=== PATIENT | female | born 1940 | race Caucasian/White ===

== ENCOUNTER 2024-08-25 07:46 | Outpatient (CLI) | payer MEDICARE, SELFPAY ==
--- NOTE | ~2024-08-25 | US_ITS ---
US abdomen complete EXAMINATION: US Abdomen Complete INDICATION: Chronic kidney disease PROCEDURE: Realtime High Resolution abdomen ultrasound. COMPARISON: No prior studies for comparison FINDINGS: Gallbladder within normal limits. No gallstones, pericholecystic fluid, gallbladder wall t hickening or biliary dilatation. Common bile duct measures 9 mm. Liver echotexture within normal limits without focal mass. Pancreas within normal limits. Pancreati c tail is obscured by bowel gas. Spleen is unremarkeable. Spleen measures 8.6 cm. Renal echotexture is within normal limits bilaterally without hydronephrosis, contour deforming mass or renal stone. Ri ght kidney measures 9 cm. Left kidney measures 9.9 cm. Visualized aspects of the aorta and IVC are within normal limits. Portal vein is patent. No sonograph ic Hatch's sign indicated by the technologist. IMPRESSION: 1: Normal abdominal ultrasound. Reviewed, dictated and finalized at location A.
== END 2024-08-25 07:47 | disposition home or self-care (01) ==
PROVIDERS: PCP Internal Medicine; Visit Provider Internal Medicine
DX: N18.9 Chronic kidney disease, unspecified (principal); R16.1 Splenomegaly, not elsewhere classified; D69.6 Thrombocytopenia, unspecified
CPT/HCPCS: 76700

== ENCOUNTER 2024-08-26 11:59 | Outpatient (CLI) | payer MEDICARE, SELFPAY ==
--- NOTE | ~2024-08-26 | US_ITS ---
Pelvic ultrasound. Clinical History: Chronic kidney disease, splenomegaly, thrombocytopenia Technique: Realtime transabdominal scanning of the pelvis was performed. Color flow Doppler and Doppl er spectral analysis were performed. Findings: The uterus is anteverted, and measures 4.8 x 2.3 x 2.3 cm. The endometrial stripe has a th ickness of 4 mm. No focal mass is identified. Neither ovary seen. No adnexal mass seen. There is no evidence of free fluid in the cul de sac. Impression: Unremarkable appearance of the uterus. Neither ovary visualized. Reviewed, dictated and finalized at location . Impression: Unremarkable appearance of the uterus. Neither ovary visualized.
--- NOTE | ~2024-08-26 | US_ITS ---
EXAMINATION: US carotid duplex BI DATE: 08/26/2024 13:24 INDICATION: Carotid bruit TECHNIQUE: Grayscale, color Doppler, and pulsed Doppler images of the cervical carotid arteries were obtained. The degree of vessel stenosis is placed in one of the following categories: normal, <50%, 5 0-69%, >=70% but less than near-occlusion, near-occlusion, or total occlusion. Note that percent sten osis relative to normal distal artery lumen diameter is indirectly measured from velocity measurement s as described by Phil, et al. Radiology 2003; 229:340-346. Notes: Normal: Peak systolic velocity <125 centimeters/sec and no plaque <50%. Peak systolic velocity <125 ( EDV <40; ICA/CCA PSV ratio <2.0; used these factors only a tandem lesions or low cardiac output or co ntralateral disease) 50-69 %: PSV 125-230 (EDV 40-100; ratio 2-4) >= 70% but less than near occlusion: PSV greater than 230 (EDV > 100; ratio> 4.0) Near Occlusion: PSV that is variable; markedly narrowed lumen Occlusion: Absent flow on color/spectral Doppler and no lumen on smith scale. COMPARISON: None. FINDINGS: RIGHT: The right common carotid artery (CCA) peak systolic velocity (PSV) is 65 cm/s. The right internal car otid artery (ICA) PSV is 169 cm/s. The right ICA end-diastolic velocity (EDV) is 36 cm/s. The right I CA/CCA PSV ratio is 2.6. The external carotid artery (ECA) PSV is 96 cm/s. There is antegrade flow in the right vertebral artery. LEFT: The left CCA PSV is 68 cm/s. The left ICA PSV is 102 cm/s. The left ICA EDV is 25 cm/s. The left ICA/ CCA PSV ratio is 1.5. The ECA PSV is 104 cm/s. There is antegrade flow in the left vertebral artery. IMPRESSION: 1. 50-69% stenosis in the right internal carotid artery by sonographic criteria. 2. Less than 50% stenosis in the left internal carotid artery by sonographic criteria. Reviewed, dictated and finalized at location A. IMPRESSION: 1. 50-69% stenosis in the right internal carotid artery by sonographic criteria . 2. Less than 50% stenosis in the left internal carotid artery by sonographic cr iteria.
--- NOTE | ~2024-08-26 | DEXA_ITS ---
Bone Density Report Name: CHET PIMENTEL Age: 84 Sex: Female Ethnicity: White Date of : 1940 Indication: postmenopausal; screening for osteoporosis; prior fracture; cancer; Referring Provider: Eliseo Mar Study: Bone densitometry was performed. Exam Date: August 26, 2024 Accession number: [id number] Bone Density: Region BMD T-score Z-score Classification AP Spine(L1-L4) 0.929 -1.1 1.8 Osteopenia Femoral Neck (Left) 0.500 -3.1 -0.6 Osteoporosis Total Hip (Left) 0.659 -2.3 0.0 Osteopenia World Health Organization criteria for BMD impression classify patients as: Normal (T-score at or above -1.0), Osteopenia (T-score between -1.0 and -2.5), or Osteoporosis (T-score at or below -2.5). 10-year Fracture Risk: FRAX not reported because: Some T-score for Spine Total or Hip Total or Femoral Neck at or below -2.5 Prior hip or vertebral fracture Clinical Information Provided by Patient: Have had a previous hip or vertebral fracture Has had a low trauma fracture Has used the following medications: Vitamin D Has the following medical conditions: Cancer Patient maximum height was 65 Menopause Age: 48 No regular weight bearing exercise Drinks caffeinated beverages Onset of menses at age 10 Number of children 3 Impression: The patient has established osteoporosis, based on the Left Femoral Neck T-score and the existence of a prior fracture. The patient has risk factors, including: previous fracture. Discussion: HIGH RISK OF FRACTURE. BONE DENSITY IS UNDESIRABLY LOW AT ONE OR MORE SKELETAL SITES, CONSISTENT WITH POSTMENOPAUSAL OSTEOPOROSIS. This patient's lowest T-score, in a patient who has previously fractured, meets the World Health Organization's (WHO) criteria for severe osteoporosis. In untreated patients, the risk of osteoporotic fracture increases approximately two-fold for each 1.0 SD decrease in T-score. Low bone density is not the only risk factor for fracture; also consider factors such as patient's age, frailty or poor health, risk of falling, risk of injury, previous osteoporotic fracture, family history of osteoporosis, cigarette smoking, low body weight, etc. Not everyone with low bone mineral density has osteoporosis; osteomalacia and other metabolic bone disorders should also be considered. Patients who have osteoporosis should be evaluated for specific diseases and conditions (secondary causes) that may cause or contribute to bone loss. The [place] [employer] Endocrinologists (AACE) and National Osteoporosis Foundation (NOF) recommend pharmacologic intervention for all postmenopausal women with a previous hip or vertebral fracture and a T-score in this range. The patient should follow a healthful lifestyle (good nutrition with adequate calcium and vitamin D, and appropriate weight-bearing exercise). Follow-Up: Consider a repeat BMD and Vertebral Fracture Assessment (VFA) exam in 2 years or sooner if medically necessary, to reassess this patient's status. Reported by: KLEVER on 08/26/2024 1:44:00 PM. Reviewed, dictated and finalized at location A.
--- NOTE | ~2024-08-26 | XR_ITS ---
3 VIEWS LUMBAR SPINE Ordering provider: Eliseo Mar MD History: . LOW BACK PAIN . Comparison: None. FINDINGS: VERTEBRAL BODIES:Dextroscoliosis. No visible fracture or subluxation. DISK SPACES: Degenerative disc disease at the level of L3-L4 and L4-L5. Multilevel facet joint diseas e. SOFT TISSUES: Atherosclerotic changes of the aorta. IMPRESSION: No acute osseous abnormality lumbar spine. Multilevel degenerative disc disease. Reviewed, dictated and finalized at location A.
--- NOTE | ~2024-08-26 | US_ITS ---
US arterial ankle brachial ind INDICATION: Peripheral arterial disease TECHNIQUE: Segmental pressures and plethysmographic and Doppler waveforms of the brachial and lower e xtremity arteries were obtained. COMPARISON: None. FINDINGS: Right and left brachial artery pressures of 164 mm Hg and 166 mm Hg, respectively, are concordant (no rmal difference <= 30 mmHg). The right ankle-brachial index (ANNA) is 0.98 (normal >= 0.9-1.0). The right great toe-brachial index (TBI) is 0.57 (normal >= 0.60). The left ANNA is 1.05. The left TBI is 0.53. There is biphasic flow in the dorsalis pedis arteries bilaterally and monophasic flow in the posterio r tibial arteries. IMPRESSION: 1. Mildly diminished bilateral toe brachial indices consistent with peripheral arterial disease. 2: Normal ankle-brachial indices. Reviewed, dictated and finalized at location A.
--- NOTE | ~2024-08-26 | MM_ITS ---
EXAMINATION: MM screening jocelyn BI w edd HISTORY: Screening TECHNIQUE: Craniocaudal and mediolateral oblique 3-D tomosynthesis images were obtained and synthetic 2-D images were generated. CAD analysis was submitted and interpreted. COMPARISON: No prior mammogram is available for comparison at this institution. BREAST PARENCHYMAL COMPOSITION: Not dense: There are scattered areas of fibroglandular density. FINDINGS: There is distortion in the left breast in the lower inner quadrant, likely from prior lumpe ctomy. Clinically correlate. There is no evidence of suspicious mass, calcification, or architectural distortion to suggest malignancy in either breast. There has been no suspicious interval change. IMPRESSION: 1. Distortion of the left breast is most likely postsurgical. 2. Recommend comparison to previous outside mammograms. BI-RADS Category 0: Incomplete: Needs additional imaging evaluation. Reviewed, dictated and finalized at location A.
--- NOTE | ~2024-08-26 | XR_ITS ---
XR hip BI wo pelvis Ordering provider: Eliseo Mar MD History: . B/L HIP PAIN . Comparison: None. FINDINGS: BONES: No acute fracture or dislocation. HIP JOINT SPACES: Total right hip arthroplasty. Severe left hip osteoarthritic changes. SACROILIAC JOINT SPACES: The sacroiliac joint spaces are normal. PUBIC SYMPHYSIS: Normal. SOFT TISSUES: Normal. IMPRESSION: No acute osseous abnormality of the bilateral hips and pelvis. Right hip arthroplasty. Left hip severe osteoarthritic changes. Reviewed, dictated and finalized at location A.
--- NOTE | ~2024-08-26 | XR_ITS ---
XR chest 2V 08/26/2024 13:15 Indication: CHF Procedure: 2 view chest Comparison: No prior studies for comparison. Findings: Heart size normal. There is a prosthetic heart valve. Pacemaker leads in expected position. Small right pleural effusion. There is apical pleural thickening/scarring with calcified granulomas at the right apex. No focal pneumonia or pneumothorax. No acute osseous abnormality. There is atheros clerosis of the aorta. Impression: 1: Small right pleural effusion. Reviewed, dictated and finalized at location A. Impression: 1: Small right pleural effusion.
== END 2024-08-26 12:00 | disposition home or self-care (01) ==
LOC: CHSIMG 12:02
PROVIDERS: PCP Internal Medicine; Visit Provider Internal Medicine
DX: Z12.31 Encounter for screening mammogram for malignant neoplasm of breast (principal); I50.9 Heart failure, unspecified; M81.0 Age-related osteoporosis without current pathological fracture; I73.9 Peripheral vascular disease, unspecified; M25.552 Pain in left hip; M25.551 Pain in right hip; R09.89 Other specified symptoms and signs involving the circulatory and respiratory systems; M54.50 Low back pain, unspecified; M85.89 Other specified disorders of bone density and structure, multiple sites; Z96.641 Presence of right artificial hip joint; M16.12 Unilateral primary osteoarthritis, left hip; M51.369 Other intervertebral disc degeneration, lumbar region without mention of lumbar back pain or lower extremity pain; J90 Pleural effusion, not elsewhere classified; I65.23 Occlusion and stenosis of bilateral carotid arteries; R92.8 Other abnormal and inconclusive findings on diagnostic imaging of breast
CPT/HCPCS: 71046; 72100; 73521; 76856; 77063; 77067; 77080; 93880; 93922

== ENCOUNTER 2024-09-15 11:53 | Outpatient (CLI) | payer MEDICARE, SELFPAY ==
--- NOTE | 2024-09-15 11:59 | ECHO_ITS ---
Patient Info Name: Cary Schneider Age: 84 years : 1940 Gender: Female Ht: 65 in Wt: 165 lbs BSA: 1.87 m2 HR: 75 bpm BP: 160 / 69 mmHg Heart Rhythm: Sinus Rhythm Technical Quality: Fair Exam Date: 09/15/2024 12:14 PM Patient Status: O Admit Date: 09/15/2024 Exam Type: CA echo doppler color flow Complete two-dimensional, color flow and Doppler transthoracic echocardiogram is performed. Religious Education Director: Julita Toure Attending Provider: Eliseo Mar MD Summary 1. Complete two-dimensional, color flow and Doppler transthoracic echocardiogram is performed. 2. Left ventricular chamber dimension is normal. 3. Left ventricular systolic function is normal, estimated at 60-65. 4. There is mild concentric increased left ventricular wall thickness. 5. The left ventricular diastolic function is grade I diastolic dysfunction. 6. E/e' 27 is significantly elevated. 7. Linear artifact in right ventricle suggestive of catheter(s), pacemaker lead(s), or ICD lead(s). 8. Left atrial chamber dimension is moderately enlarged. 9. Right atrial chamber dimension is mildly enlarged. 10. Linear artifact in the right atrium suggestive of catheter(s), pacemaker lead(s), or ICD lead(s). 11. The aortic valve is not well visualized. Cannot determine number of aortic valve leaflets. 12. There is mild aortic valve stenosis with a peak velocity of 287 cm/s, mean gradient of 17 mmHg, and aortic valve area of 1.9 cm2. 13. There is mild aortic valve regurgitation. 14. The mitral valve has moderately calcified leaflets and a moderately calcified annulus. 15. There is mild mitral valve stenosis based on mean gradient of 9 mmHg and valve area of 1.9 cm2 by PHT. 16. There is mild mitral valve regurgitation. 17. There is mild tricuspid valve regurgitation. 18. Mild pulmonary hypertension, estimated pulmonary arterial systolic pressure is 48 mmHg. Left Ventricle Left ventricular chamber dimension is normal. Left ventricular systolic function is normal, estimated at 60-65. There is mild concentric increased left ventricular wall thickness. The left ventricular diastolic function is grade I diastolic dysfunction. E/e' 27 is significantly elevated. Right Ventricle Right ventricular chamber dimension is normal. Right ventricular systolic function is normal. Linear artifact in right ventricle suggestive of catheter(s), pacemaker lead(s), or ICD lead(s). Left Atria Left atrial chamber dimension is moderately enlarged. Right Atria Right atrial chamber dimension is mildly enlarged. Linear artifact in the right atrium suggestive of catheter(s), pacemaker lead(s), or ICD lead(s). Aortic Valve The aortic valve is not well visualized. Cannot determine number of aortic valve leaflets. There is mild aortic valve stenosis with a peak velocity of 287 cm/s, mean gradient of 17 mmHg, and aortic valve area of 1.9 cm2. There is mild aortic valve regurgitation. Pulmonic Valve There is no pulmonic regurgitation. Mitral Valve The mitral valve has moderately calcified leaflets and a moderately calcified annulus. There is mild mitral valve stenosis based on mean gradient of 9 mmHg and valve area of 1.9 cm2 by PHT. There is mild mitral valve regurgitation. Tricuspid Valve There is mild tricuspid valve regurgitation. Mild pulmonary hypertension, estimated pulmonary arterial systolic pressure is 48 mmHg. Pericardium/Pleural There is no pericardial effusion. Inferior Vena Cava Normal inferior vena cava with >50% collapse upon inspiration consistent with normal right atrial pressure, 5 mmHg. Aorta The aortic root size at the sinus of Valsalva is normal. Left Ventricular Outflow Tract Name Value Normal LVOT 2D LVOT Diameter 2.0 cm LVOT Doppler LVOT Peak Velocity 163 cm/s LVOT Peak Gradient 11 mmHg LVOT Mean Gradient 7 mmHg LVOT VTI 40 cm LVOT VTI/AV VTI Ratio 0.6 LVOT Stroke Volume 131 ml LVOT CO 23.9 l/min LVOT CI 12.8 l/min/m2 Pulmonic Valve Name Value Normal RVOT Doppler RVOT Peak Gradient 3 mmHg PV Doppler PV Peak Velocity 127 cm/s PV Peak Gradient 6 mmHg Mitral Valve Name Value Normal MV Doppler MV Peak Gradient 19 mmHg MV Mean Gradient 9 mmHg MV Area (Cont Eq VTI) 2.0 cm2 MV Regurgitation Doppler MR Peak Gradient 39 mmHg MV Diastolic Function MV E Peak Velocity 176 cm/s MV A Peak Velocity 163 cm/s MV E/A 1.1 MV Decel Time (PW) 384 ms MV Annular TDI MV E/e' (Septal) 33.8 MV E/e' (Lateral) 23.2 MV E/e' (Average) 28.5 Tricuspid Valve Name Value Normal TV Regurgitation Doppler TR Peak Velocity 329 cm/s TR Peak Gradient 43 mmHg Estimated PAP/RSVP RA Pressure 5 mmHg <=5 PA Systolic Pressure 48 mmHg <36 RV Systolic Pressure 48 mmHg <36 TV Annular TDI TV Lateral Claudia s' Velocity 9.2 cm/s >=9.5 Aortic Valve Name Value Normal AV Doppler AV Peak Velocity 287 cm/s AV Peak Gradient 32 mmHg AV Mean Gradient 17 mmHg AV VTI 68 cm AV Area (Cont Eq VTI) 1.9 cm2 >=3.0 AV Area (Cont Eq Ti) 1.9 cm2 AV DI (Ti) 0.57 AV Regurgitation 2D LVOT Area 3.3 cm2 Ventricles Name Value Normal LV Dimensions 2D/MM IVS Diastolic Thickness (2D) 1.3 cm 0.6-1.0 LVID Diastole (2D) 4.0 cm 3.8-5.2 LVIW Diastolic Thickness (2D) 1.2 cm 0.6-0.9 LVID Systole (2D) 2.7 cm 2.2-3.5 LVOT Diameter 2.0 cm LV Mass (2D Cubed) 174.73 g 67.00-162.00 LV Mass Index (2D Cubed) 93 g/m2 43-95 Relative Wall Thickness (2D) 0.62 <=0.42 LV Fractional Shortening/Ejection Fraction 2D/MM LV Fractional Shortening (2D) 32 % 27-45 LV EF (2D Teichholz) 61 % LV Diastolic Volume (4C MOD) 72 ml LV EF (4C MOD) 62 % LV Diastolic Volume (2C MOD) 95 ml LV EF (2C MOD) 65 % LV Diastolic Volume (BP MOD) 83 ml 46-106 LV Diastolic Volume Index (BP MOD) 44 ml/m2 29-61 LV Systolic Volume (BP MOD) 30 ml 14-42 LV Systolic Volume Index (BP MOD) 16 ml/m2 8-24 LV EF (BP MOD) 64 % 54-74 LV Diastolic Length (4C) 7.3 cm LV Systolic Length (4C) 6.2 cm LV Stroke Volume (4C MOD) 45 ml Atria Name Value Normal LA Dimensions LA Volume (4C A-L) 75 ml LA Volume (BP A-L) 77 ml RA Dimensions RA Systolic Major [place] Length (4C) 4.2 cm 2.2-2.8 RA Area (4C) 16.3 cm2 <=18.0 Report Signatures
== END 2024-09-15 11:54 | disposition home or self-care (01) ==
LOC: CHSIMG 11:54
PROVIDERS: PCP Internal Medicine; Visit Provider Internal Medicine
DX: I50.9 Heart failure, unspecified (principal); M81.0 Age-related osteoporosis without current pathological fracture; I73.9 Peripheral vascular disease, unspecified; M54.50 Low back pain, unspecified; M25.552 Pain in left hip; M25.551 Pain in right hip; R09.89 Other specified symptoms and signs involving the circulatory and respiratory systems; I27.20 Pulmonary hypertension, unspecified; I08.3 Combined rheumatic disorders of mitral, aortic and tricuspid valves; I35.0 Nonrheumatic aortic (valve) stenosis
CPT/HCPCS: 93306

== ENCOUNTER 2024-10-13 13:26 | Emergency (ER) | payer MEDICARE, SELFPAY ==
--- NOTE | ~2024-10-13 | XR_ITS ---
XR chest 2V Ordering provider: Hector Mahmood MD History: 84 years Female with . swelling legs X1WK . Comparison: August 26 2024 FINDINGS: MEDIASTINUM: The cardiac silhouette is not enlarged. Left bipolar pacemaker. LUNGS: No infiltrates, effusions or pneumothorax. Prominent bronchovascular markings in the left lowe r lobe Bilateral apical pleural thickening with calcification is seen. OTHER: No free air under the diaphragm. IMPRESSION: Prominent bronchovascular markings in the lower lobes more on the left side. Atelectasis versus pneum onia cannot be excluded. Clinical correlation advised. Reviewed, dictated and finalized at location A. IMPRESSION: Prominent bronchovascular markings in the lower lobes more on the left side. At electasis versus pneumonia cannot be excluded. Clinical correlation advised.
--- NOTE | ~2024-10-13 | US_ITS ---
BILATERAL LOWER EXTREMITY VENOUS ULTRASOUND Ordering provider: Hector Mahmood MD History: . swelling pain legs bilateral . Comparison: None. FINDINGS: RIGHT LOWER EXTREMITY VEINS: --COMMON FEMORAL: Patent and free of thrombus. Normal compressibility, phasic flow and augmentation. --PROXIMAL SUPERFICIAL FEMORAL: Patent and free of thrombus. Normal compressibility, phasic flow and augmentation. --DISTAL SUPERFICIAL FEMORAL: Patent and free of thrombus. Normal compressibility, phasic flow and au gmentation. --POPLITEAL: Patent and free of thrombus. Normal compressibility, phasic flow and augmentation. --POSTERIOR TIBIAL: Patent and free of thrombus. Normal compressibility, phasic flow and augmentation . LEFT LOWER EXTREMITY VEINS: --COMMON FEMORAL: Patent and free of thrombus. Normal compressibility, phasic flow and augmentation. --PROXIMAL SUPERFICIAL FEMORAL: Patent and free of thrombus. Normal compressibility, phasic flow and augmentation. --DISTAL SUPERFICIAL FEMORAL: Patent and free of thrombus. Normal compressibility, phasic flow and au gmentation. --POPLITEAL: Patent and free of thrombus. Normal compressibility, phasic flow and augmentation. --POSTERIOR TIBIAL: Patent and free of thrombus. Normal compressibility, phasic flow and augmentation . IMPRESSION: Negative bilateral lower extremity venous US. No deep vein thrombosis. Reviewed, dictated and finalized at location A.
[2024-10-13 13:27] VITALS: BP 181/83; PULSE 84; RESP 18; TEMP 36.8; O2SAT 100
--- NOTE | 2024-10-13 13:34 | ED_ITS ---
HPI - General Adult General Chief complaint: Extremity Problem,Nontraumatic Stated complaint: leg swelling Time Seen by Provider: 10/13/24 13:34 Source: patient Mode of arrival: ambulatory Limitations: no limitations History of Present Illness HPI narrative: 84-year-old white female brought in by her son complaining of some swelling in her lower extremities for the past year worse over the last week without any shortness of breath. She has pain in her lower extremities and she is on gabapentin for neuropathy cause unknown. She said the swelling has gotten worse over last week. She has minor scabs on both of her legs. Denies any cough shortness of breath fever chest pain difficulty breathing other swelling lumps or bumps problems eating or drinking voiding or stooling walking talking seeing or hearing dizziness or lightheadedness history of DVT congestive heart failure. She had unremarkable echocardiogram done September [address] Mar he ordered a bunch of tests but she does not know the results of this. denies any other complaints . 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 prior to discharge son came up to me at the ER desk stated his mother is an alcoholic living in assisted living and they take her to the bar and she has a jug at home. Related Data Allergies Allergy/AdvReac Type Severity Reaction Status Date / Time No Known Allergies Allergy Verified 10/13/24 13:30 Review of Systems 2 Review of Systems: All systems reviewed & are unremarkable except as noted in HPI and below PMFSH Comments moved from [place] to live with her son in June of this year. Exam 2 Narrative: White elderly female patient with no apparent distress.? Head normocephalic, atraumatic.? Eyes conjunctiva pink sclera nonicteric.? Extraocular movements are intact.? Ears externally normal. ?Oropharynx is clear with moist mucous membranes without exudates.? Neck is supple nontender no lymphadenopathy.? Back is nontender.? Lungs are clear.? Heart is regular rate and rhythm with 3/6 systolic murmur murmurs without gallops or rubs.? Chest wall nontender. Abdomen is soft and nontender no hepatosplenomegaly or masses no CVA tenderness no abdominal bruits.? Extremities: +2 edema of her lower extremities dried flaky with some scabs with underlying erythema and tenderness especially on the left greater than the right. Negative Homans sign. No cyanosis clubbing.? Skin is warm and dry with With multiple small scabs specially at her legs.? Neurological patient is alert and oriented x4.? Motor and sensory grossly intact.? Gait is normal. Course Vital Signs Vital signs: Vital Signs Temperature 36.8 C 10/13/24 13:27 Pulse Rate 84 10/13/24 13:27 Respiratory Rate 18 10/13/24 13:27 Blood Pressure 181/83 H 10/13/24 13:27 Pulse Oximetry 100 10/13/24 13:27 Oxygen Delivery Room Air 10/13/24 13:27 Temperature 36.8 C 10/13/24 13:27 Pulse Rate 84 10/13/24 13:27 Respiratory Rate 18 10/13/24 13:27 Blood Pressure 181/83 H 10/13/24 13:27 Pulse Oximetry 100 10/13/24 13:27 Oxygen Delivery Room Air 10/13/24 13:27 Medical Decision Making MDM Narrative Medical decision making narrative: Patient was placed in Room # One with her son History and physical was performed. H&H was 10.733.1 with platelets of 103 and normal WBC. D-dimer is 1.47 potassium was 5.4 on September 28 it was 4.6 her BNP then was 337 today it is 1410. Her BUN and creatinine today are 29 and 1.78 her creatinine was 1.78. GFR is 28 rest of her chemistries were normal. Troponin was normal. , TSH was normal two-view chest x-ray per radiologist:Prominent bronchovascular markings in the lower lobes more on the left side. Atelectasis versus pneumonia cannot be excluded. Clinical correlation advised. Use Doppler ultrasound bilateral extremities lower: :? Negative bilateral lower extremity venous ultrasound.? No deep vein thrombosis Independent Historian: son , discussed with [id number] Addis patient has appointment on the and the with a picking crew supervisor and software configuration engineer next week. External Source Review: Differential Dx includes but not limited to: cellulitis DVT congestive heart failure liver disease hypothyroidism Medications were Reviewed: home meds reviewed Independently Interpreted by me: EKG showed electronic atrial pacemaker at a rate of 66 impression abnormal EKG as independently interpreted by me. Meds, treatment, ED course: 3:46 p.m. prior to discharge son came up to me at the ER desk stated his mother is an alcoholic living in assisted living and they take her to the bar and she has a jug at home. Social Situation Impacting Patients Care: patient is alert and oriented x4 but she does have some memory problems according to her son. Shared decision Making: Evaluation was discussed with patient her son and [id number] all questions were asked and answered and they agreed with the plan. She take Lasix 20 mg daily for the next 3 days follow up with her software configuration engineer and picking crew supervisor next week and return if she got worse or develops any new symptoms. She would repeat her potassium next week. DISCHARGE DIAGNOSIS: Cellulitis of the lower extremities congestive heart failure chronic kidney disease stage IIIB, history alcoholism DISPOSITION: discharge home CONDITION AT DISCHARGE: stable patient remained hemodynamically and neurologically intact during her emergency medicine stay. Vital Signs Vital Signs: Vital Signs Temperature 36.8 C 10/13/24 13:27 Pulse Rate 84 10/13/24 13:27 Respiratory Rate 18 10/13/24 13:27 Blood Pressure 181/83 H 10/13/24 13:27 Pulse Oximetry 100 10/13/24 13:27 Oxygen Delivery Room Air 10/13/24 13:27 Temperature 36.8 C 10/13/24 13:27 Pulse Rate 84 10/13/24 13:27 Respiratory Rate 18 10/13/24 13:27 Blood Pressure 181/83 H 10/13/24 13:27 Pulse Oximetry 100 10/13/24 13:27 Oxygen Delivery Room Air 10/13/24 13:27 Lab Data 10/13/24 14:04 10/13/24 14:04 Labs: Lab Results 10/13/24 10/13/24 Range/Units 14:00 14:04 WBC 6.1 (4.8-10.8) K/mm3 RBC 3.35 L (4.20-5.40) M/mm3 Hgb 10.7 L (11.7-13.8) g/dL Hct 33.1 L (35.0-42.0) % MCV 98.8 (78.0-102.0) fL MCH 31.9 H (27.0-31.0) pg MCHC 32.3 (32-36) g/dL RDW 12.3 (11.6-14.4) % Plt Count 103 L (150-420) K/mm3 MPV 9.6 (9.2-11.8) fl PT 10.3 (9.50-12.1) Seconds INR 0.9 APTT 26.4 (23.9-30.70) Sec D-Dimer 1.47 H (0.19-0.50) mg/L Sodium 137 (137-145) mmol/L Potassium 5.4 H (3.4-5.0) mmol/L Chloride 103 (98-107) mmol/L Carbon Dioxide 30 (22-30) mmol/L Anion Gap 4 (4-12) mmol/L BUN 29 H (7-17) mg/dL Creatinine 1.72 H (0.7-1.0) mg/dL Estim Creat Clear Calc 20 ml/min Estimated GFR 28 L (59 - ) Glucose 119 H (65-110) mg/dL Calculated Osmolality 290 (285-295) mOsm/kg Calcium 8.8 (8.4-10.2) mg/dL Magnesium 1.9 (1.6-2.3) mg/dL Total Bilirubin 0.4 (0.2-1.3) mg/dL AST 34 (14-36) U/L ALT 22 (6-35) U/L Alkaline Phosphatase 96 (38-126) U/L Troponin I 0.022 (0.000-0.034) ng/mL NT-Pro-B Natriuret Pep 1410 H (19.9-100) pg/mL Total Protein 7.1 (6.3-8.2) g/dL Albumin 4.1 (3.5-5.1) g/dL TSH 2.130 (0.465-4.680) uIU/mL Urine Color Light yellow (Yellow) Urine Appearance Clear (Clear) Urine pH 6.0 (5.0-8.0) Ur Specific [place] 1.010 (1.010-1.020) Urine Protein Negative (Negative) Urine Glucose (UA) Negative (Negative) Urine Ketones Negative (Negative) Ur Blood (Man) Negative (Negative) Urine Nitrate Negative (Negative) Urine Bilirubin Negative (Negative) Urine Urobilinogen 0.2 (0.2-1.0) mg/dL Leukocyte Esterase Rfl Trace H (Negative) CLIVE/UL Urine RBC 0-2 (0-2) /hpf Urine WBC 6-10 H (0-3) /hpf Ur Squamous Epith Cells Few (Few) /hpf Urine Bacteria Trace (None) /hpf Discharge Plan Discharge Clinical Impression: Cellulitis of left lower leg, Cellulitis of right lower leg, Hyperkalemia Congestive heart failure Qualifiers: Heart failure type: unspecified Heart failure chronicity: chronic Qualified Code(s): I50.9 - Heart failure, unspecified Chronic kidney disease Qualifiers: Chronic kidney disease stage: stage 3 (moderate) Chronic kidney disease stage 3 subtype: stage 3b (GFR 30-44) Qualified Code(s): N18.32 - Chronic kidney disease, stage 3b Patient Disposition: Home Condition: Stable Instructions: Antibiotic Form Additional Instructions: Augmentin 875 twice a day for 10 days. Take Lasix 20 mg daily for the next 5 days. Follow-up with your picking crew supervisor and software configuration engineer next week on the and the as scheduled. Return if you get worse or develops any new symptoms Patient Language: Croatian Follow-up/Referrals: Eliseo Mar MD [Primary Care Provider] -
--- NOTE | 2024-10-13 13:51 | ECG_ITS ---
Test Date: 2024-10-13 14:02:13 Measurements Intervals [place] Rate: 66 P: 115 WI: 265 QRS: -25 QRSD: 117 T: 80 QT: 418 QTc: 439 Interpretive Statements ELECTRONIC ATRIAL PACEMAKER INTRAVENTRICULAR CONDUCTION DELAY BORDERLINE R WAVE PROGRESSION, ANTERIOR LEADS BASELINE ARTIFACT- I, II, III, AVR, AVL, AVF BORDERLINE ECG No previous ECG available for comparison Electronically Signed On 10-13-2024 14:14:53 CDT by Aguilar Garcia D.O.
[2024-10-13 14:11] LABS: Hematocrit 33.1 % (35.0-42.0); Hemoglobin 10.7 g/dL (11.7-13.8); Mean Corpuscular HGB Conc 32.3 g/dL (32-36); Mean Corpuscular Hemoglobin 31.9 pg (27.0-31.0); Mean Corpuscular Volume 98.8 fL (78.0-102.0); Mean Platelet Volume 9.6 fl (9.2-11.8); Platelet Count Result 103 K/mm3 (150-420); Red Blood Count 3.35 M/mm3 (4.20-5.40); Red Cell Distribution Width 12.3 % (11.6-14.4); White Blood Count 6.1 K/mm3 (4.8-10.8)
[2024-10-13 14:24] LABS: Magnesium 1.9 mg/dL (1.6-2.3)
[2024-10-13 14:25] LABS: Alanine Aminotransferase 22 U/L (6-35); Albumin Level 4.1 g/dL (3.5-5.1); Alkaline Phosphatase 96 U/L (38-126); Anion Gap 4 mmol/L (4-12); Aspartate Amino Transferase 34 U/L (14-36); Bilirubin,Total 0.4 mg/dL (0.2-1.3); Blood Urea Nitrogen 29 mg/dL (7-17); Calcium 8.8 mg/dL (8.4-10.2); Carbon Dioxide 30 mmol/L (22-30); Chloride 103 mmol/L (98-107); Estimated CRCL calculation 20 ml/min; Estimated Glomerular Filt Rate 28; Glucose 119 mg/dL (65-110); Osmolality Calculated 290 mOsm/kg (285-295); Potassium 5.4 mmol/L (3.4-5.0); Sodium 137 mmol/L (137-145); Total Protein 7.1 g/dL (6.3-8.2)
[2024-10-13 14:30] VITALS: BP 165/83; PULSE 49; RESP 17; O2SAT 94
[2024-10-13 14:31] LABS: D Dimer 1.47 mg/L (0.19-0.50); INR 0.9; Partial Thromboplastin Time 26.4 Sec (23.9-30.70); Prothrombin Time 10.3 Seconds (9.50-12.1)
--- NOTE | 2024-10-13 14:32 | PC.NURSE ---
Patient taken down to ultrasound.
[2024-10-13 14:37] LABS: Troponin I 0.022 ng/mL (0.000-0.034)
--- NOTE | 2024-10-13 15:00 | PC.NURSE ---
Patient back from radiology department, taken down to bathroom for UA
[2024-10-13 15:04] LABS: NT Pro B Type Natriuretic Pept 1410 pg/mL (19.9-100)
--- OUTSIDE RECORDS SUMMARY | 2024-10-13 15:12 | XMS_ITS | Patient Health Record ---
Author Organization [facility] Address [address] [place] [id number] Care Team Providers Care Computer Information Systems Professor Name Role Phone Mary KHAN M.D, Romulo Primary Care Provider Unavail able Nataliia Brand Unavailable Unavailable Allergies No Known Allergies Reason For Referral No Information Medications Medication SIG (Take, Route, Fr equency, Duration) Notes Start Date End Date Status Lisinopril Active rOPINIRole HCl Activ e Rosuvastatin Calcium Active Social History Tobacco Use: Social History Observation Description Date Details (start date - stop date) Never Smoker NA - NA Tobacco Use/Smoking Question Answer Notes Are you a nonsmoker Additional Findings: Tobacco Non-User Current no n-smoker Alcohol Screen (Audit-C) Question Answer Notes Did you have a drink contain ing alcohol in the past year? Yes How often did you have a dri nk containing alcohol in the past year? 4 or more times a week (4 points) Points 4 Interpretation Positive Problems Problem Type SNOMED Code ICD Code Onset Dates Problem Status W/U Status Risk Notes Problem Diverticular disease of colon (370603039) Diverticulosis of large intestine without perforation or abscess without bleeding (K57.30) Active confirmed Problem Residual hemorrhoidal skin tags (96591190) Residual hemorrhoidal skin tags (K64.4) Active confirmed Problem Nausea and vomiting (83904053) Nausea with vomiting, unspecified (R11.2) Active confirmed Problem History of polyp of colon (situation) (453639306) Personal history of colonic polyps (Z86.010) Active confirmed Problem Colon cancer screening (665882673) Screening Colon Cancer (Z12.11) Active confirmed Problem Dysphagia (23979559) Dysphagia (R13.10) Active confirmed Plan Of Treatment Pending Test Test Name Order Date COLONOSCOPY 07/25/2022 EGD 07/25/2022 US abdomen, limited to RUQ 07/25/2022 Insurance Providers Payer Name Payer Address Payer Phone Subscriber Number Group Number Insured Name Patient Relationship to Insured Coverage Start Date Coverage End Date [facility] [address] [place] [address] [id number] ER [id number] CHET PIMENTEL Self - patient is the insured Medical (General) History Medical History History ICD Code melanoma hypertension pacemaker AF Hyperlipidemia Surgical History Surgery Date(Month/Year) melanoma cancer cardiac pacemeker EGD 07/2022 COLONOSCOPY 07/2022
--- OUTSIDE RECORDS SUMMARY | 2024-10-13 15:12 | XMS_ITS | Patient Health Record ---
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 Name Role Phone Romulo Hernandez Primary Care Provider [phone] Sasha Cruz Unavailable [phone] Allergies No Known Allergies Results Component Value Reference Range Notes LIPID PANEL Reviewed date:01/09/2024 08:37:59 AM Interpretation: Performing Lab:[facility], [facility], [employer] [facility], Phone - [phone], Director - [id number] Ericka Notes/Report: CHOLESTEROL, TOTAL 152 170-199 MG/DL Reference Range Summary Desirable: <200 Borderline elevated: 200-239 Elevated: =>240 TRIGLYCERIDES 145 60-149 MG/DL Reference Range Summary Normal: <150 Borderline high: 150-199 High: 200-499 Very high: =>500 HDL CHOLESTEROL 70 40-<60 MG/DL Reference Range Summary Low: <40 Acceptable: 40-59 High: =>60 LDL CHOLESTEROL CALCULATED 53 95-129 MG/DL Reference Range Summary Optimal LDL-C for very high risk patients: less than 70 Optimal: less than 100 Near or above optimal: 100-129 Borderline high: 130-159 High: 160-189 Very high: greater than 189 NON-HDL CHOLESTEROL 82 0-<160 MG/DL(CALC) Reference Range Summary Desirable: less than 130 High: 160 to 189 Very high: greater than or equal to 190 COMPREHENSIVE METABOLIC PANE L Reviewed date:01/09/2024 08:37:59 AM Interpretation: Performing Lab:[facility], [facility], [address], Phone - [phone], Director - [id number] Ericka Notes/Report: SODIUM 137 136-145 MMOL/L POTASSIUM 4.9 3.3-5.3 MMOL/L CHLORIDE 99 98-107 MMOL/L CO2 27 22-30 MMOL/L UREA NITROGEN 24 6-21 MG/DL CREATININE 1.29 0.38-1.02 mg/dL BUN / CREAT RATIO 18.6 6.0-22.0 (CALC) GLUCOSE 98 65-99 MG/DL CALCIUM 9.0 8.4-10.2 MG/DL TOTAL PROTEIN 6.8 6.4-8.3 G/DL ALBUMIN 4.0 3.5-5.2 G/DL GLOBULIN, TOTAL CALCULATED 2.8 Not Establishe d G/DL ALBUMIN/GLOBULIN RATIO 1.4 Not Established (C ALC) BILIRUBIN TOTAL 0.5 0.0-1.0 MG/DL ALKALINE PHOSPHATASE 105 33-133 IU/L AST (SGOT) 17 13-37 IU/L ALT (SGPT) 10 0-35 IU/L ANION GAP 11 8-16 MMOL/L EGFR (CKD-EPI) 41 >=59 ML/MIN/1.73M2 Calcula tion based on the?Chronic Kidney Disease Epidemiology Collaboration (CKD-EPI) equation refit?without adjustment for race Vitamin D 25-Hydroxy Reviewed date:04/17/2024 08:37:42 AM Interpretation: Performing Lab:[facility], [facility], [facility] [address], Phone - [phone], Director - [id number] Ericka Notes/Report: VITAMIN D-25 44.26 20-120 NG/ML LIPID PANEL Reviewed date:04/17/2024 08:37:41 AM Interpretation: Performing Lab:[facility], [facility], [address], Phone - [phone], Director - [id number] Ericka Notes/Report: CHOLESTEROL, TOTAL 148 170-199 MG/DL Reference Range Summary Desirable: <200 Borderline elevated: 200-239 Elevated: =>240 TRIGLYCERIDES 152 60-149 MG/DL Reference Range Summary Normal: <150 Borderline high: 150-199 High: 200-499 Very high: =>500 HDL CHOLESTEROL 74 40-<60 MG/DL Reference Range Summary Low: <40 Acceptable: 40-59 High: =>60 LDL CHOLESTEROL CALCULATED 44 95-129 MG/DL Reference Range Summary Optimal LDL-C for very high risk patients: less than 70 Optimal: less than 100 Near or above optimal: 100-129 Borderline high: 130-159 High: 160-189 Very high: greater than 189 NON-HDL CHOLESTEROL 74 0-<160 MG/DL(CALC) Reference Range Summary Desirable: less than 130 High: 160 to 189 Very high: greater than or equal to 190 COMPREHENSIVE METABOLIC PANE L Reviewed date:04/17/2024 08:37:41 AM Interpretation: Performing Lab:[facility], [facility], [facility] [address], [facility], Phone - [phone], Director - [id number] Dianna Notes/Report: SODIUM 134 136-145 MMOL/L POTASSIUM 4.7 3.3-5.3 MMOL/L CHLORIDE 97 98-107 MMOL/L CO2 29 22-30 MMOL/L UREA NITROGEN 18 6-21 MG/DL CREATININE 1.28 0.38-1.02 mg/dL BUN / CREAT RATIO 14.1 6.0-22.0 (CALC) GLUCOSE 103 65-99 MG/DL CALCIUM 9.0 8.4-10.2 MG/DL TOTAL PROTEIN 6.8 6.4-8.3 G/DL ALBUMIN 4.2 3.5-5.2 G/DL GLOBULIN, TOTAL CALCULATED 2.6 Not Establishe d G/DL ALBUMIN/GLOBULIN RATIO 1.6 Not Established (C ALC) BILIRUBIN TOTAL 0.6 0.0-1.0 MG/DL ALKALINE PHOSPHATASE 105 33-133 IU/L AST (SGOT) 21 13-37 IU/L ALT (SGPT) 13 0-35 IU/L ANION GAP 8 EGFR (CKD-EPI) 41 >=59 ML/MIN/1.73M2 Calcula tion based on the?Chronic Kidney Disease Epidemiology Collaboration (CKD-EPI) equation refit?without adjustment for race Reason For Referral No Information Medications Medication SIG (Take, Route, Frequency, Duration) Notes Start Date End Date Status Vitamin D (Ergocalciferol) 1.25 MG (72888 UT) TAKE 1 CAPSULE BY MOUTH WEEKLY for 84 Active Omeprazole 40 MG TAKE 1 CAPSULE BY MO [facility] ONCE DAILY 30 MINUTES BEFORE MORNING MEAL for 90 Active Multi For Her 50+ Ac tive Metoprolol Succinate ER 25 MG TAKE 1 TABLET BY MOUTH DAILY for 90 days Active Gabapentin 300 MG TAKE 1 CAPSULE BY MO UTH DAILY for 100 Active Lisinopril 20 MG TAKE 1 TABLET BY EARNESTINE ONCE DAILY for 100 Active Ambien 1 tablet at bedtime as needed Orally at bedtime 11/28/2016 Not-Taking rOPINIRole HCl ROPINIRole HCl 2MG, 1 Tablet Tablet two times daily # 180, 09/10/2016, Ref. x1. Active Oral two times daily for 90 days Not-Taking Rosuvastatin Calcium 20 MG TAKE 1 TABLET BY MOUTH ONCE DAILY for 100 days Active rOPINIRole HCl 2 MG TAKE 1 TABLET BY EARNESTINE TWICE DAILY for 100 days Active Immunizations Vaccine Route Administration Date Status Comme nts COVID-19 Moderna Unknown 07/06/2020 Administered COVID-19 Moderna Unknown 08/03/2020 Administered FLUAD HIGH DOSE IM Intramuscular 12/21/2021 Administered Fluzone Quad Regular Flu Vaccine Unknown 02/16/2016 Administered INFLUENZA FLUCELVAX QUADRIVALENT REGULAR Unknown 02/27/2013 Administered INFLUENZA FLUCELVAX QUADRIVALENT REGULAR Unknown 02/11/2015 Administered Influenza, High dosage IM Intramuscular 01/22/2018 Adminis tered Influenza, High dosage IM Intramuscular 01/15/2019 Adminis tered Influenza, High dosage IM Intramuscular 02/18/2020 Adminis tered Influenza, High dosage IM Intramuscular 01/31/2021 Adminis tered Influenza, High dosage IM Intramuscular 04/04/2023 Adminis tered Influenza, High dosage IM Intramuscular 01/14/2024 Adminis tered tolerated PCV20 Vaccine IM Intramuscular 01/03/2023 Administered Pneumococcal conjugate PCV 13 Unknown 03/18/2017 Administered ZOSTER IM Intramuscular 10/14/2023 Administered Zoster (shingles) (01104) Unknown 02/08/2012 Administer ed Social History Tobacco Use: Social History Observation Description Date Details (start date - stop date) Former Smoker NA - NA Tobacco Use/Smoking Question Answer Notes Are you a former smoker How long has it been since you last smoked? > 10 years Alcohol Screen (Audit-C) Question Answer Notes Did you have a drink contain ing alcohol in the past year? Yes How often did you have a dri nk containing alcohol in the past year? 2 to 3 times a week (3 points) Points 3 Interpretation Positive Tobacco use other than smoking: Question Answer Notes Are you an other tobacco user? No OPIOID Risk Tool (2018 Edition) Question Answer Notes Family Hx Alcohol? No Family Hx Illegal Drugs? No Family Hx Rx Drugs? No Personal Hx Alcohol? No Personal Hx Illegal Drugs? No Personal Hx Rx Drugs? No Age between 16-45 years? No History of Preadolescent Sexual Abuse? No ADD, OCD, Bipolar, Schizophrenia? No Depression? No TOTAL SCORE 0 Risk Level for Opioid Use low Problems Problem Type SNOMED Code ICD Code Onset Dates Problem Status W/U Status Risk Notes Problem Malignant neoplasm of female breast (473160274) Malignant neoplasm of unspecified site of left female breast (C50.912) Active confirmed Problem 813706741 Mixed hyperlipidemia (E78.2) Active confirmed Problem 54903461 Metabolic encephalopathy (G93.41) Active confirmed Problem 69908527 Hypertensive heart disease with heart failure (I11.0) Active confirmed Problem 902017986841791 Acute combined systolic (congestive) and diastolic (congestive) heart failure (I50.41) Active confirmed Problem 060273820079989 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) Active confirmed Problem 676048007 Bilateral primar y osteoarthritis of hip (M16.0) Active confirmed Problem 805751156901453 Pain in right hi p (M25.551) Active confirmed Problem Hypertension (76862389) Hypertension (I10) 2015 Active confirmed bia-Hypertens ion Problem Hypothyroidism (89038934) Hypothyroidism, adult (E03.9) Active confirmed Problem 453534434 Neuropathy (G62.9) Active confirmed Problem Hyperlipidaemia (62948659) Hyperlipemia (E78.5) Active confirmed Problem Abnormal gait (02965713) Abnormal gait (R26.9) Active confirmed Problem 843402464 Acute rhinosinusitis (J01.90) Active confirmed Problem 6436600477744 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) Active confirmed Problem 929604522 Osteoarthrosis, hip, localized (M16.9) Active confirmed Problem 01215270 Hypertensive nephropathy (I12.9) Active confirmed Problem 30201388 Nephrolithiasis (N20.0) Active confirmed Problem 474570352990486 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) Active confirmed Problem 200150309703191 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) Active confirmed Problem Bilateral caroti d bruits (R09.89) Active confirmed Problem 272965954 CKD (chronic kidney disease) stage 3, GFR 30-59 ml/min (N18.3) Active confirmed Problem 76014029 Parkinson diseas e (G20) Active confirmed Problem 31206822 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) Active confirmed Problem 23579819 Hypertensive heart and chronic kidney disease with heart failure and stage 1 through stage 4 chronic kidney disease, or chronic kidney disease (I13.0) Active confirmed Problem 00488282 Acute renal failure, unspecified acute renal failure type (N17.9) Active confirmed Problem 542936776 Bilateral exudative age-related macular degeneration, 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) Active confirmed Problem 15090992 Murmur, cardiac (R01.1) Active confirmed Problem 82674071 Leaky heart valv e (I38) Active confirmed Problem 595534202 Status post righ t hip replacement (Z96.641) Active confirmed Problem 55661532 Carpopedal spasm (R29.0) Active confirmed Problem 878434823 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 Showed on Echo test done on 09-12-20 Problem 376628896 Stage 4 chronic kidney disease (N18.4) Active confirmed Problem 687756275 Hx of breast cancer (Z85.3) Active confirmed Problem 044306362 Stage 3a chronic kidney disease (CKD) (N18.31) Active confirmed Problem Hyperkalemia (37797932) Hyperkalemia (E87.5) 2016 Active confirmed bia-Hyperkale blanco Problem 04794872 Sick sinus syndrome (I49.5) 2015 Active confirmed Holter Monitor Report from 03/10/14 shows no SR and Ahrytimias. Carotid Artery Test from 03/24/14 Shows occluded R internal carotid aretery Problem Syncope and collapse (381278754) Syncope and collapse (R55) 2015 Active confirmed bia-Syncope and collapse Problem Impaired fasting glucose (158778682) Impaired fasting glucose (R73.01) 2015 Active confirmed bia-Impaired fasting glucose Problem Vitamin D deficiency (41706088) Vitamin D deficiency (E55.9) 2016 Active confirmed bia-Vitamin D deficiency Problem Dyslipidemia (634830904) Dyslipidemia (E78.5) 2016 Active confirmed bia-Dyslipide blanco Problem Gastroesophageal reflux disease (350916969) GERD (gastroesophageal reflux disease) (K21.9) 2016 Active confirmed bia-GERD (gastroesopha geal reflux disease) Problem Abnormal mammogram (555686337) Abnormal mammogram (R92.8) 2015 Active confirmed bia-Abnormal mammogram Problem Insomnia (216924709) Insomnia (G47.00) 2016 Active confirmed bia-Insomnia Problem Age-related macular degeneration (disorder) (960115937) Macular degeneration (H35.30) 2015 Active confirmed bia-Macular degeneration Problem Chronic back pain (041631401) Chronic back pain (M54.9) 2015 Active confirmed bia-Chronic back pain Problem Azotemia (702021072) Azotemia (R79.89) 2016 Active confirmed bia-Azotemia Problem Vitamin B12 deficiency (non anemic) (99350870) Vitamin B 12 deficiency (E53.8) 2015 Active confirmed bia-Vitamin B 12 deficiency Problem 899591723 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) 2016 Active confirmed bia-Mixed disorder as reaction to stress (308.4) Problem Mononeuropathy of lower limb (956453984) Neuropathy of foot (G57.90) 2016 Active confirmed bia-Neuropath y of foot Problem Counseling (270819624) Counseling NOS (V65.40) (Z71.9) 2016 Active confirmed bia-Counselin g NOS (V65.40) Problem 930156035 Pacemaker (Z95.0) 2015 Active confirmed bia-Pacemaker (V45.01) Problem Hip joint pain (2346926008) Hip joint pain (M25.559) 2014 Active confirmed bia-Hip joint pain Problem Restless legs (51470648) Restless leg syndrome, controlled (G25.81) 2016 Active confirmed bia-Restless leg syndrome, controlled Problem Pre-procedure evaluation check (284016095) Preoperative clearance (Z01.818) 2015 Active confirmed bia-Preoperat antolin clearance Problem Hip pain (14613598) Hip pain (M25.559) 2015 Active confirmed bia-Hip pain Problem 0308794020836 Carotid artery stenosis, symptomatic (I65.29) 2015 Active confirmed bia-Carotid artery stenosis, symptomatic (433.10) Problem Carcinoma in situ of breast (506358586) Carcinoma in situ, lobular, breast, 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) 2015 Active confirmed bia-Carcinoma in situ, lobular, breast, left Problem Bone loss (502420093) Bone loss (M89.8X9) 2015 Active confirmed bia-Bone loss Problem 95895107 Restless legs syndrome (RLS) (G25.81) 2015 Active confirmed bai-RLS (restless legs syndrome) (333.94) Problem 262206980 Flea bite of multiple sites (W57.XXXA) 2015 Active confirmed bia-Flea bite of multiple sites (919.4) Problem 37818589 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 Active confirmed bia-Tympanic membrane disorder (384.9) Problem 313868569 Encounter for complete eye exam (Z01.00) 2015 Active confirmed bia-Encounter for complete eye exam (V72.0) Vital Signs Heart Rate 85 /min 06/26/2024 Temperature 98.4 degrees Fahrenheit 06/26/2024 Respiratory Rate 16 /min 06/26/2024 Oximetry 95 % 06/26/2024 Blood pressure diastolic 81 mm Hg 06/26/2024 Height 66.00 in 06/26/2024 Blood pressure systolic 139 mm Hg 06/26/2024 Weight 155.6 lbs 06/26/2024 BMI 25.11 kg/m2 06/26/2024 Encounters Encounter Location Date Provider Diagnosis [facility] [address] [facility] [address] [place] [address] 10/14/2023 Romulo Agbo Hypertensive heart a nd chronic kidney disease with heart failure and stage 1 through stage 4 chronic kidney disease, or chronic kidney disease I13.0 ; Stage 3b chronic kidney disease N18.32 ; Mixed hyperlipidemia E78.2 ; Sick sinus syndrome I49.5 ; Macular degeneration H35.30 ; Mixed disorder as reaction to stress F43.0 ; Leaky heart valve I38 ; PHT (pulmonary hypertension) I27.20 ; Hypertensive nephropathy I12.9 ; Encounter for herpes zoster vaccination Z23 ; Medication management Z79.899 and Hx of breast cancer Z85.3 [facility] [address] [facility] [address] [place] [address] 01/14/2024 Romulo Agbo Mixed hyperlipidemia E78.2 ; Hypertensive heart disease with heart failure I11.0 ; Hypertensive nephropathy I12.9 ; Stage 3a chronic kidney disease (CKD) N18.31 ; Vitamin D deficiency E55.9 ; Low bone density M85.9 ; Breast cancer screening by mammogram Z12.31 ; Medication management Z79.899 ; Influenza vaccination administered at current visit Z23 ; Patient risk and functional assessment Z13.89 ; Depression screening Z13.31 and Encounter for tobacco use screening Z01.89 [facility] [address] [place] [address] [address] [place] [address] 01/17/2024 Sasha Cruz Encounter for genera l adult medical examination without abnormal findings Z00.00 ; Depression screening Z13.31 ; Encounter for tobacco use screening Z01.89 ; Alcohol screening Z13.89 ; At low risk for fall Z78.9 ; Advance care planning Z71.89 ; Exercise counseling Z71.82 ; Dietary counseling Z71.3 ; Encounter for screening examination for mental health and behavioral disorders, unspecified Z13.30 and Medication management Z79.899 [facility] [address] [place] [address] [address] [place] [address] 02/20/2024 Romulo Agbo Chronic combined systolic (congestive) and diastolic (congestive) heart failure I50.42 ; Respiratory crackles at right lung base R09.89 ; Exertional shortness of breath R06.02 ; Hypertensive nephropathy I12.9 and Medication management Z79.899 [facility] [address] [facility] [address] [place] [address] 04/20/2024 Romulo Hernandez [facility] [address] [place] [address] [address] [place] [address] 06/05/2024 Romulo Ageleni Mixed hyperlipidemia E78.2 ; Hypertensive heart and chronic kidney disease with heart failure and stage 1 through stage 4 chronic kidney disease, or chronic kidney disease I13.0 ; Stage 3b chronic kidney disease N18.32 ; Physical exam Z00.00 ; Medication management Z79.899 and Body mass index (BMI) of 24.0 to 24.9 in adult Z68.24 [facility] [address] [place] [address] [place] [address] 06/26/2024 Romulo Hernandez Restless legs syndro me (RLS) G25.81 ; Hypertensive nephropathy I12.9 ; Chronic combined systolic (congestive) and diastolic (congestive) heart failure I50.42 ; Hypertensive heart and chronic kidney disease with heart failure and stage 1 through stage 4 chronic kidney disease, or unspecified chronic kidney disease I13.0 ; Unspecified combined systolic (congestive) and diastolic (congestive) heart failure I50.40 ; Sick sinus syndrome I49.5 ; Malignant neoplasm of unspecified site of left female breast C50.912 ; Bilateral exudative age-related macular degeneration, unspecified stage H35.3230 ; Nephrolithiasis N20.0 ; GERD (gastroesophageal reflux disease) K21.9 ; Medication management Z79.899 ; S/P TAVR (transcatheter aortic valve replacement) Z95.2 and Body mass index (BMI) of 25.0-25.9 in adult Z68.25 [facility] [address] [place] [address] [address] [place] [address] 01/01/2024 Romulo Hernandez [facility] [address] [place] [address] [place] [address] 03/23/2024 Romulo Hernandez Assessments Encounter Date Diagnosis (ICD Code) Assessment Notes Treatment Notes Treatment Clinical Notes Section Notes 10/14/2023 Hypertensive heart and chronic kidney disease with heart failure and stage 1 through stage 4 chronic kidney disease, or chronic kidney disease (ICD-10 - I13.0) The patient's blood pressures are well controlled. Recommend continuing with the same medication(s). I will continue to monitor this in future appointments. The patient verbalizes understating 01/14/2024 Mixed hyperlipidemia (ICD-10 - E78.2) The patient's Lipid panel blood test shows stable. Recommend continuing with the same medication regimen treatment as discussed and with diet and exercise. I will continue to monitor Lipid panel lab levels in future appointments. The patient verbalizes understanding. 01/14/2024 Hypertensive heart disease with heart failure (ICD-10 - I11.0) The blood pressure reading is elevated today. The patient must recheck blood pressure at home and keep a log for review at the next visit. Continue with current antihypertensive medications, and with diet and exercise; call us back if blood pressure goes above 160/90. The patient verbalizes understanding. 01/17/2024 Encounter for general adult medical examination without abnormal findings (ICD-10 - Z00.00) Healthy lifestyle discussed with patient, including diet, vitamin supplement, exercise, non-smoking, safe sexual practices and reduction of stress. Assessment and plan reviewed with patient. 01/17/2024 Depression screening (ICD-10 - Z13.31) 02/20/2024 Chronic combined systolic (congestive) and diastolic (congestive) heart failure (ICD-10 - I50.42) Patient with valvular disease and dystolic disfunction. Crackles heard on right lung base and patient is symptomatically short of breath on exeration and difficulty to take deep breathes. Will start the patient on some lasix, and order a chest xray to asses. Patient will return for review. 02/20/2024 Respiratory crackles at right lung base (ICD-10 - R09.89) 06/05/2024 Mixed hyperlipidemia (ICD-10 - E78.2) The patient is stable, with abnormal Lipid panel labs at this time. Continue with the current medication regimen treatment as discussed and with diet and exercise. I will continue to monitor Lipid panel lab levels in future appointments. The patient verbalizes understanding. 06/05/2024 Hypertensive heart and chronic kidney disease with heart failure and stage 1 through stage 4 chronic kidney disease, or chronic kidney disease (ICD-10 - I13.0) The patient's blood pressure is mildly elevated. I recommend continuing with the same medication(s) at present but will monitor closely at home, and if persistently elevated, I will further increase the medication(s). 06/26/2024 Hypertensive nephropathy (ICD-10 - I12.9) Patient is stable. Continue with medication. 06/26/2024 Restless legs syndrome (RLS) (ICD-10 - G25.81) bia-RLS (restless legs syndrome) (333.94) Patient is stable. Continue with medication. 06/26/2024 Chronic combined systolic (congestive) and diastolic (congestive) heart failure (ICD-10 - I50.42) Patient is stable. 06/05/2024 Stage 3b chronic kidney disease (ICD-10 - N18.32) kidney disease issues were fully discussed including the natural Hx of the condition which is characterized by a gradual loss of kidney function over time. kidney dysfunction can be mitigated by remaining well hydrated and avoidance of potential nephrotoxic agents such as NSAIDs, gout medicines, among others 02/20/2024 Exertional shortness of breath (ICD-10 - R06.02) 01/17/2024 Encounter for tobacco use screening (ICD-10 - Z01.89) 01/14/2024 Hypertensive nephropathy (ICD-10 - I12.9) 10/14/2023 Stage 3b chronic kidney disease (ICD-10 - N18.32) BEING SEEN BY [facility] 10/14/2023 Mixed hyperlipidemia (ICD-10 - E78.2) The patient is stable, with abnormal Lipid panel labs at the time. Continue with the current medication regimen treatment as discussed and with diet and exercise. I will continue to monitor Lipid panel lab levels in future appointments. The patient verbalizes understating 01/17/2024 Alcohol screening (ICD-10 - Z13.89) 01/14/2024 Stage 3a chronic kidney disease (CKD) (ICD-10 - N18.31) kidney disease issues were fully discussed including the natural Hx of the condition which is characterized by a gradual loss of kidney function over time. kidney dysfunction can be mitigated by remaining well hydrated and avoidance of potential nephrotoxic agents such as NSAIDs, gout medicines, among others. 02/20/2024 Hypertensive nephropathy (ICD-10 - I12.9) 06/05/2024 Physical exam (ICD-10 - Z00.00) 06/26/2024 Hypertensive heart and chronic kidney disease with heart failure and stage 1 through stage 4 chronic kidney disease, or unspecified chronic kidney disease (ICD-10 - I13.0) The patient's blood pressures are well controlled. Recommend continuing with the same medication(s). I will continue to monitor this in future appointments. The patient verbalizes understanding. 06/26/2024 Unspecified combined systolic (congestive) and diastolic (congestive) heart failure (ICD-10 - I50.40) Patient is stable. 06/05/2024 Medication management (ICD-10 - Z79.899) 02/20/2024 Medication management (ICD-10 - Z79.899) 01/17/2024 At low risk for fall (ICD-10 - Z78.9) 0-1 fall in the past year 01/14/2024 Vitamin D deficiency (ICD-10 - E55.9) bia-Vitamin D deficiency The patient is stable, with abnormal Vitamin D3 labs at the time. Continue with the current D3 supplement regimen treatment as discussed. I will continue to monitor D3 lab levels in future appointments. The patient verbalizes understating. 10/14/2023 Sick sinus syndrome (ICD-10 - I49.5) Holter Monitor Report from 03/10/14 shows no SR and Ahrytimias. Carotid Artery Test from 03/24/14 Shows occluded R internal carotid aretery 10/14/2023 Macular degeneration (ICD-10 - H35.30) bia-Macular degeneration 01/17/2024 Advance care planning (ICD-10 - Z71.89) 01/14/2024 Low bone density (ICD-10 - M85.9) 06/05/2024 Body mass index (BMI) of 24.0 to 24.9 in adult (ICD-10 - Z68.24) 06/26/2024 Sick sinus syndrome (ICD-10 - I49.5) Holter Monitor Report from 03/10/14 shows no SR and Ahrytimias. Carotid Artery Test from 03/24/14 Shows occluded R internal carotid aretery Patient is stable. Holter Monitor Report from 03/10/14 shows no SR and Ahrytimias. Carotid Artery Test from 03/24/14 Shows occluded R internal carotid aretery 06/26/2024 Malignant neoplasm of unspecified site of left female breast (ICD-10 - C50.912) Patient is stable. WAS BEING SEEN BY THE ONCOLOGIST. 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 06/26/2024 Nephrolithiasis (ICD-10 - N20.0) Patient is stable. 01/17/2024 Encounter for screening examination for mental health and behavioral disorders, unspecified (ICD-10 - Z13.30) 01/14/2024 Influenza vaccination administered at current visit (ICD-10 - Z23) 10/14/2023 PHT (pulmonary hypertension) (ICD-10 - I27.20) with right ventricular systolic pressure of 41.1 mmHg. Showed on Echo test done on 09-12-20 10/14/2023 Hypertensive nephropathy (ICD-10 - I12.9) 01/14/2024 Patient risk and functional assessment (ICD-10 - Z13.89) 01/17/2024 Medication management (ICD-10 - Z79.899) 06/26/2024 GERD (gastroesophageal reflux disease) (ICD-10 - K21.9) bia-GERD (gastroesophage al reflux disease) Patient is stable. Continue with medication. 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 01/14/2024 Other EVALUATION AND THE MANAGEMENT APPLIED HEREIN ARE BASED ON MEDICAL DECISION-MAKING WITH FULL CONSIDERATION OF THE MULTIPLE COMPLEX CHRONIC MEDICAL CONDITIONS WITH REVIEW AND ANALYSIS OF TEST RESULTS AND DATA WITH LONG DISCUSSION ON POTENTIAL MEDICAL COMPLICATIONS AND MORBIDITY AND POSSIBLE MORTALITY. 04/20/2024 Other 06/05/2024 Other EVALUATION AND THE MANAGEMENT APPLIED HEREIN ARE BASED ON MEDICAL DECISION-MAKING WITH FULL CONSIDERATION OF THE MULTIPLE COMPLEX CHRONIC MEDICAL CONDITIONS WITH REVIEW AND ANALYSIS OF TEST RESULTS AND DATA WITH LONG DISCUSSION ON POTENTIAL MEDICAL COMPLICATIONS AND MORBIDITY AND POSSIBLE MORTALITY. Plan Of Treatment Pending Test Test Name Order Date X ray : Spines, lumbar 02/02/2019 X ray : Hip, left 02/18/2020 X ray : Hip, right 02/02/2019 X ray : Hip, right 02/29/2020 X ray : Shoulder, right 07/29/2018 DEXA 04/18/2017 DEXA 05/24/2020 DEXA 01/14/2024 Carotid Ultrasound 03/12/2019 TSH+Free T4 04/18/2017 Lipid Panel 04/18/2017 Comp. Metabolic Panel (14) 04/18/2017 X ray : Chest (PA lateral) 02/20/2024 CBC w/ Diff 12/24/2019 CBC w/ Diff 05/19/2020 Comprehensive Metabolic Panel 12/15/2020 Comprehensive Metabolic Panel 01/31/2021 Comprehensive Metabolic Panel 02/18/2020 Comprehensive Metabolic Panel 08/25/2020 Comprehensive Metabolic Panel 05/19/2020 Hemoglobin A1c (Glycosylated) 12/24/2019 ECHO 08/25/2020 ECHO 01/31/2021 AAA (Abdominal Aortic Aneurysm) UltraSou nd 02/12/2019 Arterial Doppler Lower Extremity Bilater al 02/12/2019 Mammogram with Add Views & Breast US if needed 07/25/2017 Thyroid Panel With TSH 10/14/2017 Thyroid Panel With TSH 01/22/2018 Vitamin B12 and Folate 01/22/2018 Hemoglobin A1c 07/05/2023 Vitamin B12 10/14/2017 Vitamin B12 12/19/2018 Magnesium, Serum 12/19/2018 Vitamin D, 25-Hydroxy 10/13/2018 Vitamin D, 25-Hydroxy 04/30/2018 Vitamin D, 25-Hydroxy 12/21/2021 Vitamin D, 25-Hydroxy 04/10/2019 Vitamin D, 25-Hydroxy 01/14/2024 Lipid Panel 01/14/2024 Lipid Panel 08/01/2023 Lipid Panel 10/14/2023 Lipid Panel 06/05/2024 Lipid Panel 04/04/2023 Lipid Panel 07/05/2023 Lipid Panel 03/26/2022 Lipid Panel 06/27/2022 Lipid Panel 09/28/2022 Lipid Panel 01/03/2023 Lipid Panel 07/09/2019 Lipid Panel 09/20/2021 Lipid Panel 12/21/2021 Lipid Panel 05/12/2021 Lipid Panel 04/30/2018 Lipid Panel 10/14/2017 Lipid Panel 01/22/2018 Lipid Panel 07/29/2018 Lipid Panel 10/13/2018 Lipid Panel 04/10/2019 Comp. Metabolic Panel (14) 07/09/2019 Comp. Metabolic Panel (14) 04/10/2019 Comp. Metabolic Panel (14) 10/13/2018 Comp. Metabolic Panel (14) 10/14/2017 Comp. Metabolic Panel (14) 07/29/2018 Comp. Metabolic Panel (14) 04/30/2018 Comp. Metabolic Panel (14) 01/22/2018 Comp. Metabolic Panel (14) 08/21/2021 Comp. Metabolic Panel (14) 09/20/2021 Comp. Metabolic Panel (14) 05/12/2021 Comp. Metabolic Panel (14) 03/26/2022 Comp. Metabolic Panel (14) 12/21/2021 Comp. Metabolic Panel (14) 04/04/2023 Comp. Metabolic Panel (14) 09/28/2022 Comp. Metabolic Panel (14) 06/27/2022 Comp. Metabolic Panel (14) 08/01/2023 Comp. Metabolic Panel (14) 01/03/2023 Comp. Metabolic Panel (14) 07/05/2023 Comp. Metabolic Panel (14) 06/05/2024 Comp. Metabolic Panel (14) 01/14/2024 Comp. Metabolic Panel (14) 10/14/2023 Basic Metabolic Panel (8) 07/25/2023 Basic Metabolic Panel (8) 08/11/2021 Free Thyroxine + T4 10/14/2017 Mammogram: Ultrasound/additional mammo v iews if needed 01/14/2024 TSH+Free T4 01/03/2023 TSH+Free T4 12/21/2021 Vitamin D, 1,25 + 25-Hydroxy 01/22/2018 CBC w/diff 12/21/2021 CBC w/diff 07/25/2023 Lipid Panel 01/31/2021 Lipid Panel 12/24/2019 Lipid Panel 02/18/2020 Lipid Panel 05/19/2020 Lipid Panel 12/15/2020 Lipid Panel 08/25/2020 Vitamin D, 25-Hydroxy 02/18/2020 Vitamin D, 25-Hydroxy 12/24/2019 Insurance Providers Payer Name Payer Address Payer Phone Subscriber Number Group Number Insured Name Patient Relationship to Insured Coverage Start Date Coverage End Date [facility] [address] [place] [address] [id number] Cary Schneider Self - patient is the insured 4 Medications Administered Medication Instructions Date of Administration Dosage Notes Vitamin B12 10/15/2017 1 mL Vitamin B12 12/19/2018 1 mL Medical (General) History Medical History History ICD Code Pacemaker, ; ,Pneumonia, ; ,Cancer, ; ,H eart Murmur, ; ,Hypercholesterolemia Restless leg syndrome (333.94) Travel advice encounter (V65.49) Hypertension VACCINE AGAINST INFLUENZA (V04.81) HTN (hypertension) Hypothyroidism, adult Hypertensive nephropathy I12.9 Surgical History Surgery Date(Month/Year) Appendectomy, Cardiac Pacemaker- [employer] Hospitalization History Reason Date(Month/Year) Acute kidney failure
--- OUTSIDE RECORDS SUMMARY | 2024-10-13 15:12 | XMS_ITS | Patient Health Record ---
Author Organization [facility] Address [address] [place], [place] [id number] Care Team Providers Care Beam House Inspector Name Role Phone Romulo Hernandez MD Primary Care Provider Flavio ACOSTA, Unavailable [phone] Allergies No Known Allergies Reason For Referral No Information Medications Medication SIG (Take, Route, Frequency, Duration) Notes Start Date End Date Status PreserVision AREDS 2 - as directed Orally Active Vitamin D3 1.25 MG (39057 UT) 1 capsule Orally Active Lisinopril 20 MG 1 tablet Orally Once a day Active rOPINIRole HCl 2 MG 2 tablet 1 to 3 hour s before bedtime Orally Once a day Active Omeprazole 40 MG 1 capsule 30 minutes before morning meal Orally Once a day Active Rosuvastatin Calcium 20 MG 1 tablet Oral ly Once a day Active Vitamin B12 3000 MCG as directed Sublingual Active Centrum Silver 50+Women - as directed Orally Active Social History Alcohol Screen (Audit-C) Question Answer Notes Did you have a drink contain ing alcohol in the past year? Yes How often did you have a dri nk containing alcohol in the past year? Never (0 point) How many drinks did you have on a typical day when you were drinking in the past year? 1 or 2 drinks (0 point) How often did you have 6 or more drinks on one occasion in the past year? Never (0 point) Points 0 Interpretation Negative Smoking Question Answer Notes Additional Findings: Tobacco Non-User Ex-cigaret te smoker Problems Problem Type SNOMED Code ICD Code Onset Dates Problem Status W/U Status Risk Notes Problem 933443033 Cardiorenal syndrome with renal failure, stage 1-4 or unspecified chronic kidney disease, without heart failure (I13.10) Active confirmed Problem 604902105 Stage 3a chronic kidney disease (N18.31) Active confirmed Problem 73045977 Nephrolithiasis (N20.0) Active confirmed Plan Of Treatment Future Test Test Name Order Date Ultrasound : Kidneys 08/05/2020 CMP (Comprehensive Metabolic panel) 12/2020 Urinalysis, Random w/Reflex to C & S 12/2020 CBC With Differential/Platelet 1 PTH, Intact 10/05/2020 Lipid Panel 10/05/2020 Uric Acid, Serum 11/04/2020 Creatinine Clearance 11/04/2020 CMP (Comprehensive Metabolic panel) 10/28 Hemoglobin A1c 11/20/2020 Urinalysis, Random w/Reflex to C & S CBC With Differential/Platelet 1 PTH, Intact 11/20/2020 Lipid Panel 11/20/2020 Insurance Providers Payer Name Payer Address Payer Phone Subscriber Number Group Number Insured Name Patient Relationship to Insured Coverage Start Date Coverage End Date [facility] [address] [address] [place] [address] [id number] CHET PIMENTEL Self - patient is the insured Medical (General) History Medical History History ICD Code Pacemaker/ defibrillator Breast cancer Surgical History Surgery Date(Month/Year) Pacemaker placement 2018 Radiation and lumpectomy 2018
--- OUTSIDE RECORDS SUMMARY | 2024-10-13 15:12 | XMS_ITS ---
Author Organization [facility] Address [address] [place] [address] Care Team Providers Care Floorleader Name Role Phone Mary KHAN M.D, Romulo Primary Care Provider Unavail able Nataliia Brand Unavailable Unavailable Vanna Morel Unavailable [phone] Allergies No Known Allergies REASON FOR VISIT Follow up with EGD/colonoscopy Medications Medication SIG (Take, Route, Fr equency, [...] week (4 points) Points 4 Interpretation Positive Vital Signs Blood pressure systolic 148 mm Hg 06/05/19 24 Blood pressure diastolic 71 mm Hg 024 Heart Rate 86 /min 06/05/2023 Respiratory Rate 18 /min 06/05/2023 Height 66 in 06/05/2023 Weight 155 lbs 06/05/2023 BMI 25.01 kg/m2 06/05/2023 Encounters Encounter Location Date Provider Diagnosis [facility] [address] [place] [address] 06/05/2023 Vanna Morel Nausea with vomiting , unspecified R11.2 ; Dysphagia R13.10 ; Personal history of colonic polyps Z86.010 and Diverticulosis of large intestine without perforation or abscess without bleeding K57.30 Assessments Encounter Date Diagnosis (ICD Code) Assessment Notes Treatment Notes Treatment Clinical Notes Section Notes 06/05/2023 Nausea with vomiting, unspecified (ICD-10 - R11.2) Resolved. Continue to observe. 06/05/2023 Dysphagia (ICD9-CM - R13.10) Resolved. status post esophageal stricture dilation to 16mm. 06/05/2023 Personal history of colonic polyps (ICD-10 - Z86.010) No further colonoscopy suggested due to advanced age. 06/05/2023 Diverticulosis of large intestine without perforation or abscess without bleeding (ICD-10 - K57.30) High fiber diet. Benefiber daily. Decrease in meat/fat intake. Plan Of Treatment Treatment Notes Assessment Notes Nausea with vomiting, unspecified Resolv ed. Continue to observe. Dysphagia Resolved. status pos t esophageal stricture dilation to 16mm. Personal history of colonic polyps No fu rther colonoscopy suggested due to advanced age. Diverticulosis of large inte trang without perforation or abscess without bleeding High fiber diet. Benefiber daily. Decrease in meat/fat intake. Next Appt Details Follow Up: prn, Reason: Progress Notes * MARGARITOCHETDOB: 8 (84 yo F)Acc No.[id number]:06/05/2023 Progress Notes Patient: CHET BROWN Provider: Marcus Morel DO :1940 A ge:83 Y S ex:Female Date:06/05/2023 Address:[address] [place] [address] Pcp:Romulo Hernandez MD, M.D Subjective: * Chief Complaints: * 1 . Follow up with EGD/colonoscopy. * HPI: H istory: The patient is seen and examined. She underwent EGD/colonoscopy recently and denied any complications after the procedures. Discussed findings on EGD/colonoscopy and pathology results. The patient is doing well overall and denied abdominal pain, nausea, vomiting, blood in stools, or weight loss. * ROS: C ustom Category: General/constitutional d enies, m alaise, fatigue, weight loss, weight gain, night sweat, decrease appetite, fever, lightheadedness. S kin d enies,?rash, itching, bruising, swelling, nail chnages, skin lesions. E NT d enies, s ore throat, hoarseness, sinus drainage, lump, post nasal drip, raspy voice, dry mouth, mouth breathing at night. C ardiac d enies, C hest pain, Palpitation, Rapid HR. R espiratory d enies, S hort of Breath, Cough, PleuriticCP, Wheezing. G U d enies, D ysuria, Hematuria, Frequency, Urinary incontinence. M uscSquel d enies, M yalgias, Arthralgias. N euro d enies, H eadache, Paresthesia, Syncope, Aphasia. G I P er HPI. O phthalmology d enies, b lurred vision, dry eyes, yellow eyes. H ematology d enies, b eing anemic, bleeding problems. * Medical History: M elanoma, Hypertension, Pacemaker, AF, Hyperlipidemia. * Surgical History: m elanoma cancer , cardiac pacemeker , EGD 07/2022, COLONOSCOPY 07/2022. * Hospitalization/Major Diagno stic Procedure: D enies Past Hospitalization. * Family History: F ather: . M other: , diagnosed with Other malignant neoplasm of unspecified site. * Social History: T obacco Use: T obacco Use/Smoking A re you a n onsmoker, A dditional Findings: Tobacco Non-User?Current non-smoker. D rugs/Alcohol: A lcohol Screen (Audit-C) D id you have a drink containing alcohol in the past year? Y es, H ow often did you have a drink containing alcohol in the past year? 4 or more times a week (4 points), P oints 4 , I nterpretation P ositive. * Medications: T aking Rosuvastatin Calcium , Taking rOPINIRole HCl , Taking Lisinopril , Medication List reviewed and reconciled with the patient * Allergies: N .K.D.A. Objective: * Vitals: H R:86/min, BP:148/71mm Hg, Ht: 66 in, Wt:155lbs, BMI:25.01Index, RR:18/min, Ht- cm: 167.64, Wt-k.31. * Examination: G eneral Examination: GENERAL APPEARANCE: A AO X 3. NAD. Pleasant. . HEAD: n ormocephalic, atraumatic. EYES: p upils equal, round, reactive to light and accommodation, sclera anicteric. ORAL CAVITY: m ucosa moist, no lesions. NECK/THYROID: n humble supple, full range of motion, no cervical lymphadenopathy, no mass felt. SKIN: n o rashes, no suspicious lesions, warm and dry. Good skin turgor. No jaundice. . HEART: n o murmurs/rugurge/gallops, regular rate and rhythm, S1, S2 normal. No S3/S4.. LUNGS: c lear to auscultation bilaterally. No wheezes, rhonchi, crackles. . ABDOMEN: n ormal, bowel sounds present, no ascites, no organomegaly , soft, nontender, nondistended. No rebound/guarding. . RECTAL d eferred, not examined. EXTREMITIES: n o clubbing, cyanosis, or edema. No Navneet's sign.. PSYCH: a lert, oriented, good eye contact. Assessment: * Assessment: 1. D ysphagia - R13.10 2 . N ausea with vomiting, unspecified - R11.2 (Primary) 3 . P ersonal history of colonic polyps - Z86.010 4 . D iverticulosis of large intestine without perforation or abscess without bleeding - K57.30 ? Plan: * Treatment: 2. D ysphagia Notes: Resolved. status post esophageal stricture dilation to 16mm. 3. P ersonal history of colonic polyps Notes: No further colonoscopy suggested due to advanced age. 4. D iverticulosis of large intestine without perforation or abscess without bleeding Notes: High fiber diet. Benefiber daily. Decrease in meat/fat intake. * Follow Up: p rn * Billing Information: * Visit Code: 39360 Office Visit, Est Pt., Level 3. * Procedure Codes: * Electronic signature of Vanna Morel DO on 10/13/2024 at 04:12 PM EDT Sign off status: Pending * Provider: Marcus Morel DO Date: 06/05/2023 Generated for Alona rosa/Angela/Paulieitting on: 0 10/13/2024 04:12 PM EDT History and Physical Notes * HPI (History of Present Illness) Category Sub-Category Detail Notes Category Not es History The patient is seen and examined. She underwent EGD/colonoscopy recently and denied any complications after the procedures. Discussed findings on EGD/colonoscopy and pathology results. The patient is doing well overall and denied abdominal pain, nausea, vomiting, blood in stools, or weight loss. Examination Category Sub-Category Detail Notes Category Not es General Examination GENERAL APPEARANCE: AAO X 3. NAD. Pleasant. HEAD: normocephalic, atrau matic EYES: pupils equal, round, reactive to light and accommodation, sclera anicteric NECK/THYROID: neck supple, full ra nge of motion, no cervical lymphadenopathy, no mass felt HEART: no murmurs/rugurge/g allops, regular rate and rhythm, S1, S2 normal. No S3/S4. LUNGS: clear to auscultatio n bilaterally. No wheezes, rhonchi, crackles. ABDOMEN: normal, bowel sounds present, no ascites, no organomegaly , soft, nontender, nondistended. No rebound/guarding. SKIN: no rashes, no suspic ious lesions, warm and dry. Good skin turgor. No jaundice. EXTREMITIES: no clubbing, cyanosi s, or edema. No Navneet's sign. RECTAL deferred, not examin ed PSYCH: alert, oriented, goo d eye contact ORAL CAVITY: mucosa moist, no les ions
--- OUTSIDE RECORDS SUMMARY | 2024-10-13 15:12 | XMS_ITS | Patient Health Record ---
Author Organization [facility] Address [address] [place] [address] Support Name Relationship Address Phone Cary Schneider Guarantor Unknown [phone] Allergies No Known Allergies Reason For Referral No Information Medications Medication SIG (Take, Route, Frequency, Duration) Notes Start Date End Date Status Baclofen 5 MG 1 tablet Orally Three times a day for 30 days For Spasms Active Lidocaine 5 % 1 patch remove after 12 hours Externally Once a day for 30 days Non Acute Pain Active oxyCODONE-Acetaminophe n 5-325 MG 1 tablet as needed Orally every 4 hrs for 30 days Non Acute Pain Active Omeprazole 20 MG 2 capsules Orally Once a day for 30 day(s) GERD Active Aspirin 81 MG 1 capsule Orally Once a day for 30 day(s) Active Rosuvastatin Calcium 20 MG 1 tablet Orally Once a day for 30 day(s) Active Lisinopril 20 MG 1 tablet Orally Once a day for 30 days Active rOPINIRole HCl 2 MG 1 tablet Orally Once a day for 30 day(s) Restless Leg Syndrome Active Problems Problem Type SNOMED Code ICD Code Onset Dates Problem Status W/U Status Risk Notes Problem Chronic anemia (106596799) Anemia in other chronic diseases classified elsewhere (D63.8) Active confirmed Problem Hyperlipidemia (67921547) Hyperlipidemia, unspecified (E78.5) Active confirmed Problem Restless legs syndrome (32523725) Restless legs syndrome (G25.81) Active confirmed Problem Essential hypertension (84721308) Essential (primary) hypertension (I10) Active confirmed Problem Gastro-esophageal reflux disease without esophagitis (776297512) Gastro-esophagea l reflux disease without esophagitis (K21.9) Active confirmed Problem Abnormal gait (36150767) Unspecified abnormalities of gait and mobility (R26.9) Active confirmed Problem Recurrent falls (523929197) Repeated falls (R29.6) Active confirmed Problem Fracture of neck of femur (9583604) Fracture of unspecified part of neck of right femur, subsequent encounter for closed fracture with routine healing (S72.001D) Active confirmed Problem Cardiac pacemaker in situ (974523482) Presence of cardiac pacemaker (Z95.0) Active confirmed Problem COVID-19 (501893202) COVID-19 (U07.1) Active confirmed Plan Of Treatment No Information Insurance Providers Payer Name Payer Address Payer Phone Subscriber Number Group Number Insured Name Patient Relationship to Insured Coverage Start Date Coverage End Date [facility] [address] [address] [place] [address] [id number] Cary Schneider Self - patient is the insured Medical (General) History Medical History History ICD Code Fracture of unspecified part of neck of right femur, subsequent encounter for closed fracture with routine healing S72.001D Essential (primary) hypertension I10 Restless legs syndrome G25.81 Hyperlipidemia, unspecified E78.5 Presence of cardiac pacemaker Z95.0 Gastro-esophageal reflux disease without esophagitis K21.9 Unspecified abnormalities of gait and mo bility R26.9 Repeated falls R29.6 Surgical History Surgery Date(Month/Year) Pacemaker Hospitalization History Reason Date(Month/Year) As per HPI
--- OUTSIDE RECORDS SUMMARY | 2024-10-13 15:12 | XMS_ITS ---
Author Organization [facility] [address] Address [address] [place] [address] Care Team Providers Care Call Center Representative Name Role Phone Romulo Hernandez M.D Primary Care Provider ANDRY Stephens Unavailable [phone] REASON FOR VISIT CARELINK (PACEMAKER) 3MTH F/U FROM HOME Encounters Encounter Location Date Provider Diagnosis [facility] [place] [address] [facility] [address] [place] [address] 06/19/2024 ANDRY HEART Plan Of Treatment No Information Progress Notes * Cary PIMENTEL ADOB: [birth year] (84 yo F)Acc No.[id number]:06/19/2024 Patient: Cary BROWN Jason Provider: Pablo HEART MD :1940 A ge:84 Y S ex:Female Date:06/19/2024 Address:[address] [facility] Pcp:Romulo Hernandez M.D Subjective: * Chief Complaints: * 1 . CARELINK (PACEMAKER) 3MTH F/U FROM HOME. * Medical History: Objective: * Vitals: Assessment: Plan: * Treatment: * * Electronic signature of ASHA HEART MD,[facility] on 10/13/2024 at 04:11 PM EDT Sign off status: Pending * Provider: Pablo HEART MD Date: 0 06/19/2024 Generated for Printi ng/Faxing/eTransmitting on: 0 10/13/2024 04:11 PM EDT
--- OUTSIDE RECORDS SUMMARY | 2024-10-13 15:12 | XMS_ITS | Patient Health Record ---
Author Organization [facility], [place] - [address] Address [address] [place] [address] Care Team Providers Care Label Remover Name Role Phone Romulo Hernandez M.D Primary Care Provider UnavailANDRY Prieto Unavailable [phone] ATTDAREKYOANAJOSE Unavailable [phone] Allergies No Known Allergies Results Component Value Reference Range Notes CAROTID ULTRASOUND Reviewed date:06/06/2024 10:05:10 AM Interpretation: Performing Lab: Notes/Report: Tobacco Screening and Cessas izzy Reviewed date:04/15/2024 05:28:37 PM Interpretation:undefined Performing Lab: Notes/Report: undefined Fall Risk Assessment Reviewed date:04/15/2024 05:28:39 PM Interpretation:undefined Performing Lab: Notes/Report: undefined BP Check Reviewed date:04/15/2024 05:28:42 PM Interpretation:undefined Performing Lab: Notes/Report: undefined BMI Counselling Reviewed date:04/15/2024 05:28:45 PM Interpretation:undefined Performing Lab: Notes/Report: undefined Bilateral Carotid Ultrasound Reviewed date:04/15/2024 03:48:20 PM Interpretation: Performing Lab: Notes/Report: CMP Reviewed date:03/25/2024 06:47:26 AM Interpretation: Performing Lab: Notes/Report: CBC Reviewed date:03/25/2024 06:47:17 AM Interpretation: Performing Lab: Notes/Report: WBC 6.3 3.4-10.8 10E3/uL RBC 3.34 4.10-5.10 10E6/uL HGB 10.8 12.0-16.0 g/dL HCT 31.9 37.0-46.0 % MCV 95 84.0-98.0 fL MCH 32.3 26.6-33.0 pg MCHC 33.8 31.5-35.7 g/dL RDW 13 12.0-15.0 % PLATELET COUNT 135 130-400 10E3/uL MPV 7.6 6.4-13.1 fL GRANULOCYTES 71.3 52.0-75.0 % LYMPHOCYTES 21.4 13.0-40.0 % MONOCYTES 7.3 4.0-11.0 % ABSOLUTE GRANULCYTES 4.6 0.1-8.4 10E3/uL ABSOLUTE LYMPHOCYTES 1.3 0.5-2.7 10E3/uL ABSOULTE MONOCYTES 0.4 0.2-1.0 10E3/uL Echocardiogram Reviewed date:03/12/2024 03:29:44 PM Interpretation: Performing Lab: Notes/Report: Reason For Referral Reason NR-limited echo Diagnosis 1 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 Portal the member has HMO plan and active coverage from 04/29/2023. Auth initiated in [facility] portal for cpt codes 96325 shows authorization is not required with Decision ID #: [id number] Referral Priority Routine Referral Appointment Date 03/10/2024 Reason A- LHC/OSC/DR. BELIA SOMMER Diagnosis 1 Acquired stenosis of aortic valve (I35.0) Referral Organization [facility] Referring Provider First Name ANDRY Referring Provider Last Name OTILIO Referring Provider Speciality Cardiology Referred Provider Specialty PCP General Notes Lizeth Cantu 2023 03:08:07 PM >[facility] AUTH #[id number] APPROVED FOR LHC/PCI WITH DR HERMAN FROM 03/10/24 TO 04/24/24 Referral Priority Routine Reason YANELY carotid us Diagnosis 1 Carotid stenosis, bi lateral (I65.23) Referral Organization [facility] Referring Provider First Name JOSE Referring Provider Last Name BATSHEVA Referring Provider Speciality Cardiology Referred Provider Specialty PCP General Notes Marie Stover 06/01/2023 10:54:23 AM >[place] [id number] Decision ID #: [id number] Referral Priority Stat Referral Appointment Date 04/07/2024 Reason NR-pacer ck Diagnosis 1 Syncope and collapse (R55) Referral Organization [facility] Referring Provider First Name [facility] Referring Provider Last Name [facility] Referring Provider Speciality Cardiology Referred Provider Specialty Cardiology General Notes Jose Hunt 03:42:39 PM >As per [facility] ,Pt has active Coverage from 04/29/2024 ,has a PPO Plan, Auth Initiated in [facility] for CPT 10904 ,94543 ,87544 ,20249 ,65346 ,50933 Shows that No Auth is REquired under Decision ID #: [id number]. Referral Priority Routine Referral Appointment Date 06/19/2024 Reason A tavr consult with dr. perez Diagnosis 1 SEVERE AORTIC STENOS IS (I35.0) Referral Organization [facility] Referring Provider First Name ANDRY Referring Provider Last Name SLY Referring Provider Speciality Cardiology Referred Provider yCnthia Perez Referred Provider Specialty Cardiac Surg rohan General Notes Marie Stover 1 05/20/2023 12:12:10 PM >[employer] VERIFIED ACTIVE, AUTH PENDING PCPCk Brandy 03/23/2024 03:42:09 PM >PATIENT NEEDS TO SEE PCP FIRST, THEY WILL SEND ONCE DONE, Marie Stover 03/31/2024 09:44:12 AM >PATIENT HAS APPT WITH PCP 04/16Ck Brandy 04/16/2024 07:59:18 AM >REFAXED TO PCP, Marie Stover 04/23/2024 10:26:18 AM >2ND REQUEST SENT, Marie Stover 2024 10:32:52 AM >RESENT 2ND REQUEST, Marie Stover 05/04/2024 09:54:23 AM >AUTH APPROVED [id number], 04/30-10/27/24 Referral Priority Routine Medications Medication SIG (Take, Route, Frequency, Duration) Notes Start Date End Date Status Metoprolol Succinate ER 25 MG Oral for 100 Days Active Omeprazole 40 MG 1 capsule Orally Onc e a day Active rOPINIRole HCl 2 MG 1 tablet Orally Once a day Active Multi-Day Tablet 1 by mouth daily 05/31/2008 Active PreserVision AREDS 2 - as directed Orally Active Vitamin D3 2000 UNIT 1 capsule Orally On ce a day for 30 day(s) Active Gabapentin 300 MG 1 capsule Orally TWI CE A DAY for 100 days Active Aspirin 81 MG 1 by mouth daily Ora lly Once a day 11/22/2015 Active Rosuvastatin Calcium 20 MG 1 tablet Oral ly Once a day for 30 day(s) Active Social History Tobacco Use: Social History Observation Description Date Details (start date - stop date) Never Smoker NA - NA Tobacco use other than smoking: Question Answer Notes Are you an other tobacco user? No AUDIT-C (Standard) Question Answer Notes Did you have a drink containing alcohol in the p ast year? 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 (837569552910387) 2-vessel coronary artery disease (I25.10) Active confirmed Problem Aortic valve disorde r (4219700) Acquired stenosis of aortic valve (I35.0) Active confirmed Problem 462836078 Carotid stenosis , bilateral (I65.23) Active confirmed Problem Hyperlipoproteinemia (5874974) Acquired hyperlipoproteinemia (E78.5) Active confirmed Problem 223174568 SEVERE AORTIC STENOSIS (I35.0) Active confirmed Problem Hyperlipidemia (66134862) Hyperlipidemia, unspecified (E78.5) 2015 Active confirmed Asaf-447 667- Problem 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 (758197722385872) Atherosclerotic heart disease of little shell tribe coronary artery without angina pectoris (I25.10) 2015 Active confirmed Asaf-447 667- Problem Bradycardia (68695338) Bradycardia, unspecified (R00.1) 2015 Active confirmed Asaf-447 667-Sym ptomati c Problem Syncope and collapse (361646411) Syncope and collapse (R55) 2015 Active confirmed Asaf-447 667- Problem Cardiac pacemaker in situ (773951969) Presence of cardiac pacemaker (Z95.0) 2015 Active confirmed [facility]-447 667-Med tronic Dual Chamber - Advisa DR DuncanDR01 (MRI SAFE) S# [id number] [facility] 10-22-14 , has 5076 Leads. Vital Signs Heart Rate 81 /min 04/15/2024 Blood pressure diastolic 78 mm Hg 04/15/2024 Oximetry 98 % 04/15/2024 Height 66 in 04/15/2024 Blood pressure systolic 182 mm Hg 04/15/2024 Weight 156 lbs 04/15/2024 BMI 25.18 kg/m2 04/15/2024 Procedures Procedure Date Ordered Date Performed Result Body Sit e TAVR 04/15/2024 N/A LEFT HEART CATH POSS PCI 03/10/2024 N/A AORTIC VALVULOPLASTY 03/10/2024 N/A Encounters Encounter Location Date Provider Diagnosis [facility] - [address] [place] [address] 12/20/2023 ANDRY MIRYALA [facility] [address] [place] [address] 03/18/2024 JOSE ATTANTI [facility] - [address] [place] [address] 03/20/2024 ANDRY MIRYALA [facility] [address] [place] [address] 05/08/2024 JOSE ATTANTI [facility] - [address] [place] [address] 06/19/2024 ANDRY MIRYALA [facility] - [address] [place] [address] 09/18/2024 ANDRY MIRYALA [facility] - [address] [place] [address] 11/14/2023 ANDRY MIRYALA Arrhythmia, vagal R5 5 ; Accelerated essential hypertension I10 ; Acute kidney failure N17.9 ; Acquired stenosis of aortic valve I35.0 ; Acquired hyperlipoproteinemia E78.5 and Fall, subsequent encounter W19.XXXD [facility] - [place] [place] [address] 03/10/2024 ANDRY MIRYALA [facility] [place] [address] [facility] [address] [place] [address] 03/10/2024 ANDRY MIRYALA Accelerated essentia l hypertension I10 ; Acquired stenosis of aortic valve I35.0 ; Acquired hyperlipoproteinemia E78.5 ; SEVERE AORTIC STENOSIS I35.0 and Atherosclerotic heart disease of little shell tribe coronary artery without angina pectoris I25.10 [facility] [place] [place] [address] 03/13/2024 ANDRY MIRYALA Accelerated essentia l hypertension I10 [facility] [place] [place] [address] 04/07/2024 JOSE ATTANTI [facility] [place] [facility] [address] 04/15/2024 JOSE ATTANTI SEVERE AORTIC STENOSIS I35.0 ; Carotid stenosis, bilateral I65.23 ; Presence of cardiac pacemaker Z95.0 ; Atherosclerotic heart disease of little shell tribe coronary artery without angina pectoris I25.10 and Hyperlipidemia, unspecified E78.5 [facility] [place] [address] [facility] [address] [place] [address] 04/07/2024 ANDRY MIRYALA [facility] [place] [facility] [address] 03/10/2024 ANDRY MIRYALA [facility] - [place] [facility] [address] 03/10/2024 ANDRY MIRYALA Encounter for other specified surgical aftercare Z48.89 [facility] [place] [address] [facility] [address] [place] [address] 03/12/2024 ANDRY MIRYALA Accelerated essentia l hypertension I10 and SEVERE AORTIC STENOSIS I35.0 [facility] [place] [place] [address] 03/13/2024 ANDRY MIRYALA [facility] [place] [place] [address] 03/18/2024 ANDRY MIRYALA [facility] [place] [place] [address] 03/20/2024 ANDRY MIRYALA [facility] [place] [address] [facility] [address] 03/24/2024 ANDRY MIRYALA [facility] [place] [address] [facility] [address] [facility] [address] 03/31/2024 JOSE ATTANTI Carotid stenosis, bilateral I65.23 [facility] - [address] [place] [address] 05/04/2024 ANDYR MIRYALA [facility] [place] [address] [facility] [address] 06/03/2024 ANDRY MIRYALA [facility] [place] [address] [facility] [address] [facility] [address] 08/20/2024 ANDRY MIRYALA Assessments Encounter Date Diagnosis (ICD Code) Assessment Notes Treatment Notes Treatment Clinical Notes Section Notes 11/14/2023 Arrhythmia, vagal (ICD-10 - R55) 03/10/2024 Accelerated essentia l hypertension (ICD-10 - I10) High Blood Pressure: Care Instructions material was printed Severe CKD 03/13/2024 Accelerated essentia l hypertension (ICD-10 - I10) 04/15/2024 SEVERE AORTIC STENOS IS (ICD-10 - I35.0) 03/10/2024 Encounter for other specified surgical aftercare (ICD-10 - Z48.89) 03/12/2024 Accelerated essentia l hypertension (ICD-10 - I10) 03/31/2024 Carotid stenosis, bilateral (ICD-10 - I65.23) 04/15/2024 Carotid stenosis, bilateral (ICD-10 - I65.23) 03/12/2024 SEVERE AORTIC STENOS IS (ICD-10 - I35.0) 03/10/2024 Acquired stenosis of aortic valve (ICD-10 - I35.0) Severe CKD 11/14/2023 Accelerated essentia l hypertension (ICD-10 - I10) 11/14/2023 Acute kidney failure (ICD-10 - N17.9) 03/10/2024 Acquired hyperlipoproteinemia (ICD-10 - E78.5) Severe CKD 04/15/2024 Presence of cardiac pacemaker (ICD-10 - Z95.0) 04/15/2024 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 Pleasant female patient with evidence of urinary tract infection with metabolic encephalopathy s/p syncope 2. Peak troponin elevation of 168 now no symptoms of angina 3. Moderate aortic stenosis by echo, physical examination. 4. No symptoms of angina/congestive heart failure/dyspnea. Will closely monitor this valve. Will do limited echo to assess aortic valve gradients in February. Follow-up after. Patient had a prior pacemaker functioning well. Pacemaker evaluation from September 11 indicates 2 years 1 month of battery life left. She has no evidence of atrial arrhythmias. Education regarding the different Diagnosis performed in details with patient. Patient agrees with assessment and plan as above.-advised decreasing caffeine intake or any stimulant/alcohol beverages.-advised on healthy diet and increase exercise and daily activities. Patient 's questions answered to satisfaction with understanding and agreement expressed. 03/10/2024 Other 1. Pleasant female patient with progressive aortic valve stenosis/severe stenosis With symptoms of shortness of breath with minimal activities, class III symptoms. 2. Hypercholesterolemi a 3. Hypertension 4. Prior history of metabolic encephalopathy due to urinary tract infection. 5. Prior pacemaker functioning well. Minimally atrial paced. Due to severe aortic stenosis with high intensity murmu, we will arrange for cardiac catheterization in anticipation of revascularization followed by transcatheter aortic valve replacement. Will schedule cardiac catheterization with After that patient will follow transcatheter aortic valve replacement protocol and will be scheduled for TAVR. Plan of care reviewed with the patient. Education regarding the different Diagnosis performed in details with patient. Patient agrees with assessment and plan as above.-advised decreasing caffeine intake or any stimulant/alcohol beverages.-advised on healthy diet and increase exercise and daily activities. Patient 's questions answered to satisfaction with understanding and agreement expressed. Severe CKD 04/15/2024 Other Severe aortic stenosis: scheduled for TAVR, has had CT surgeon consult, has had CT TAVR and [facility] which were all reviewed. Will follow-up post TAVR. Carotid stenosis: Carotid ultrasound reviewed showed moderate stenosis right ICA. Continue on aspirin. Hypertension: Continue current management and continue to monitor elevated today. CAD: [facility] reviewed continue to follow-up with primary computer operations supervisor. Thank you so much for including us in her plan of care. Plan Of Treatment Pending Test Test Name Order Date Basic Metabolic Panel (8) 03/10/2024 AORTIC VALVULOPLASTY 03/10/2024 LEFT HEART CATH POSS PCI 03/10/2024 CBC With Differential/Platelet Comp. Metabolic Panel (14) 03/12/2024 TAVR 04/15/2024 EKG 03/11/2019 Future Test Test Name Order Date Echocardiogram 04/29/2022 Limited Echocardiogram 11/16/2023 Insurance Providers Payer Name Payer Address Payer Phone Subscriber Number Group Number Insured Name Patient Relationship to Insured Coverage Start Date Coverage End Date [facility] [address] [address] [place], [place] [id number] Cary Schneider Self - patient is the insured 8 Medical (General) History Medical History History ICD Code left breast lumoectomy with 34 tx radiat ion osteopenia Restless leg syndrome pacemaker implant 10/20/14 lung nodule in 200503-24-08 CT of Coronary roxanna tab 50-60% stenosis of LAD prior to 1st diagonal, mild stnoesis proximal RCA, left coronary dominance melanoma Presence of cardiac pacemaker Encounter for preprocedural cardiovascul ar examination Pacemaker reprogramming Abnormal result of cardiovascular functi on study, unspecified Syncope and collapse Bradycardia, unspecified Atherosclerotic heart diseas e of little shell tribe coronary artery without angina pectoris Essential (primary) hypertension Hyperlipidemia, unspecified Surgical History Surgery Date(Month/Year) appendectomy cardiac pacemaker lumpectomy, left breast Right Hip replacement 09/2021 [facility]- REFER FOR TAVR 03/18/24 Hospitalization History Reason Date(Month/Year) [facility] - Fall, right hip fracture 09/2021
--- OUTSIDE RECORDS SUMMARY | 2024-10-13 15:13 | XMS_ITS ---
Author Organization [facility] - [address] Address [address] [place] [address] Care Team Providers Care On Site Construction Superintendent Name Role Phone Romulo Hernandez M.D Primary Care Provider Unavailjayla JOEY BrarOD Unavailable [phone] JOSE HERMAN Unavailable [phone] REASON FOR VISIT TAVR @ [facility] Encounters Encounter Location Date Provider Diagnosis [facility] [address] [place] [address] 05/08/2024 JOSE HERMAN Plan Of Treatment No Information Progress Notes * Cary PIMENTEL ADOB: [birth year] (84 yo F)Acc No.[id number]:05/08/2024 Patient: Cary BROWN Provider: Uri HERMAN MD :1940 A ge:84 Y S ex:Female Date:05/08/2024 [facility] [facility] Pcp:Romulo Hernandez M.D Subjective: * Chief Complaints: * 1 . TAVR @ [facility]. * Medical History: Objective: * Vitals: Assessment: Plan: * Treatment: * * Electronic signature of ABY HERMAN MD, [facility] on 10/13/2024 at 04:12 PM EDT Sign off status: Pending * Provider: Uri HERMAN MD Date: 0 05/08/2024 Generated for Printi ng/Farachelg/eTransmitting on: 0 10/13/2024 04:12 PM EDT
--- OUTSIDE RECORDS SUMMARY | 2024-10-13 15:13 | XMS_ITS ---
Author Organization [facility] - [address] Address [address] [place] [address] Care Team Providers Care Knockout Worker Name Role Phone Romulo Hernandez M.D Primary Care Provider ANDRY Stephens Unavailable [phone] REASON FOR VISIT CARELINK (PACEMAKER) 3MTH F/U FROM HOME Encounters Encounter Location Date Provider Diagnosis [facility] [place] [address] [place] [address] 09/18/2024 ANDRY HEART Plan Of Treatment No Information Progress Notes * Cary PIMENTEL ADOB: [birth year] (84 yo F)Acc No.[id number]:09/18/2024 Patient: Cary BROWN Jason Provider: Pablo HEART MD :1940 A ge:84 Y S ex:Female Date:09/18/2024 Address[address] [facility] Pcp:Romulo Hernandez M.D Subjective: * Chief Complaints: * 1 . CARELINK (PACEMAKER) 3MTH F/U FROM HOME. * Medical History: Objective: * Vitals: Assessment: Plan: * Treatment: * * Electronic signature of ASHA HEART MD,[facility] on 10/13/2024 at 04:12 PM EDT Sign off status: Pending * Provider: Pablo HEART MD Date: 0 09/18/2024 Generated for Printi ng/Farachelg/eTransmitting on: 10/13/2024 04:12 PM EDT
--- OUTSIDE RECORDS SUMMARY | 2024-10-13 15:13 | XMS_ITS | Patient Health Record ---
Author Organization [facility] [employer], [facility] Address [address] [place] [address] Support Name Relationship Address Phone Cary Schneider Guarantor Unknown [phone] Reason For Referral No Information Plan Of Treatment No Information Insurance Providers Payer Name Payer Address Payer Phone Subscriber Number Group Number Insured Name Patient Relationship to Insured Coverage Start Date Coverage End Date [employer] [phone] [place], [place] [id number] Cary Schneider Self - patient is the insured Medical (General) History Surgical History Surgery Date(Month/Year) Appendectomy 02/11/2013
[2024-10-13 15:19] LABS: Add Urine Microscopic? YES; Appearance Urine Clear (Clear); Bilirubin Urine Negative (Negative); Blood Urine Negative (Negative); Color Urine Light Yellow (Yellow); Glucose Urine UA Negative (Negative); Ketones Urine Negative (Negative); Leukocyte Esterase Ur Trace LEU/UL (Negative); Nitrate Urine Negative (Negative); Protein Urine Negative (Negative); Urobilinogen Urine 0.2 mg/dL (0.2-1.0)
[2024-10-13 15:24] LABS: Bacteria Urine Trace /hpf; RBC Urine 0-2 /hpf (0-2); Squamous Epithelial Cell Urine Few /hpf (Few)
[2024-10-13 15:30] VITALS: BP 172/70; PULSE 67; RESP 17; O2SAT 99
[2024-10-13 15:55] VITALS: BP 172/70; PULSE 67; RESP 17; TEMP 36.8; O2SAT 99
--- NOTE | 2024-10-14 13:33 | PC.NURSE ---
prelim blood cx report no growth to date.
--- NOTE | 2024-10-19 12:54 | PC.NURSE ---
blood culture reviewed, no growth 5 days
== END 2024-10-13 15:55 | disposition home or self-care (01) ==
PROVIDERS: Emergency Provider Emergency Medicine; PCP Internal Medicine
DX: L03.116 Cellulitis of left lower limb (principal); L03.115 Cellulitis of right lower limb; E87.5 Hyperkalemia; I13.0 Hypertensive heart and chronic kidney disease with heart failure and stage 1 through stage 4 chronic kidney disease, or unspecified chronic kidney disease; I50.9 Heart failure, unspecified; N18.32 Chronic kidney disease, stage 3b
CPT/HCPCS: 36415; 71046; 80053; 81001; 83735; 83880; 84443; 84484; 85027; 85380; 85610; 85730; 87040; 93005; 93970; 99284

== ENCOUNTER 2024-10-28 08:47 | Outpatient (CLI) | payer MEDICARE, SELFPAY ==
--- NOTE | ~2024-10-28 | US_ITS ---
Renal-Bladder ultrasound Clinical History: Abnormal renal function studies Technique: Real-time sonographic imaging of the kidneys and urinary bladder was performed. Findings: The right kidney measures 9.4 cm in length and the left kidney measures 9.5 cm. There is no hydronephrosis or renal calculus identified. Renal cortical echogenicity is within normal limits. No renal mass lesion is identified. The urinary bladder is partially distended at the time of this exam. No intraluminal echoes are ident ified. No abnormal wall thickening is seen. Impression: Unremarkable ultrasound of the kidneys and urinary bladder. Reviewed, dictated and finalized at location M. Impression: Unremarkable ultrasound of the kidneys and urinary bladder.
--- OUTSIDE RECORDS SUMMARY | 2024-10-28 08:53 | XMS_ITS | Patient Health Record ---
Author Organization [facility] Address [address] [place] [address] Care Team Providers Care Dough Cutting Machine Operator Name Role Phone Romulo Hernandez Primary Care Provider Sasha Cruz Unavailable [phone] Allergies No Known Allergies Results Component Value Reference Range Notes Vitamin D 25-Hydroxy Reviewed date:04/17/2024 08:37:42 AM Interpretation: Performing Lab:[facility], [facility], [address], Phone - [phone], Director - [id number] Ericka Notes/Report: VITAMIN D-25 44.26 20-120 NG/ML LIPID PANEL Reviewed date:04/17/2024 08:37:41 AM Interpretation: Performing Lab:[facility], [facility], [address], Phone - [phone], Director - [id number] Ericka Notes/Report: CHOLESTEROL, TOTAL 148 170-199 MG/DL [...] Reviewed date:04/17/2024 08:37:41 AM Interpretation: Performing Lab:[facility], [address], Phone - [phone], Director - [id number] Ericka Notes/Report: SODIUM 134 136-145 MMOL/L POTASSIUM 4.7 [...] Collaboration (CKD-EPI) equation refit?without adjustment for race LIPID PANEL Reviewed date:01/09/2024 08:37:59 AM Interpretation: Performing Lab:[facility], [facility], [address], [facility], Phone - [phone], Director - [id number] Ericka Notes/Report: CHOLESTEROL, TOTAL 152 170-199 MG/DL [...] 08:37:59 AM Interpretation: Performing Lab:[facility], [facility], [address], [facility], Phone - [phone], Director - [id number] Dianna Notes/Report: SODIUM 137 136-145 MMOL/L POTASSIUM 4.9 [...] Date Status Vitamin D (Ergocalciferol) 1.25 MG (60252 UT) TAKE 1 CAPSULE BY MOUTH WEEKLY for 84 Active Omeprazole 40 MG TAKE 1 CAPSULE BY MO [facility] ONCE DAILY 30 MINUTES BEFORE MORNING [...] Vaccine Route Administration Date Status Comme nts Zoster (shingles) (12095) Unknown 02/08/2012 Administer ed ZOSTER IM Intramuscular 10/14/2023 Administered Pneumococcal conjugate PCV 13 Unknown 03/18/2017 Administered PCV20 Vaccine IM Intramuscular 01/03/2023 Administered Influenza, High dosage IM Intramuscular 01/22/2018 Adminis tered Influenza, High dosage IM Intramuscular 01/15/2019 Adminis tered Influenza, High dosage IM Intramuscular 02/18/2020 Adminis tered Influenza, High dosage IM Intramuscular 01/31/2021 Adminis tered Influenza, High dosage IM Intramuscular 04/04/2023 Adminis tered Influenza, High dosage IM Intramuscular 01/14/2024 Adminis tered tolerated INFLUENZA FLUCELVAX QUADRIVALENT REGULAR Unknown 02/27/2013 Administered INFLUENZA FLUCELVAX QUADRIVALENT REGULAR Unknown 02/11/2015 Administered Fluzone Quad Regular Flu Vaccine Unknown 02/16/2016 Administered FLUAD HIGH DOSE IM Intramuscular 12/21/2021 Administered COVID-19 Moderna Unknown 07/06/2020 Administered COVID-19 Moderna Unknown 08/03/2020 Administered Social History Tobacco Use: Social History Observation [...] Notes Problem Malignant neoplasm of female breast (254912183) Malignant neoplasm of unspecified site of left female breast (C50.912) Active confirmed Problem 340292400 Mixed hyperlipidemia (E78.2) Active confirmed Problem 78031712 Metabolic encephalopathy (G93.41) Active confirmed Problem 28386020 Hypertensive heart disease with heart failure (I11.0) Active confirmed Problem 189912654889734 Acute combined systolic (congestive) and diastolic (congestive) heart failure (I50.41) Active confirmed Problem 499368268092456 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) Active confirmed Problem 579721102 Bilateral primar y osteoarthritis of hip (M16.0) Active confirmed Problem 477351085218540 Pain in right hi p (M25.551) Active confirmed Problem Hypertension (32463376) Hypertension (I10) 2015 Active confirmed bia-Hypertens ion Problem Hypothyroidism (52487592) Hypothyroidism, adult (E03.9) Active confirmed Problem 118801521 Neuropathy (G62.9) Active confirmed Problem Hyperlipidaemia (03795744) Hyperlipemia (E78.5) Active confirmed Problem Abnormal gait (08114184) Abnormal gait (R26.9) Active confirmed Problem 360081256 Acute rhinosinusitis (J01.90) Active confirmed Problem 5180283532237 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) Active confirmed Problem 115198881 Osteoarthrosis, hip, localized (M16.9) Active confirmed Problem 34130928 Hypertensive nephropathy (I12.9) Active confirmed Problem 17831903 Nephrolithiasis (N20.0) Active confirmed Problem 108605713350852 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) Active confirmed Problem 100092285983401 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) Active confirmed Problem Bilateral caroti d bruits (R09.89) Active confirmed Problem 653179175 CKD (chronic kidney disease) stage 3, GFR 30-59 ml/min (N18.3) Active confirmed Problem 20134418 Parkinson diseas e (G20) Active confirmed Problem 33783614 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) Active confirmed Problem 25221478 Hypertensive heart and chronic kidney disease with heart failure and stage 1 through stage 4 chronic kidney disease, or chronic kidney disease (I13.0) Active confirmed Problem 80074385 Acute renal failure, unspecified acute renal failure type (N17.9) Active confirmed Problem 230388096 Bilateral exudative age-related macular degeneration, 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) Active confirmed Problem 07738147 Murmur, cardiac (R01.1) Active confirmed Problem 33497209 Leaky heart valv e (I38) Active confirmed Problem 549504506 Status post righ t hip replacement (Z96.641) Active confirmed Problem 08809429 Carpopedal spasm (R29.0) Active confirmed Problem 776776250 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 Showed on Echo test done on 09-12-20 Problem 359576518 Stage 4 chronic kidney disease (N18.4) Active confirmed Problem 037942064 Hx of breast cancer (Z85.3) Active confirmed Problem 862048458 Stage 3a chronic kidney disease (CKD) (N18.31) Active confirmed Problem Hyperkalemia (04833524) Hyperkalemia (E87.5) 2016 Active confirmed bia-Hyperkale blanco Problem 45001973 Sick sinus syndrome (I49.5) 2015 Active confirmed Holter Monitor Report from 03/10/14 shows no SR and Ahrytimias. Carotid Artery Test from 03/24/14 Shows occluded R internal carotid aretery Problem Syncope and collapse (652466226) Syncope and collapse (R55) 2015 Active confirmed bia-Syncope and collapse Problem Impaired fasting glucose (100991173) Impaired fasting glucose (R73.01) 2015 Active confirmed bia-Impaired fasting glucose Problem Vitamin D deficiency (29209979) Vitamin D deficiency (E55.9) 2016 Active confirmed bia-Vitamin D deficiency Problem Dyslipidemia (621554492) Dyslipidemia (E78.5) 2016 Active confirmed bia-Dyslipide blanco Problem Gastroesophageal reflux disease (176693941) GERD (gastroesophageal reflux disease) (K21.9) 2016 Active confirmed bia-GERD (gastroesopha geal reflux disease) Problem Abnormal mammogram (168163348) Abnormal mammogram (R92.8) 2015 Active confirmed bia-Abnormal mammogram Problem Insomnia (319356605) Insomnia (G47.00) 2016 Active confirmed bia-Insomnia Problem Age-related macular degeneration (disorder) (068352961) Macular degeneration (H35.30) 2015 Active confirmed bia-Macular degeneration Problem Chronic back pain (869955628) Chronic back pain (M54.9) 2015 Active confirmed bia-Chronic back pain Problem Azotemia (363580583) Azotemia (R79.89) 2016 Active confirmed bia-Azotemia Problem Vitamin B12 deficiency (non anemic) (95963790) Vitamin B 12 deficiency (E53.8) 2015 Active confirmed bia-Vitamin B 12 deficiency Problem 057122688 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) 2016 Active confirmed bia-Mixed disorder as reaction to stress (308.4) Problem Mononeuropathy of lower limb (303784678) Neuropathy of foot (G57.90) 2016 Active confirmed bia-Neuropath y of foot Problem Counseling (065358998) Counseling NOS (V65.40) (Z71.9) 2016 Active confirmed bia-Counselin g NOS (V65.40) Problem 217085164 Pacemaker (Z95.0) 2015 Active confirmed bia-Pacemaker (V45.01) Problem Hip joint pain (5679001701) Hip joint pain (M25.559) 2014 Active confirmed bia-Hip joint pain Problem Restless legs (60562925) Restless leg syndrome, controlled (G25.81) 2016 Active confirmed bia-Restless leg syndrome, controlled Problem Pre-procedure evaluation check (437132263) Preoperative clearance (Z01.818) 2015 Active confirmed bia-Preoperat antolin clearance Problem Hip pain (16198521) Hip pain (M25.559) 2015 Active confirmed bia-Hip pain Problem 4898187596891 Carotid artery stenosis, symptomatic (I65.29) 2015 Active confirmed bia-Carotid artery stenosis, symptomatic (433.10) Problem Carcinoma in situ of breast (646128323) Carcinoma in situ, lobular, breast, 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) 2015 Active confirmed bia-Carcinoma in situ, lobular, breast, left Problem Bone loss (233092055) Bone loss (M89.8X9) 2015 Active confirmed bia-Bone loss Problem 61602361 Restless legs syndrome (RLS) (G25.81) 2015 Active confirmed bia-RLS (restless legs syndrome) (333.94) Problem 866582044 Flea bite of multiple sites (W57.XXXA) 2015 Active confirmed bia-Flea bite of multiple sites (919.4) Problem 10537890 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 Active confirmed bia-Tympanic membrane disorder (384.9) Problem 981404380 Encounter for complete eye exam (Z01.00) 2015 [...] 06/26/2024 Encounters Encounter Location Date Provider Diagnosis [facility] [address] [facility] [address] [place] [address] 01/14/2024 Romulo Agbo Mixed hyperlipidemia E78.2 ; [...] and Encounter for tobacco use screening Z01.89 [facility] [address] [facility] [address] [place] [address] 01/17/2024 Sasha Cruz Encounter for genera l [...] disorders, unspecified Z13.30 and Medication management Z79.899 [facility] [address] [facility] [address] [place] [address] 02/20/2024 Romulo Agbo Chronic combined systolic (congestive) and diastolic (congestive) heart failure I50.42 ; Respiratory crackles at right lung base R09.89 ; Exertional shortness of breath R06.02 ; Hypertensive nephropathy I12.9 and Medication management Z79.899 [facility] [address] [place] [address] [address] [place] [address] 04/20/2024 Romulo Agbo [facility] [address] [place] [address] [address] [place] [address] 06/05/2024 Romulo Agbo Mixed hyperlipidemia E78.2 ; Hypertensive heart and chronic kidney disease with heart failure and stage 1 through stage 4 chronic kidney disease, or chronic kidney disease I13.0 ; Stage 3b chronic kidney disease N18.32 ; Physical exam Z00.00 ; Medication management Z79.899 and Body mass index (BMI) of 24.0 to 24.9 in adult Z68.24 [facility] [address] [facility] [address] [place] [address] 06/26/2024 Romulo Hernandez Restless legs syndro me [...] index (BMI) of 25.0-25.9 in adult Z68.25 [facility] [address] [facility] [address] [place] [address] 01/01/2024 Romulo Hernandez [facility] [address] [facility] [address] [place] [address] 03/23/2024 Romulo Hernandez Assessments Encounter Date Diagnosis (ICD Code) Assessment Notes Treatment Notes Treatment Clinical Notes Section Notes 01/14/2024 Mixed hyperlipidemia (ICD-10 - E78.2) The [...] Z01.89) 01/14/2024 Hypertensive nephropathy (ICD-10 - I12.9) 01/17/2024 Alcohol screening (ICD-10 - Z13.89) 01/14/2024 [...] in future appointments. The patient verbalizes understating. 01/17/2024 Advance care planning (ICD-10 - Z71.89) [...] Z12.31) 01/17/2024 Exercise counseling (ICD-10 - Z71.82) 01/17/2024 Dietary counseling (ICD-10 - Z71.3) 01/14/2024 Medication management (ICD-10 - Z79.899) 06/26/2024 Bilateral exudative age-related macular degeneration, unspecified stage (ICD-10 - H35.3230) Patient is stable. 06/26/2024 Nephrolithiasis (ICD-10 - N20.0) Patient is stable. 01/17/2024 Encounter for screening examination for mental health and behavioral disorders, unspecified (ICD-10 - Z13.30) 01/14/2024 Influenza vaccination administered at current visit (ICD-10 - Z23) 01/14/2024 Patient risk and functional assessment (ICD-10 - Z13.89) 01/17/2024 Medication management (ICD-10 - Z79.899) 06/26/2024 GERD (gastroesophageal reflux disease) (ICD-10 - K21.9) bia-GERD (gastroesopha geal reflux disease) Patient is stable. Continue with medication. 06/26/2024 Medication management (ICD-10 - Z79.899) 01/14/2024 Depression screening (ICD-10 - Z13.31) 01/14/2024 Encounter for tobacco use screening (ICD-10 - Z01.89) 06/26/2024 S/P TAVR (transcatheter aortic valve replacement) (ICD-10 - Z95.2) 06/26/2024 Body mass index (BMI) of 25.0-25.9 in adult (ICD-10 - Z68.25) 01/14/2024 Other EVALUATION AND THE MANAGEMENT APPLIED [...] Vitamin D, 25-Hydroxy 10/13/2018 Vitamin D, 25-Hydroxy 04/10/2019 Vitamin D, 25-Hydroxy 04/30/2018 Vitamin D, 25-Hydroxy 12/21/2021 Vitamin D, 25-Hydroxy 01/14/2024 Lipid Panel 01/14/2024 Lipid Panel 08/01/2023 Lipid Panel 10/14/2023 Lipid Panel 06/05/2024 Lipid Panel 04/04/2023 Lipid Panel 07/05/2023 Lipid Panel 03/26/2022 Lipid Panel 06/27/2022 Lipid Panel 09/28/2022 Lipid Panel 01/03/2023 Lipid Panel 09/20/2021 Lipid Panel 12/21/2021 Lipid Panel 05/12/2021 Lipid Panel 04/10/2019 Lipid Panel 07/09/2019 Lipid Panel 10/14/2017 Lipid Panel 01/22/2018 Lipid Panel 04/30/2018 Lipid Panel 07/29/2018 Lipid Panel 10/13/2018 Comp. Metabolic Panel (14) 07/29/2018 Comp. Metabolic Panel (14) 10/13/2018 Comp. Metabolic Panel (14) 07/09/2019 Comp. Metabolic Panel (14) 04/10/2019 Comp. Metabolic Panel (14) 04/30/2018 Comp. Metabolic Panel (14) 01/22/2018 Comp. Metabolic Panel (14) 10/14/2017 Comp. Metabolic Panel (14) 08/21/2021 Comp. Metabolic [...] Insured Coverage Start Date Coverage End Date [facility] [address] [place] [address] [phone] [id number] Cary Schneider Self - patient is the [...]
--- OUTSIDE RECORDS SUMMARY | 2024-10-28 08:53 | XMS_ITS ---
Author Organization [facility] Address [address] [place] [address] Care Team Providers Care Typing Bookkeeper Name Role Phone Mary KHAN M.D, Romulo Primary Care Provider Unavail able Nataliia Brand Unavailable Unavailable Vanna Morel Unavailable [phone] Allergies No Known Allergies REASON FOR VISIT [...] Location Date Provider Diagnosis [facility] [address] [place] [address] 06/05/2023 Vanna Morel Nausea with vomiting , [...] Notes * MARGARITOCHETDOB: 8 (84 yo F)Acc No.[id number]:06/05/2023 Progress Notes Patient: CHET BROWN Provider: Marcus Morel DO :1940 A ge:83 Y S ex:Female Date:06/05/2023 Address:[address] [place] [address] Pcp:Romulo Hernandez MD, M.D Subjective: * Chief [...] rn * Billing Information: * Visit Code: 34496 Office Visit, Est Pt., Level 3. * Procedure Codes: * Electronic signature of Vanna Morel DO on 10/28/2024 at 09:53 AM EDT Sign off status: Pending * Provider: Marcus Morel DO Date: 06/05/2023 Generated for Alona rosa/Angela/Paulieitting on: 0 10/28/2024 09:53 AM EDT History and Physical Notes * HPI [...]
--- OUTSIDE RECORDS SUMMARY | 2024-10-28 08:53 | XMS_ITS | Patient Health Record ---
Author Organization [facility] Address [address] [place], [place] [address] Care Team Providers Care Clinical Safety Specialist Name Role Phone Romulo Hernandez MD Primary Care Provider Flavio ACOSTA, Unavailable [phone] Allergies No Known Allergies Reason For Referral No Information Medications Medication SIG (Take, Route, Frequency, Duration) Notes Start Date End Date Status PreserVision AREDS 2 - as directed Orally Active Vitamin D3 1.25 MG (99300 UT) 1 capsule Orally Active Lisinopril 20 [...] Problem Status W/U Status Risk Notes Problem Nephrolithiasis (54391334) Nephrolithiasis (N20.0) Active confirmed Problem Chronic kidney disease stage 3A (546473169) Stage 3a chronic kidney disease (N18.31) Active confirmed Problem Cardiorenal syndrome with renal failure, stage 1-4 or unspecified chronic kidney disease, without heart failure (I13.10) Active confirmed Plan Of Treatment Future Test Test Name Order Date Ultrasound : Kidneys 08/05/2020 CMP (Comprehensive Metabolic panel) 12/2020 Urinalysis, Random w/Reflex to C & S 12/2020 CBC With Differential/Platelet 1 PTH, Intact 10/05/2020 Lipid Panel 10/05/2020 Uric Acid, Serum 11/04/2020 Creatinine Clearance 11/04/2020 CMP (Comprehensive Metabolic panel) 10/28 Hemoglobin A1c 11/20/2020 Urinalysis, Random w/Reflex to C & S CBC With Differential/Platelet PTH, Intact 11/20/2020 Lipid Panel 11/20/2020 Insurance Providers Payer Name Payer Address Payer Phone Subscriber Number Group Number Insured Name Patient Relationship to Insured Coverage Start Date Coverage End Date [facility] [address] [address] [place] [address] [id number] CHET PIMENTEL Self - patient is the insured Medical (General) History Medical History History ICD Code Pacemaker/ defibrillator Breast cancer Surgical History Surgery Date(Month/Year) Pacemaker placement 2017 Radiation and lumpectomy 2017
--- OUTSIDE RECORDS SUMMARY | 2024-10-28 08:53 | XMS_ITS | Patient Health Record ---
Author Organization [facility] Address [address] [place] [address] Support Name Relationship Address Phone Cary Schneider Guarantor Unknown [phone] Allergies No Known Allergies Reason For Referral [...] W/U Status Risk Notes Problem Chronic anemia (407498273) Anemia in other chronic diseases classified elsewhere (D63.8) Active confirmed Problem Hyperlipidemia (01591541) Hyperlipidemia, unspecified (E78.5) Active confirmed Problem Restless legs syndrome (08100114) Restless legs syndrome (G25.81) Active confirmed Problem Essential hypertension (68225365) Essential (primary) hypertension (I10) Active confirmed Problem Gastro-esophageal reflux disease without esophagitis (861213566) Gastro-esophagea l reflux disease without esophagitis (K21.9) Active confirmed Problem Abnormal gait (38539432) Unspecified abnormalities of gait and mobility (R26.9) Active confirmed Problem Recurrent falls (807493641) Repeated falls (R29.6) Active confirmed Problem Fracture of neck of femur (0277258) Fracture of unspecified part of neck of right femur, subsequent encounter for closed fracture with routine healing (S72.001D) Active confirmed Problem Cardiac pacemaker in situ (870601699) Presence of cardiac pacemaker (Z95.0) Active confirmed Problem COVID-19 (489280961) COVID-19 (U07.1) Active confirmed Plan Of Treatment No Information Insurance Providers Payer Name Payer Address Payer Phone Subscriber Number Group Number Insured Name Patient Relationship to Insured Coverage Start Date Coverage End Date [facility] [address] [address] [place] [address] [id number] Cary Schneider Self - patient is the [...]
--- OUTSIDE RECORDS SUMMARY | 2024-10-28 08:53 | XMS_ITS ---
Author Organization [facility] [address] Address [address] [place] [address] Care Team Providers Care Armature Bander Name Role Phone Romulo Hernandez M.D Primary Care Provider ANDRY Stephens Unavailable [phone] REASON FOR VISIT CARELINK (PACEMAKER) 3MTH F/U FROM HOME Encounters Encounter Location Date Provider Diagnosis [facility] [place] [address] [facility] [place] [address] 06/19/2024 ANDRY HEART Plan Of Treatment No Information Progress Notes * Cary PIMENTEL ADOB: [birth year] (84 yo F)Acc No.[id number]:06/19/2024 Patient: Cary BROWN Provider: Pablo HEART MD :1940 A ge:84 Y S ex:Female Date:06/19/2024 Address:[address] [facility] Pcp:Romulo Hernandez M.D Subjective: * Chief Complaints: * 1 . CARELINK (PACEMAKER) 3MTH F/U FROM HOME. * Medical History: Objective: * Vitals: Assessment: Plan: * Treatment: * * Electronic signature [facility] on 10/28/2024 at 09:53 AM EDT Sign off status: Pending * Provider: Pablo HEART MD Date: 06/19/2024 Generated for Printi ng/Farachelg/eTransmitting on: 10/28/2024 09:53 AM EDT
--- OUTSIDE RECORDS SUMMARY | 2024-10-28 08:54 | XMS_ITS | Patient Health Record ---
Author Organization [facility] Address [address] [place] [address] Care Team Providers Care Wind Turbine Erector Name Role Phone Mary KHAN M.D, Romulo [...] Risk Notes Problem Diverticular disease of colon (560304006) Diverticulosis of large intestine without perforation or abscess without bleeding (K57.30) Active confirmed Problem Residual hemorrhoidal skin tags (78082541) Residual hemorrhoidal skin tags (K64.4) Active confirmed Problem Nausea and vomiting (80452109) Nausea with vomiting, unspecified (R11.2) Active confirmed Problem History of polyp of colon (situation) (752522826) Personal history of colonic polyps (Z86.010) Active confirmed Problem Colon cancer screening (214350489) Screening Colon Cancer (Z12.11) Active confirmed Problem Dysphagia (91316920) Dysphagia (R13.10) Active confirmed Plan Of Treatment Pending Test Test Name Order Date COLONOSCOPY 07/25/2022 EGD 07/25/2022 US abdomen, limited to RUQ 07/25/2022 Insurance Providers Payer Name Payer Address Payer Phone Subscriber Number Group Number Insured Name Patient Relationship to Insured Coverage Start Date Coverage End Date [facility] [address] [place] [address] [id number] ER [id number] CHET PIMENTEL Self - patient is the insured Medical (General) History Medical History History ICD Code melanoma hypertension pacemaker AF Hyperlipidemia Surgical History Surgery Date(Month/Year) melanoma cancer cardiac pacemeker EGD 07/2022 COLONOSCOPY 07/2022
--- OUTSIDE RECORDS SUMMARY | 2024-10-28 08:54 | XMS_ITS | Patient Health Record ---
Author Organization [facility] - [address] Address [address] [place] [address] Care Team Providers Care Berry Picker Machine Operator Name Role Phone Romulo Hernandez M.D Primary Care Provider Unavailjayla HEARTJOEYOD Unavailable [phone] ATTDAREKAZULJOSE Unavailable [phone] Allergies No Known Allergies Results Component Value Reference Range Notes CAROTID ULTRASOUND Reviewed date:06/06/2024 10:05:10 AM Interpretation: Performing Lab: Notes/Report: BMI Counselling Reviewed date:04/15/2024 05:28:45 PM Interpretation:undefined Performing Lab: Notes/Report: undefined BP Check Reviewed date:04/15/2024 05:28:42 PM Interpretation:undefined Performing Lab: Notes/Report: undefined Fall Risk Assessment Reviewed date:04/15/2024 05:28:39 PM Interpretation:undefined Performing Lab: Notes/Report: undefined Tobacco Screening and Cessas izzy Reviewed date:04/15/2024 05:28:37 PM Interpretation:undefined Performing Lab: Notes/Report: undefined Bilateral [...] Diagnosis 1 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 Auth initiated in [facility] portal for cpt codes 59000 shows authorization is not required with Decision ID #: [id number] Referral Priority Routine Referral Appointment Date 03/10/2024 Reason A- LHC/OSC/DR. BELIA SOMMER Diagnosis 1 Acquired stenosis of aortic valve (I35.0) Referral Organization [facility] Referring Provider First Name ANDRY Referring Provider Last Name OTILIO Referring Provider Speciality Cardiology Referred Provider Specialty PCP General Notes Lizeth Cantu 2023 03:08:07 PM >[facility] AUTH #[id number] APPROVED FOR LHC/PCI WITH DR HERMAN FROM 03/10/24 TO 04/24/24 Referral Priority Routine Reason YANELY carotid us Diagnosis 1 Carotid stenosis, bi lateral (I65.23) Referral Organization [facility] Referring Provider First Name JOSE Referring Provider Last Name BATSHEVA Referring Provider Speciality Cardiology Referred Provider Specialty PCP General Notes Marie Stover 06/01/2023 10:54:23 AM >[place], [place] [address] Decision ID #: [id number] Referral Priority Stat Referral Appointment Date 04/07/2024 Reason NR-pacer ck Diagnosis 1 Syncope and collapse (R55) Referral Organization [facility] Referring Provider First Name [facility] Referring Provider Last Name [facility] Referring Provider Speciality Cardiology Referred Provider Specialty Cardiology General Notes Jose Hunt 03:42:39 PM >As per [facility] ,Pt has active Coverage from 04/29/2024 ,has a PPO Plan, Auth Initiated in [facility] for CPT 35734 ,82074 ,89610 ,10239 ,69133 ,44813 Shows that No Auth is REquired under Decision ID #: [id number]. Referral Priority Routine Referral Appointment Date 06/19/2024 Reason A tavr consult with dr. perez Diagnosis 1 SEVERE AORTIC STENOS IS (I35.0) Referral Organization [facility] Referring Provider First Name ANDRY Referring Provider Last Name SLY Referring Provider Speciality Cardiology Referred Provider Cynthia Perez Referred Provider Specialty Cardiac Surg rohan [...] Marie Stover 05/04/2024 09:54:23 AM >AUTH APPROVED [id number], 04/30-10/27/24 Referral Priority Routine Medications Medication SIG [...] (I35.0) Active confirmed Problem Sinus node dysfunction (28021128) Arrhythmia, sinus node (I49.5) Active confirmed Problem Accelerated essentia l hypertension (05497236) Accelerated essential hypertension (I10) Active confirmed Problem 67073490 Symptomatic bradycardia (R00.1) Active confirmed Problem 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 (171205978629140) 2-vessel coronary artery disease (I25.10) Active confirmed Problem Aortic valve disorde r (8157925) Acquired stenosis of aortic valve (I35.0) Active confirmed Problem 212825479 Carotid stenosis , bilateral (I65.23) Active confirmed Problem Hyperlipoproteinemia (8037895) Acquired hyperlipoproteinemia (E78.5) Active confirmed Problem 416424598 SEVERE AORTIC STENOSIS (I35.0) Active confirmed Problem Hyperlipidemia (14386294) Hyperlipidemia, unspecified (E78.5) 2015 Active confirmed Asaf-447 667- Problem 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 (973207315516727) Atherosclerotic heart disease of akutan coronary artery without angina pectoris (I25.10) 2015 Active confirmed [facility]-447 667- Problem Bradycardia (43239271) Bradycardia, unspecified (R00.1) 2015 Active confirmed [facility]-447 667-Sym ptomati c Problem Syncope and collapse (536320497) Syncope and collapse (R55) 2015 Active confirmed [facility]-447 667- Problem Cardiac pacemaker in situ (807012363) Presence of cardiac pacemaker (Z95.0) 2015 Active confirmed [facility]-447 667-Med tronic Dual Chamber - Advisa DR DuncanDR01 (MRI SAFE) S# [id number] 10-22-14 , has 5076 Leads. Vital Signs Heart Rate 81 /min 04/15/2024 Oximetry 98 % 04/15/2024 Blood pressure diastolic 78 mm Hg 04/15/2024 Height 66 in 04/15/2024 Blood pressure systolic 182 mm Hg 04/15/2024 Weight 156 lbs 04/15/2024 BMI 25.18 kg/m2 04/15/2024 Procedures Procedure Date Ordered Date Performed Result Body Sit e AORTIC VALVULOPLASTY 03/10/2024 N/A LEFT HEART CATH POSS PCI 03/10/2024 N/A TAVR 04/15/2024 N/A Encounters Encounter Location Date Provider Diagnosis [facility] [place] [place] [address] 09/18/2024 ANDRY MIRYALA [facility] [place] [place] [address] 06/19/2024 ANDRY MIRYALA [facility] [place] [place] [address] 03/20/2024 ANDRY MIRYALA [facility] [place] [place] [address] 12/20/2023 ANDRY MIRYALA [facility] [place] [place] [address] 03/10/2024 ANDRY MIRYALA [facility] [place] [place] [address] 04/15/2024 JOSE ATTANTI SEVERE AORTIC STENOSIS I35.0 ; Carotid stenosis, bilateral I65.23 ; Presence of cardiac pacemaker Z95.0 ; Atherosclerotic heart disease of akutan coronary artery without angina pectoris I25.10 and Hyperlipidemia, unspecified E78.5 [facility] [place] [place] [address] 03/10/2024 ANDRY MIRYALA Accelerated essentia l hypertension I10 ; Acquired stenosis of aortic valve I35.0 ; Acquired hyperlipoproteinemia E78.5 ; SEVERE AORTIC STENOSIS I35.0 and Atherosclerotic heart disease of akutan coronary artery without angina pectoris I25.10 [facility] [place] [place] [address] 11/14/2023 ANDRY MIRYALA Arrhythmia, vagal R5 5 ; Accelerated essential hypertension I10 ; Acute kidney failure N17.9 ; Acquired stenosis of aortic valve I35.0 ; Acquired hyperlipoproteinemia E78.5 and Fall, subsequent encounter W19.XXXD [facility] [place] [address] [facility] [address] [place] [address] 04/07/2024 JOSE ATTANTI [facility] [address] [place] [address] 05/08/2024 JOSE ATTANTI [facility] [place] [place] [address] 03/13/2024 ANDRY MIRYALA Accelerated essentia l hypertension I10 [facility] [address] [place] [address] 03/18/2024 JOSE ATTANTI [facility] [place] [place] [address] 04/07/2024 ANDRY MIRYALA [facility] [place] [place] [address] 10/21/2024 ANDRY MIRYALA [facility] [place] [place] [address] 08/20/2024 ANDRY MIRYALA [facility] [place] [place] [address] 06/03/2024 ANDRY MIRYALA [facility] [address] [place] [address] 05/04/2024 ANDRY MIRYALA [facility] [place] [place] [address] 03/31/2024 JOSE ATTANTI Carotid stenosis, bilateral I65.23 [facility] [place] [place] [address] 03/24/2024 ANDRY MIRYALA [facility] [place] [place] [address] 03/20/2024 ANDRY MIRYALA [facility] [place] [place] [address] 03/18/2024 ANDRY MIRYALA [facility] [place] [place] [address] 03/13/2024 ANDRY MIRYALA [facility] [place] [place] [address] 03/12/2024 ANDRY MIRYALA Accelerated essentia l hypertension I10 and SEVERE AORTIC STENOSIS I35.0 [facility] [place] [place] [address] 03/10/2024 ANDRY MIRYALA Encounter for other specified surgical aftercare Z48.89 [facility] [place] [place] [address] 03/10/2024 ANDRY MIRYALA Assessments Encounter Date Diagnosis (ICD Code) Assessment Notes Treatment Notes Treatment Clinical Notes Section Notes 03/10/2024 Accelerated essentia l hypertension (ICD-10 - I10) High Blood Pressure: Care Instructions material was printed Severe CKD 03/10/2024 Encounter for other specified surgical aftercare (ICD-10 - Z48.89) 03/12/2024 Accelerated essentia l hypertension (ICD-10 - I10) 03/31/2024 Carotid stenosis, bilateral (ICD-10 - I65.23) 04/15/2024 SEVERE AORTIC STENOS IS (ICD-10 - I35.0) 03/13/2024 Accelerated essentia l hypertension (ICD-10 - I10) 11/14/2023 Arrhythmia, vagal (ICD-10 - R55) 04/15/2024 Carotid stenosis, bilateral (ICD-10 - I65.23) 11/14/2023 Accelerated essentia l hypertension (ICD-10 - I10) 03/12/2024 SEVERE AORTIC STENOS IS (ICD-10 - I35.0) 03/10/2024 Acquired stenosis of aortic valve (ICD-10 - I35.0) Severe CKD 03/10/2024 Acquired hyperlipoproteinemia (ICD-10 - E78.5) Severe CKD 04/15/2024 Presence of cardiac pacemaker (ICD-10 - Z95.0) 11/14/2023 Acute kidney failure (ICD-10 - N17.9) 04/15/2024 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 04/15/2024 Other Severe aortic stenosis: scheduled for TAVR, has had CT surgeon consult, has had CT TAVR and [facility] which were all reviewed. Will follow-up post TAVR. Carotid stenosis: Carotid ultrasound reviewed showed moderate stenosis right ICA. Continue on aspirin. Hypertension: Continue current management and continue to monitor elevated today. CAD: [facility] reviewed continue to follow-up with primary floor technician. Thank you so much for including us in her plan of care. 03/10/2024 Other 1. Pleasant female patient with [...] with understanding and agreement expressed. Severe CKD Plan Of Treatment Pending Test Test Name [...] Insured Coverage Start Date Coverage End Date [facility] [address] [address] [place], [place] [id number] Cary Schneider Self - patient is the [...] Bradycardia, unspecified Atherosclerotic heart diseas e of akutan coronary artery without angina pectoris Essential (primary) hypertension Hyperlipidemia, unspecified Surgical History Surgery Date(Month/Year) appendectomy cardiac pacemaker lumpectomy, left breast Right Hip replacement 09/2021 LHC- REFER FOR TAVR 03/18/24 Hospitalization History Reason Date(Month/Year) LR - Fall, right hip fracture 09/2021
--- OUTSIDE RECORDS SUMMARY | 2024-10-28 08:54 | XMS_ITS ---
Author Organization [facility] - [address] Address [address] [place] [address] Care Team Providers Care Commercial Artist Lettering Name Role Phone Romulo Hernandez M.D Primary Care Provider Unavailjayla JOEY BrarOD Unavailable [phone] JOSE HERMAN Unavailable [phone] REASON FOR VISIT TAVR @ [facility] Encounters Encounter Location Date Provider Diagnosis [facility] [address] [place] [address] 05/08/2024 JOSE HERMAN Plan Of Treatment No Information Progress Notes * Cary PIMENTEL ADOB: [birth year] (84 yo F)Acc No.[id number]:05/08/2024 Patient: Cary BROWN Provider: Uri HERMAN MD :1940 A ge:84 Y S ex:Female Date:05/08/2024 [address] [facility] Pcp:Romulo Hernandez M.D Subjective: * Chief Complaints: * 1 . TAVR @ [facility]. * Medical History: Objective: * Vitals: Assessment: Plan: * Treatment: * * Electronic signature of ABY HERMAN MD, [facility] on 10/28/2024 at 09:54 AM EDT Sign off status: Pending * Provider: Uri HERMAN MD Date: 0 05/08/2024 Generated for Printi shelley/Angela/eTransmitting on: 0 10/28/2024 09:54 AM EDT
--- OUTSIDE RECORDS SUMMARY | 2024-10-28 08:54 | XMS_ITS ---
Author Organization [facility] - [address] Address [address] [place] [address] Care Team Providers Care Managing Consultant Clinical Professor Name Role Phone Rmoulo Hernandez M.D Primary Care Provider ANDRY Stephens Unavailable [phone] REASON FOR VISIT CARELINK (PACEMAKER) 3MTH F/U FROM HOME Encounters Encounter Location Date Provider Diagnosis [facility] [place] [address] [place] [address] 09/18/2024 ANDRY HEART Plan Of Treatment No Information Progress Notes * Cary PIMENTEL ADOB: [birth year] (84 yo F)Acc No.[id number]:09/18/2024 Patient: Cary BROWN Provider: Pablo HEART MD :1940 A ge:84 Y S ex:Female Date:09/18/2024 Address[address] [facility] Pcp:Romulo Hernandez M.D Subjective: * Chief Complaints: * 1 . CARELINK (PACEMAKER) 3MTH F/U FROM HOME. * Medical History: Objective: * Vitals: Assessment: Plan: * Treatment: * * Electronic signature of ASHA HEART MD,[facility] on 10/28/2024 at 09:54 AM EDT Sign off status: Pending * Provider: Pablo HEART MD Date: 09/18/2024 Generated for Printi ng/Farachelg/eTransmitting on: 10/28/2024 09:54 AM EDT
--- OUTSIDE RECORDS SUMMARY | 2024-10-28 08:54 | XMS_ITS | Patient Health Record ---
Author Organization [facility] Address [address] [place] [address] Support Name Relationship Address Phone Cary Schneider Guarantor Unknown [phone] Reason For Referral No Information Plan Of Treatment No Information Insurance Providers Payer Name Payer Address Payer Phone Subscriber Number Group Number Insured Name Patient Relationship to Insured Coverage Start Date Coverage End Date [employer] [phone] [place], [place] [id number] Cary Schneider Self - patient is the insured Medical (General) History Surgical History Surgery Date(Month/Year) Appendectomy 02/11/2013
[2024-10-28 09:11] LABS: Hematocrit 34.4 % (35.0-42.0); Hemoglobin 11.4 g/dL (11.7-13.8); Mean Corpuscular HGB Conc 33.1 g/dL (32-36); Mean Corpuscular Hemoglobin 31.9 pg (27.0-31.0); Mean Corpuscular Volume 96.4 fL (78.0-102.0); Platelet Count Result 121 K/mm3 (150-420); Red Blood Count 3.57 M/mm3 (4.20-5.40); White Blood Count 6.6 K/mm3 (4.8-10.8)
[2024-10-28 09:20] LABS: Total Protein Urine Random 16 mg/dL; Ur Ttl Prot Creatinine Ratio 0.26 mg/mg (0-0.20)
[2024-10-28 09:24] LABS: Albumin Level 4.4 g/dL (3.5-5.1); Anion Gap 7 mmol/L (4-12); Blood Urea Nitrogen 34 mg/dL (7-17); Calcium 8.8 mg/dL (8.4-10.2); Carbon Dioxide 27 mmol/L (22-30); Chloride 103 mmol/L (98-107); Creatine Kinase 182 U/L (30-135); Estimated Glomerular Filt Rate 29; Glucose 122 mg/dL (65-110); Osmolality Calculated 292 mOsm/kg (285-295); Potassium 4.8 mmol/L (3.4-5.0); Sodium 137 mmol/L (137-145)
[2024-10-28 11:07] LABS: Magnesium 2.0 mg/dL (1.6-2.3)
[2024-10-29 13:44] LABS: Complement Total CH50. 57 U/mL (31-60)
[2024-10-29 14:34] LABS: Parathyroid Intact 92 pg/mL (16-77)
[2024-11-02 14:39] LABS: Kappa\\Lambda Light Chains 1.32 (0.26-1.65)
== END 2024-10-28 08:48 | disposition home or self-care (01) ==
LOC: CHSIMG 08:48
PROVIDERS: Internal Medicine Cardiovascular Disease; PCP Internal Medicine; Visit Provider Internal Medicine Nephrology
DX: I51.89 Other ill-defined heart diseases (principal); R94.4 Abnormal results of kidney function studies
CPT/HCPCS: 36415; 76775; 80069; 82550; 82570; 83521; 83735; 83970; 84156; 85027; 85652; 86038; 86039; 86160; 86162; 86334

== ENCOUNTER 2024-11-06 10:02 | Outpatient (NON) | payer MEDICARE, SELFPAY ==
--- OUTSIDE RECORDS SUMMARY | 2024-11-06 10:08 | XMS_ITS | Patient Health Record ---
Author Organization [facility] Address [address] [place] [address] Support Name Relationship Address Phone Cary Schneider Guarantor Unknown [phone] Allergies No Known Allergies Reason For Referral [...] W/U Status Risk Notes Problem Chronic anemia (393679036) Anemia in other chronic diseases classified elsewhere (D63.8) Active confirmed Problem Hyperlipidemia (65347941) Hyperlipidemia, unspecified (E78.5) Active confirmed Problem Restless legs syndrome (00349484) Restless legs syndrome (G25.81) Active confirmed Problem Essential hypertension (83359791) Essential (primary) hypertension (I10) Active confirmed Problem Gastro-esophageal reflux disease without esophagitis (981279046) Gastro-esophagea l reflux disease without esophagitis (K21.9) Active confirmed Problem Abnormal gait (33003365) Unspecified abnormalities of gait and mobility (R26.9) Active confirmed Problem Recurrent falls (164276293) Repeated falls (R29.6) Active confirmed Problem Fracture of neck of femur (9075902) Fracture of unspecified part of neck of right femur, subsequent encounter for closed fracture with routine healing (S72.001D) Active confirmed Problem Cardiac pacemaker in situ (326590003) Presence of cardiac pacemaker (Z95.0) Active confirmed Problem COVID-19 (379216214) COVID-19 (U07.1) Active confirmed Plan Of Treatment No Information Insurance Providers Payer Name Payer Address Payer Phone Subscriber Number Group Number Insured Name Patient Relationship to Insured Coverage Start Date Coverage End Date [facility] [address] [address] [place] [id number] Cary Schneider Self - patient is the [...]
--- OUTSIDE RECORDS SUMMARY | 2024-11-06 10:08 | XMS_ITS | Patient Health Record ---
Author Organization [facility] Address [address] [place], [place] [address] Care Team Providers Care Judicial Administrative Assistant Name Role Phone Romulo Hernandez MD Primary Care Provider Flavio ACOSTA, Unavailable [phone] Allergies No Known Allergies Reason For Referral No Information Medications Medication SIG (Take, Route, Frequency, Duration) Notes Start Date End Date Status PreserVision AREDS 2 - as directed Orally Active Vitamin D3 1.25 MG (18783 UT) 1 capsule Orally Active Lisinopril 20 [...] Status W/U Status Risk Notes Problem Nephrolithiasis (69086495) Nephrolithiasis (N20.0) Active confirmed Problem Chronic kidney disease stage 3A (929551403) Stage 3a chronic kidney disease (N18.31) Active [...] Insured Coverage Start Date Coverage End Date [facility] [address] [address] [place] [id number] CHET PIMENTEL Self - patient is the insured Medical (General) History Medical History History ICD Code Pacemaker/ defibrillator Breast cancer Surgical History Surgery Date(Month/Year) Pacemaker placement 2017 Radiation and lumpectomy 2017
--- OUTSIDE RECORDS SUMMARY | 2024-11-06 10:08 | XMS_ITS ---
Author Organization [facility] Address [address] [place] [address] Care Team Providers Care Suit Maker Name Role Phone Mary KHAN M.D, Romulo Primary Care Provider Unavail able Nataliia Brand Unavailable Unavailable Vanna Morel Unavailable [phone] Allergies No Known Allergies REASON FOR VISIT [...] Location Date Provider Diagnosis [facility] [address] [place] [address] 06/05/2023 Vanna Morel Nausea with vomiting , [...] Notes * MARGARITOCHETDOB: 8 (84 yo F)Acc No.[id number]:06/05/2023 Progress Notes Patient: CHET BROWN Provider: Marcus Morel DO :1940 A ge:83 Y S ex:Female Date:06/05/2023 Address:[address] [place] [address] Pcp:Romulo Hernandez MD, M.D Subjective: * Chief [...] good eye contact. Assessment: * Assessment: 1. N ausea with vomiting, unspecified - R11.2 (Primary) 2 . D ysphagia - R13.10 3 . P ersonal history of colonic [...] rn * Billing Information: * Visit Code: 36496 Office Visit, Est Pt., Level 3. * Procedure Codes: * Electronic signature of Vanna Morel DO on 11/06/2024 at 11:08 AM EDT Sign off status: Pending * Provider: Marcus Morel DO Date: 06/05/2023 Generated for Alona rosa/Angela/Paulieitting on: 0 11/06/2024 11:08 AM EDT History and Physical Notes * [...]
--- OUTSIDE RECORDS SUMMARY | 2024-11-06 10:08 | XMS_ITS ---
Author Organization [facility] - [address] Address [address] [place] [address] Care Team Providers Care Block Tester Name Role Phone Romulo Hernandez M.D Primary Care Provider ANDRY Stephens Unavailable [phone] REASON FOR VISIT CARELINK (PACEMAKER) 3MTH F/U FROM HOME Encounters Encounter Location Date Provider Diagnosis [facility] [place] [address] [facility] [address] [place] [address] 06/19/2024 ANDRY HEART Plan Of Treatment No Information Progress Notes * Cary PIMENTEL ADOB: [birth year] (84 yo F)Acc No.[id number]:06/19/2024 Patient: Cary BROWN Provider: Pablo HEART MD :1940 A ge:84 Y S ex:Female Date:06/19/2024 Address[address] [facility] Pcp:Romulo Hernandez M.D Subjective: * Chief Complaints: * 1 . CARELINK (PACEMAKER) 3MTH F/U FROM HOME. * Medical History: Objective: * Vitals: Assessment: Plan: * Treatment: * * Electronic signature of [facility]SHA [facility] MD,[facility] on 11/06/2024 at 11:08 AM EDT Sign off status: Pending * Provider: Pablo HEART MD Date: 0 06/19/2024 Generated for Printi ng/Farachelg/eTransmitting on: 0 11/06/2024 11:08 AM EDT
--- OUTSIDE RECORDS SUMMARY | 2024-11-06 10:08 | XMS_ITS ---
Author Organization [facility] - [address] Address [address] [place] [address] Care Team Providers Care Pharmacy Customer Care Specialist Name Role Phone Romulo Hernandez M.D Primary Care Provider ANDRY Stephens Unavailable [phone] REASON FOR VISIT CARELINK (PACEMAKER) 3MTH F/U FROM HOME Encounters Encounter Location Date Provider Diagnosis [facility] [place] [address] [place] [address] 09/18/2024 ANDRY HEART Plan Of Treatment No Information Progress Notes * Cary PIMENTEL ADOB: [birth year] (84 yo F)Acc No.[id number]:09/18/2024 Patient: Cary BROWN Jason Provider: Pablo HEART MD :1940 A ge:84 Y S ex:Female Date:09/18/2024 Address:[address] [facility] Pcp:Romulo Hernandez M.D Subjective: * Chief Complaints: * 1 . CARELINK (PACEMAKER) 3MTH F/U FROM HOME. * Medical History: Objective: * Vitals: Assessment: Plan: * Treatment: * * Electronic signature of ASHA [facility]ART MD,[facility] on 11/06/2024 at 11:08 AM EDT Sign off status: Pending * Provider: Pablo HEART MD Date: 09/18/2024 Generated for Printi ng/Farachelg/eTransmitting on: 11/06/2024 11:08 AM EDT
--- OUTSIDE RECORDS SUMMARY | 2024-11-06 10:08 | XMS_ITS | Patient Health Record ---
Author Organization [facility] - [address] Address [address] [place] [address] Care Team Providers Care Lease Administrator Name Role Phone Romulo Hernandez M.D Primary Care Provider ANDRY Stephens Unavailable [phone] [email or web address] Unavailable [phone] Allergies No Known Allergies Results Component Value Reference Range Notes Tobacco Screening and Cessas izzy Reviewed date:04/15/2024 [...] date:03/12/2024 03:29:44 PM Interpretation: Performing Lab: Notes/Report: CAROTID ULTRASOUND Reviewed date:06/06/2024 10:05:10 AM Interpretation: Performing Lab: Notes/Report: Reason For Referral Reason NR-limited echo Diagnosis 1 Atherosclerotic hear t disease of asa'[place] coronary artery without angina pectoris (I25.10) Referral Organization [facility] Referring Provider First Name ANDRY Referring Provider Last Name OTILIO Referring Provider Speciality Cardiology Referred Provider Specialty PCP General Notes Jose Hunt 04:18:43 PM >As per [facility] Portal the member has HMO plan and active coverage from 04/29/2023. Auth initiated in [facility] portal for cpt codes 20165 shows authorization is not required with Decision ID #: [id number] Referral Priority Routine Referral Appointment Date 03/10/2024 Reason A- LHC/OSC/DR. BELIA SOMMER Diagnosis 1 Acquired stenosis of aortic valve (I35.0) Referral Organization [facility] Referring Provider First Name ANDRY Referring Provider Last Name OTILIO Referring Provider [facility] Referred Provider Specialty PCP General Notes Lizeth Cantu 2023 03:08:07 PM >[facility] AUTH #[id number] APPROVED FOR LHC/PCI WITH DR HERMAN FROM 03/10/24 TO 04/24/24 Referral Priority Routine Reason YANELY carotid us Diagnosis 1 Carotid stenosis, bi lateral (I65.23) Referral Organization [facility] Referring Provider First Name JOSE Referring Provider Last Name BATSHEVA Referring Provider Speciality Cardiology Referred Provider Specialty PCP General Notes Marie Stover 1 06/01/2023 10:54:23 AM >[place], [place] [address] Decision ID #: [id number] Referral Priority Stat Referral Appointment Date 04/07/2024 Reason NR-pacer ck Diagnosis 1 Syncope and collapse (R55) Referral Organization [facility] Referring Provider First Name [facility] Referring Provider Last Name [facility] Referring Provider Speciality Cardiology Referred Provider Specialty Cardiology General Notes Jose Hunt 03:42:39 PM >As per [facility] ,Pt has active Coverage from 04/29/2024 ,has a PPO Plan, Auth Initiated in [facility] for CPT 52352 ,80012 ,08187 ,18065 ,99949 ,21643 Shows that No Auth is REquired under Decision ID #: [id number]. Referral Priority Routine Referral Appointment Date 06/19/2024 Reason A tavr consult with dr. perez Diagnosis 1 SEVERE AORTIC STENOS IS (I35.0) Referral Organization [facility] Referring Provider First Name ANDRY Referring [...] Marie Stover 05/04/2024 09:54:23 AM >AUTH APPROVED [id number], 04/30-10/27/24 Referral Priority Routine Medications Medication SIG [...] (I35.0) Active confirmed Problem Sinus node dysfunction (30158135) Arrhythmia, sinus node (I49.5) Active confirmed Problem Accelerated essentia l hypertension (72615180) Accelerated essential hypertension (I10) Active confirmed Problem 89949188 Symptomatic bradycardia (R00.1) Active confirmed Problem Atherosclerotic hear t disease of asa'[place] coronary artery without angina pectoris (079694385000699) 2-vessel coronary artery disease (I25.10) Active confirmed Problem Aortic valve disorde r (1517691) Acquired stenosis of aortic valve (I35.0) Active confirmed Problem 982753311 Carotid stenosis , bilateral (I65.23) Active confirmed Problem Hyperlipoproteinemia (1244804) Acquired hyperlipoproteinemia (E78.5) Active confirmed Problem 426528627 SEVERE AORTIC STENOSIS (I35.0) Active confirmed Problem Hyperlipidemia (04105970) Hyperlipidemia, unspecified (E78.5) 2015 Active confirmed Asaf-447 667- Problem Atherosclerotic hear t disease of [place] coronary artery without angina pectoris (597260437888059) Atherosclerotic heart disease of asa'[place] coronary artery without angina pectoris (I25.10) 2015 Active confirmed Asaf-447 667- Problem Bradycardia (57972073) Bradycardia, unspecified (R00.1) 2015 Active confirmed Asaf-447 667-Sym ptomati c Problem Syncope and collapse (721316919) Syncope and collapse (R55) 2015 Active confirmed Asaf-447 667- Problem Cardiac pacemaker in situ (752325992) Presence of cardiac pacemaker (Z95.0) 2015 Active confirmed [facility]-447 667-Med tronic Dual Chamber - Advisa DR DuncanDR01 (MRI SAFE) S# [id number] [facility] 10-22-14 , has 5076 Leads. Vital Signs [...] N/A Encounters Encounter Location Date Provider Diagnosis [facility] - [address] [place] [address] 12/20/2023 ANDRY MIRYALA [facility] [address] [place] [address] 03/18/2024 JOSE ATTANTI [facility] - [address] [place] [address] 03/20/2024 ANDRY MIRYALA [facility] [address] [place] [address] 05/08/2024 JOSE ATTANTI [facility] - [address] [place] [address] 06/19/2024 ANDRY MIRYALA [facility] - [address] [place] [address] 09/18/2024 ANDRY MIRYALA [facility] - [address] [place] [address] 11/14/2023 ANDRY MIRYALA Arrhythmia, vagal R5 5 ; Accelerated essential hypertension I10 ; Acute kidney failure N17.9 ; Acquired stenosis of aortic valve I35.0 ; Acquired hyperlipoproteinemia E78.5 and Fall, subsequent encounter W19.XXXD [facility] [place] [place] [address] 03/10/2024 ANDRY MIRYALA [facility] [place] [address] [facility] [address] [place] [address] 03/10/2024 ANDRY MIRYALA Accelerated essentia l hypertension I10 ; Acquired stenosis of aortic valve I35.0 ; Acquired hyperlipoproteinemia E78.5 ; SEVERE AORTIC STENOSIS I35.0 and Atherosclerotic heart disease of as[place] coronary artery without angina pectoris I25.10 [facility] [place] [place] [address] 03/13/2024 ANDRY MIRYALA Accelerated essentia l hypertension I10 [facility] [place] [place] [address] 04/07/2024 JOSE ATTANTI [facility] [place] [facility] [place] [place] [place] [address] 04/15/2024 JOSE ATTANTI SEVERE AORTIC STENOSIS I35.0 ; Carotid stenosis, bilateral I65.23 ; Presence of cardiac pacemaker Z95.0 ; Atherosclerotic heart disease of asa'[place] coronary artery without angina pectoris I25.10 and Hyperlipidemia, unspecified E78.5 [facility] [place] [address] [facility] [address] [place] [address] 04/07/2024 ANDRY MIRYALA [facility] [place] [facility] [place] [place] [place] [address] 03/10/2024 ANDRY MIRYALA [facility] [place] [facility] [place] [place] [address] 03/10/2024 ANDRY MIRYALA Encounter for other specified surgical aftercare Z48.89 [facility] [place] [address] [facility] [address] [place] [address] 03/12/2024 ANDRY MIRYALA Accelerated essentia l hypertension I10 and SEVERE AORTIC STENOSIS I35.0 [facility] [place] [place] [address] 03/13/2024 ANDRY MIRYALA [facility] [place] [place] [address] 03/18/2024 ANDRY MIRYALA [facility] [place] [place] [address] 03/20/2024 ANDRY MIRYALA [facility] [place] [address] [facility] [place] [address] 03/24/2024 ANDRY MIRYALA [facility] [place] [address] [facility] [place] [address] 03/31/2024 JOSE ATTANTI Carotid stenosis, bilateral I65.23 [facility] [address] [place] [address] 05/04/2024 ANDRY MIRYALA [facility] [place] [address] [place] [address] 06/03/2024 ANDRY MIRYALA [facility] [place] [address] [facility] [place] [address] 08/20/2024 ANDRY MIRYALA [facility] [place] [address] [facility] [address] [facility] [place] [address] 10/21/2024 ANDRY MIRYALA Assessments Encounter Date Diagnosis (ICD [...] Z95.0) 04/15/2024 Atherosclerotic hear t disease of asa'[place] coronary artery without angina pectoris (ICD-10 - I25.10) 03/10/2024 SEVERE AORTIC STENOS IS (ICD-10 - I35.0) Severe CKD 11/14/2023 Acquired stenosis of aortic valve (ICD-10 - I35.0) 03/10/2024 Atherosclerotic hear t disease of asa'[place] coronary artery without angina pectoris (ICD-10 - I25.10) [facility]297772- Severe CKD 11/14/2023 Acquired hyperlipoproteinemia (ICD-10 - [...] surgeon consult, has had CT TAVR and C which were all reviewed. Will follow-up post TAVR. Carotid stenosis: Carotid ultrasound reviewed showed moderate stenosis right ICA. Continue on aspirin. Hypertension: Continue current management and continue to monitor elevated today. CAD: LHC reviewed continue to follow-up with primary chimney construction supervisor. Thank you so much for including [...] Insured Coverage Start Date Coverage End Date [facility] [address] [address] [place], [place] [id number] Cary Schneider Self - patient is the [...] Bradycardia, unspecified Atherosclerotic heart diseas e of asa'cars[place] coronary artery without angina pectoris Essential (primary) hypertension Hyperlipidemia, unspecified Surgical History Surgery Date(Month/Year) [facility]- REFER FOR TAVR 03/18/24 Right Hip replacement 09/2021 lumpectomy, left breast cardiac pacemaker appendectomy Hospitalization History Reason Date(Month/Year) [facility] - Fall, right hip fracture 09/2021
--- OUTSIDE RECORDS SUMMARY | 2024-11-06 10:08 | XMS_ITS | Patient Health Record ---
Author Organization [facility] Address [address] [place] [address] Care Team Providers Care Coater Helper Name Role Phone Mary KHAN M.D, Romulo [...] Risk Notes Problem Diverticular disease of colon (331345297) Diverticulosis of large intestine without perforation or abscess without bleeding (K57.30) Active confirmed Problem Residual hemorrhoidal skin tags (93826116) Residual hemorrhoidal skin tags (K64.4) Active confirmed Problem Nausea and vomiting (19485485) Nausea with vomiting, unspecified (R11.2) Active confirmed Problem History of polyp of colon (situation) (445639409) Personal history of colonic polyps (Z86.010) Active confirmed Problem Colon cancer screening (276422495) Screening Colon Cancer (Z12.11) Active confirmed Problem Dysphagia (86471382) Dysphagia (R13.10) Active confirmed Plan Of Treatment Pending Test Test Name Order Date COLONOSCOPY 07/25/2022 EGD 07/25/2022 US abdomen, limited to RUQ 07/25/2022 Insurance Providers Payer Name Payer Address Payer Phone Subscriber Number Group Number Insured Name Patient Relationship to Insured Coverage Start Date Coverage End Date [facility] [address] [place] [address] [id number] ER [id number] CHET PIMENTEL Self - patient is the insured Medical (General) History Medical History History ICD Code melanoma hypertension pacemaker AF Hyperlipidemia Surgical History Surgery Date(Month/Year) melanoma cancer cardiac pacemeker EGD 07/2022 COLONOSCOPY 07/2022
--- OUTSIDE RECORDS SUMMARY | 2024-11-06 10:08 | XMS_ITS | Patient Health Record ---
Author Organization [facility] Address [address] [place] [address] Care Team Providers Care Margarine Churn Operator Name Role Phone Romulo Hernandez Primary Care Provider Sasha Cruz Unavailable [phone] Allergies No Known Allergies Results Component Value Reference Range Notes Vitamin D 25-Hydroxy Reviewed date:04/17/2024 08:37:42 AM Interpretation: Performing Lab:[facility], [facility], [address], Phone - [phone], Director - [id number] Ericka Notes/Report: VITAMIN D-25 44.26 20-120 NG/ML LIPID PANEL Reviewed date:04/17/2024 08:37:41 AM Interpretation: Performing Lab:[facility], [facility], [address], Phone - [phone], Director - [id number] Ericka Notes/Report: CHOLESTEROL, TOTAL 148 170-199 MG/DL [...] Reviewed date:04/17/2024 08:37:41 AM Interpretation: Performing Lab:[facility], [facility], [address] [facility], Phone - [phone], Director - [id number] Ericka Notes/Report: SODIUM 134 136-145 MMOL/L POTASSIUM [...] PANEL Reviewed date:01/09/2024 08:37:59 AM Interpretation: Performing Lab:[facility], [facility], [address], [facility], Phone - [phone], Director - [id number] Ericka Notes/Report: CHOLESTEROL, TOTAL 152 170-199 MG/DL [...] AM Interpretation: Performing Lab:[facility], [facility], [address], [facility], Phone - [phone], Director - [id number] Dianna Notes/Report: SODIUM 137 136-145 MMOL/L POTASSIUM [...] Date Status Vitamin D (Ergocalciferol) 1.25 MG (54499 UT) TAKE 1 CAPSULE BY MOUTH WEEKLY for 84 Active Omeprazole 40 MG TAKE 1 CAPSULE BY [facility] ONCE DAILY 30 MINUTES BEFORE MORNING [...] ZOSTER IM Intramuscular 10/14/2023 Administered Zoster (shingles) (28963) Unknown 02/08/2012 Administer ed Social History Tobacco [...] Notes Problem Malignant neoplasm of female breast (798832619) Malignant neoplasm of unspecified site of left female breast (C50.912) Active confirmed Problem 593737292 Mixed hyperlipidemia (E78.2) Active confirmed Problem 66931542 Metabolic encephalopathy (G93.41) Active confirmed Problem 05049170 Hypertensive heart disease with heart failure (I11.0) Active confirmed Problem 035266204998361 Acute combined systolic (congestive) and diastolic (congestive) heart failure (I50.41) Active confirmed Problem 767420182017586 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) Active confirmed Problem 975900974 Bilateral primar y osteoarthritis of hip (M16.0) Active confirmed Problem 715168539652340 Pain in right hi p (M25.551) Active confirmed Problem Hypertension (27817252) Hypertension (I10) 2015 Active confirmed bia-Hypertens ion Problem Hypothyroidism (38776025) Hypothyroidism, adult (E03.9) Active confirmed Problem 557547657 Neuropathy (G62.9) Active confirmed Problem Hyperlipidaemia (20428204) Hyperlipemia (E78.5) Active confirmed Problem Abnormal gait (70760679) Abnormal gait (R26.9) Active confirmed Problem 053152601 Acute rhinosinusitis (J01.90) Active confirmed Problem 5111165365664 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) Active confirmed Problem 179291700 Osteoarthrosis, hip, localized (M16.9) Active confirmed Problem 89621921 Hypertensive nephropathy (I12.9) Active confirmed Problem 77099546 Nephrolithiasis (N20.0) Active confirmed Problem 415462078945482 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) Active confirmed Problem 727937922897750 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) Active confirmed Problem Bilateral caroti d bruits (R09.89) Active confirmed Problem 966889626 CKD (chronic kidney disease) stage 3, GFR 30-59 ml/min (N18.3) Active confirmed Problem 75782416 Parkinson diseas e (G20) Active confirmed Problem 45883560 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) Active confirmed Problem 74148957 Hypertensive heart and chronic kidney disease with heart failure and stage 1 through stage 4 chronic kidney disease, or chronic kidney disease (I13.0) Active confirmed Problem 96399588 Acute renal failure, unspecified acute renal failure type (N17.9) Active confirmed Problem 525557758 Bilateral exudative age-related macular degeneration, 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) Active confirmed Problem 09657777 Murmur, cardiac (R01.1) Active confirmed Problem 19974940 Leaky heart valv e (I38) Active confirmed Problem 493333213 Status post righ t hip replacement (Z96.641) Active confirmed Problem 59522434 Carpopedal spasm (R29.0) Active confirmed Problem 810911268 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 Showed on Echo test done on 09-12-20 Problem 798736452 Stage 4 chronic kidney disease (N18.4) Active confirmed Problem 226944736 Hx of breast cancer (Z85.3) Active confirmed Problem 043780416 Stage 3a chronic kidney disease (CKD) (N18.31) Active confirmed Problem Hyperkalemia (22679684) Hyperkalemia (E87.5) 2016 Active confirmed bia-Hyperkale blanco Problem 85717080 Sick sinus syndrome (I49.5) 2015 Active confirmed Holter Monitor Report from 03/10/14 shows no SR and Ahrytimias. Carotid Artery Test from 03/24/14 Shows occluded R internal carotid aretery Problem Syncope and collapse (456480106) Syncope and collapse (R55) 2015 Active confirmed bia-Syncope and collapse Problem Impaired fasting glucose (500042116) Impaired fasting glucose (R73.01) 2015 Active confirmed bia-Impaired fasting glucose Problem Vitamin D deficiency (83735399) Vitamin D deficiency (E55.9) 2016 Active confirmed bia-Vitamin D deficiency Problem Dyslipidemia (875807782) Dyslipidemia (E78.5) 2016 Active confirmed bia-Dyslipide blanco Problem Gastroesophageal reflux disease (803479262) GERD (gastroesophageal reflux disease) (K21.9) 2016 Active confirmed bia-GERD (gastroesopha geal reflux disease) Problem Abnormal mammogram (778542311) Abnormal mammogram (R92.8) 2015 Active confirmed bia-Abnormal mammogram Problem Insomnia (413073416) Insomnia (G47.00) 2016 Active confirmed bia-Insomnia Problem Age-related macular degeneration (disorder) (451721679) Macular degeneration (H35.30) 2015 Active confirmed bia-Macular degeneration Problem Chronic back pain (296627917) Chronic back pain (M54.9) 2015 Active confirmed bia-Chronic back pain Problem Azotemia (592719511) Azotemia (R79.89) 2016 Active confirmed bia-Azotemia Problem Vitamin B12 deficiency (non anemic) (88909257) Vitamin B 12 deficiency (E53.8) 2015 Active confirmed bia-Vitamin B 12 deficiency Problem 950844960 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) 2016 Active confirmed bia-Mixed disorder as reaction to stress (308.4) Problem Mononeuropathy of lower limb (760043835) Neuropathy of foot (G57.90) 2016 Active confirmed bia-Neuropath y of foot Problem Counseling (796249571) Counseling NOS (V65.40) (Z71.9) 2016 Active confirmed bia-Counselin g NOS (V65.40) Problem 394737310 Pacemaker (Z95.0) 2015 Active confirmed bia-Pacemaker (V45.01) Problem Hip joint pain (7895187235) Hip joint pain (M25.559) 2014 Active confirmed bia-Hip joint pain Problem Restless legs (00849019) Restless leg syndrome, controlled (G25.81) 2016 Active confirmed bia-Restless leg syndrome, controlled Problem Pre-procedure evaluation check (039069968) Preoperative clearance (Z01.818) 2015 Active confirmed bia-Preoperat antolin clearance Problem Hip pain (24740010) Hip pain (M25.559) 2015 Active confirmed bia-Hip pain Problem 6156542438647 Carotid artery stenosis, symptomatic (I65.29) 2015 Active confirmed bia-Carotid artery stenosis, symptomatic (433.10) Problem Carcinoma in situ of breast (380502853) Carcinoma in situ, lobular, breast, 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) 2015 Active confirmed bia-Carcinoma in situ, lobular, breast, left Problem Bone loss (661633725) Bone loss (M89.8X9) 2015 Active confirmed bia-Bone loss Problem 78887073 Restless legs syndrome (RLS) (G25.81) 2015 Active confirmed bia-RLS (restless legs syndrome) (333.94) Problem 319937927 Flea bite of multiple sites (W57.XXXA) 2015 Active confirmed bia-Flea bite of multiple sites (919.4) Problem 67372672 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 Active confirmed bia-Tympanic membrane disorder (384.9) Problem 763275509 Encounter for complete eye exam (Z01.00) 2015 [...] 06/26/2024 Encounters Encounter Location Date Provider Diagnosis [facility] [address] [facility] [address] [place] [address] 01/14/2024 Romulo Agbo Mixed hyperlipidemia E78.2 ; [...] and Encounter for tobacco use screening Z01.89 [facility] [address] [facility] [address] [place] [address] 01/17/2024 Sasha Cruz Encounter for genera l [...] disorders, unspecified Z13.30 and Medication management Z79.899 [facility] [address] [facility] [address] [place] [address] 02/20/2024 Romulo Agbo Chronic combined systolic (congestive) and diastolic (congestive) heart failure I50.42 ; Respiratory crackles at right lung base R09.89 ; Exertional shortness of breath R06.02 ; Hypertensive nephropathy I12.9 and Medication management Z79.899 [facility] [address] [place] [address] [address] [place] [address] 04/20/2024 Romulo Agbo [facility] [address] [place] [address] [address] [place] [address] 06/05/2024 Romulo Agbo Mixed hyperlipidemia E78.2 ; Hypertensive heart and chronic kidney disease with heart failure and stage 1 through stage 4 chronic kidney disease, or chronic kidney disease I13.0 ; Stage 3b chronic kidney disease N18.32 ; Physical exam Z00.00 ; Medication management Z79.899 and Body mass index (BMI) of 24.0 to 24.9 in adult Z68.24 [facility] [address] [facility] [address] [place] [address] 06/26/2024 Romulo Hernandez Restless legs syndro me [...] index (BMI) of 25.0-25.9 in adult Z68.25 [facility] [address] [facility] [address] [place] [address] 01/01/2024 Romulo Hernandez [facility] [address] [facility] [address] [place] [address] 03/23/2024 Romulo Hernandez Assessments Encounter Date Diagnosis [...] Insured Coverage Start Date Coverage End Date [facility] [address] [place] [address] [id number] Cary Schneider Self - patient is the [...]
--- OUTSIDE RECORDS SUMMARY | 2024-11-06 10:09 | XMS_ITS ---
Author Organization [facility] - [address] Address [address] [place] [address] Care Team Providers Care Track Template Maker Name Role Phone Romulo Hernandez M.D Primary Care Provider Unavailjayla JOEY BrarOD Unavailable [phone] JOSE HERMAN Unavailable [phone] REASON FOR VISIT TAVR @ [facility] Encounters Encounter Location Date Provider Diagnosis [facility] [address] [place] [address] 05/08/2024 JOSE HERMAN Plan Of Treatment No Information Progress Notes * Cary PIMENTEL ADOB: [birth year] (84 yo F)Acc No.[id number]:05/08/2024 Patient: Cary BROWN Provider: Uri HERMAN MD :1940 A ge:84 Y S ex:Female Date:05/08/2024 [facility] Pcp:Romulo Hernandez M.D Subjective: * Chief Complaints: * 1 . TAVR @ [facility]. * Medical History: Objective: * Vitals: Assessment: Plan: * Treatment: * * Electronic signature of ABY HERMAN MD, [facility] on 11/06/2024 at 11:08 AM EDT Sign off status: Pending * Provider: Uri HERMAN MD Date: 0 05/08/2024 Generated for Printi ng/Farachelg/eTransmitting on: 0 11/06/2024 11:08 AM EDT
--- OUTSIDE RECORDS SUMMARY | 2024-11-06 10:09 | XMS_ITS | Patient Health Record ---
Author Organization [facility] [employer], [facility] Address [address] [place] [address] Support Name Relationship Address Phone Cary Schneider Guarantor Unknown [phone] Reason For Referral No Information Plan Of Treatment No Information Insurance Providers Payer Name Payer Address Payer Phone Subscriber Number Group Number Insured Name Patient Relationship to Insured Coverage Start Date Coverage End Date [employer] [phone] [place], [place] [id number] Cray Schneider Self - patient is the insured Medical (General) History Surgical History Surgery Date(Month/Year) Appendectomy 02/11/2013
== END 2024-11-06 10:03 | disposition home or self-care (01) ==
LOC: CHSLAB 10:03
PROVIDERS: PCP Internal Medicine; Visit Provider Internal Medicine Nephrology
DX: R94.4 Abnormal results of kidney function studies (principal)
CPT/HCPCS: 99199

== ENCOUNTER 2024-11-23 11:52 | Outpatient (CLI) | payer MEDICARE, SELFPAY ==
--- OUTSIDE RECORDS SUMMARY | 2024-11-23 12:00 | XMS_ITS | Patient Health Record ---
Author Organization [facility] Address [address] [place] [address] Care Team Providers Care Multiple Games Dealer Name Role Phone Romulo Hernandez Primary Care Provider Sasha Cruz Unavailable [phone] Allergies No Known Allergies Results Component Value Reference Range Notes Vitamin D 25-Hydroxy Reviewed date:04/17/2024 08:37:42 AM Interpretation: Performing Lab:[facility], [facility], [address], Phone - [phone], Director - [id number] Ericka Notes/Report: VITAMIN D-25 44.26 20-120 NG/ML LIPID PANEL Reviewed date:04/17/2024 08:37:41 AM Interpretation: Performing Lab:[facility], [facility], [address], Phone - [phone], Director - [id number] Ericka Notes/Report: CHOLESTEROL, TOTAL 148 170-199 MG/DL [...] Reviewed date:04/17/2024 08:37:41 AM Interpretation: Performing Lab:[facility], [address] [facility] Phone - [phone], Director - [id number] Ericka Notes/Report: SODIUM 134 136-145 MMOL/L POTASSIUM [...] PANEL Reviewed date:01/09/2024 08:37:59 AM Interpretation: Performing Lab:[facility], [facility], [address], [facility], Phone - [phone], Director - [id number] Ericka Notes/Report: CHOLESTEROL, TOTAL 152 170-199 MG/DL [...] AM Interpretation: Performing Lab:[facility], [facility], [address], [facility], Phone - [phone], Director - [id number] Dianna Notes/Report: SODIUM 137 136-145 MMOL/L POTASSIUM [...] Date Status Vitamin D (Ergocalciferol) 1.25 MG (52141 UT) TAKE 1 CAPSULE BY MOUTH WEEKLY; Duration: 84 Active Omeprazole 40 MG TAKE 1 CAPSULE BY MO UTH ONCE DAILY 30 MINUTES BEFORE MORNING MEAL; Duration: 90 Active Multi For Her 50+ Ac tive Metoprolol Succinate ER 25 MG TAKE 1 TABLET BY MOUTH DAILY; Duration: 90 days Active Gabapentin 300 MG TAKE 1 CAPSULE BY MO UTH DAILY; Duration: 100 Active Lisinopril 20 MG TAKE 1 TABLET BY EARNESTINE TH ONCE DAILY; Duration: 100 Active Ambien 1 tablet at bedtime as needed Orally at bedtime 11/28/2016 Not-Taking rOPINIRole HCl ROPINIRole HCl 2MG, 1 Tablet Tablet two times daily # 180, 09/10/2016, Ref. x1. Active Oral two times daily; Duration: 90 days Not-Taking Rosuvastatin Calcium 20 MG TAKE 1 TABLET BY MOUTH ONCE DAILY; Duration: 100 days Active rOPINIRole HCl 2 MG TAKE 1 TABLET BY EARNESTINE TH TWICE DAILY; Duration: 100 days Active Immunizations Vaccine Route Administration [...] ZOSTER IM Intramuscular 10/14/2023 Administered Zoster (shingles) (82037) Unknown 02/08/2012 Administer ed Social History Tobacco [...] Notes Problem Malignant neoplasm of female breast (416362047) Malignant neoplasm of unspecified site of left female breast (C50.912) Active confirmed Problem Mixed hyperlipidemia (813164154) Mixed hyperlipidemia (E78.2) Active confirmed Problem Metabolic encephalopathy (51807697) Metabolic encephalopathy (G93.41) Active confirmed Problem Hypertensive heart failure (02316211) Hypertensive heart disease with heart failure (I11.0) Active confirmed Problem Acute combined systolic and diastolic heart failure (335929048701004) Acute combined systolic (congestive) and diastolic (congestive) heart failure (I50.41) Active confirmed Problem Chronic combined systolic and diastolic heart failure (988209817776415) 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) Active confirmed Problem Localized, primary osteoarthritis of the pelvic region and thigh (899383372) 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) Active confirmed Problem Arthralgia of the pelvic region and thigh (102936320) Pain in right hip (M25.551) Active confirmed Problem Hypertension (03447959) Hypertension (I10) 2015 Active confirmed bia-Hypertens ion Problem Hypothyroidism (45919884) Hypothyroidism, adult (E03.9) Active confirmed Problem Neuropathy (182449045) Neuropathy (G62.9) Active confirmed Problem Hyperlipidaemia (43551263) Hyperlipemia (E78.5) Active confirmed Problem Abnormal gait (78551079) Abnormal gait (R26.9) Active confirmed Problem Acute rhinosinusitis (509149357) Acute rhinosinusitis (J01.90) Active confirmed Problem History of heart valve repair with prosthesis (477863573136534) 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) Active confirmed Problem Osteoarthritis of hip (079662258) Osteoarthrosis, hip, localized (M16.9) Active confirmed Problem Hypertensive nephropathy (18724435) Hypertensive nephropathy (I12.9) Active confirmed Problem Nephrolithiasis (99079270) Nephrolithiasis (N20.0) Active confirmed Problem Localized, primary osteoarthritis of the pelvic region and thigh (454898778) 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) Active confirmed Problem Localized, primary osteoarthritis of the pelvic region and thigh (450123047) 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) Active confirmed Problem Bilateral caroti d bruits (R09.89) Active confirmed Problem Chronic kidney disease stage 3 (disorder) (434280616) CKD (chronic kidney disease) stage 3, GFR 30-59 ml/min (N18.3) Active confirmed Problem Parkinson disease (98290830) Parkinson disease (G20) Active confirmed Problem Localized, primary osteoarthritis of the shoulder region (073577816) 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) Active confirmed Problem Hypertensive heart AND chronic kidney disease with congestive heart failure (43913549704336) Hypertensive heart and chronic kidney disease with heart failure and stage 1 through stage 4 chronic kidney disease, or chronic kidney disease (I13.0) Active confirmed Problem Acute renal failure syndrome (19368604) Acute renal failure, unspecified acute renal failure type (N17.9) Active confirmed Problem Exudative age-related macular degeneration (020769413) Bilateral exudative age-related macular degeneration, 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) Active confirmed Problem Heart murmur (22990673) Murmur, cardiac (R01.1) Active confirmed Problem Heart valve regurgitation (disorder) (92813770) Leaky heart valve (I38) Active confirmed Problem History of right hip replacement (9519609159757912 ) Status post right hip replacement (Z96.641) Active confirmed Problem Carpopedal spasm (83593261) Carpopedal spasm (R29.0) Active confirmed Problem Lumbar spondylosis with myelopathy (disorder) (07627995) 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 Showed on Echo test done on 09-12-20 Problem Chronic kidney disease stage 4 (419753884) Stage 4 chronic kidney disease (N18.4) Active confirmed Problem History of malignant neoplasm of breast (429552663) Hx of breast cancer (Z85.3) Active confirmed Problem Chronic kidney disease stage 3A (disorder) (019554131) Stage 3a chronic kidney disease (CKD) (N18.31) Active confirmed Problem Hyperkalemia (99722911) Hyperkalemia (E87.5) 2016 Active confirmed bia-Hyperkale blanco Problem Sick sinus syndrome (96471221) Sick sinus syndrome (I49.5) 2015 Active confirmed Holter Monitor Report from 03/10/14 shows no SR and Ahrytimias. Carotid Artery Test from 03/24/14 Shows occluded R internal carotid aretery Problem Syncope and collapse (743907099) Syncope and collapse (R55) 2015 Active confirmed bia-Syncope and collapse Problem Impaired fasting glucose (957688148) Impaired fasting glucose (R73.01) 2015 Active confirmed bia-Impaired fasting glucose Problem Vitamin D deficiency (40253093) Vitamin D deficiency (E55.9) 2016 Active confirmed bia-Vitamin D deficiency Problem Dyslipidemia (654357862) Dyslipidemia (E78.5) 2016 Active confirmed bia-Dyslipide blanco Problem Gastroesophageal reflux disease (962503887) GERD (gastroesophageal reflux disease) (K21.9) 2016 Active confirmed bia-GERD (gastroesopha geal reflux disease) Problem Abnormal mammogram (530085508) Abnormal mammogram (R92.8) 2015 Active confirmed bia-Abnormal mammogram Problem Insomnia (369201700) Insomnia (G47.00) 2016 Active confirmed bia-Insomnia Problem Age-related macular degeneration (disorder) (316272663) Macular degeneration (H35.30) 2015 Active confirmed bia-Macular degeneration Problem Chronic back pain (522958543) Chronic back pain (M54.9) 2015 Active confirmed bia-Chronic back pain Problem Azotemia (571548027) Azotemia (R79.89) 2016 Active confirmed bia-Azotemia Problem Vitamin B12 deficiency (non anemic) (37029973) Vitamin B 12 deficiency (E53.8) 2015 Active confirmed bia-Vitamin B 12 deficiency Problem Acute stress disorder (12282988) Mixed disorder as reaction to stress (F43.0) 2016 Active confirmed bia-Mixed disorder as reaction to stress (308.4) Problem Mononeuropathy of lower limb (746384923) Neuropathy of foot (G57.90) 2016 Active confirmed bia-Neuropath y of foot Problem Counseling (142164452) Counseling NOS (V65.40) (Z71.9) 2016 Active confirmed bia-Counselin g NOS (V65.40) Problem Cardiac pacemaker in situ (556083878) Pacemaker (Z95.0) 2015 Active confirmed bia-Pacemaker (V45.01) Problem Hip joint pain (9093256695) Hip joint pain (M25.559) 2014 Active confirmed bia-Hip joint pain Problem Restless legs (65503462) Restless leg syndrome, controlled (G25.81) 2016 Active confirmed bia-Restless leg syndrome, controlled Problem Pre-procedure evaluation check (281903930) Preoperative clearance (Z01.818) 2015 Active confirmed bia-Preoperat antolin clearance Problem Hip pain (22058466) Hip pain (M25.559) 2015 Active confirmed bia-Hip pain Problem Carotid artery occlusion (586640162) Carotid artery stenosis, symptomatic (I65.29) 2015 Active confirmed bia-Carotid artery stenosis, symptomatic (433.10) Problem Carcinoma in situ of breast (863890835) Carcinoma in situ, lobular, breast, 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) 2015 Active confirmed bia-Carcinoma in situ, lobular, breast, left Problem Bone loss (940537819) Bone loss (M89.8X9) 2015 Active confirmed bia-Bone loss Problem Restless legs (01413568) Restless legs syndrome (RLS) (G25.81) 2015 Active confirmed bia-RLS (restless legs syndrome) (333.94) Problem Flea bite of multiple sites (W57.XXXA) 2015 Active confirmed bia-Flea bite of multiple sites (919.4) Problem Tympanic membrane disorder (71744977) Tympanic membrane disorder (H73.90) 2015 Active confirmed bia-Tympanic membrane disorder (384.9) Problem Comprehensive eye examination (procedure) (50886425) Encounter for complete eye exam (Z01.00) 2015 [...] 06/26/2024 Encounters Encounter Location Date Provider Diagnosis [facility] [address] [place] [address] [facility] [address] [place] [address] 01/14/2024 Romulo Agbo Mixed hyperlipidemia E78.2 ; [...] and Encounter for tobacco use screening Z01.89 [facility] [address] [facility] [address] [place] [address] 01/17/2024 Sasha Cruz Encounter for genera l [...] disorders, unspecified Z13.30 and Medication management Z79.899 [facility] [address] [facility] [address] [place] [address] 02/20/2024 Romulo Agbo Chronic combined systolic (congestive) and diastolic (congestive) heart failure I50.42 ; Respiratory crackles at right lung base R09.89 ; Exertional shortness of breath R06.02 ; Hypertensive nephropathy I12.9 and Medication management Z79.899 [facility] [address] [place] [address] [address] [place] [address] 04/20/2024 Romulo Agbo [facility] [address] [place] [address] [address] 06/05/2024 Romulo Agbo Mixed hyperlipidemia E78.2 ; Hypertensive heart and chronic kidney disease with heart failure and stage 1 through stage 4 chronic kidney disease, or chronic kidney disease I13.0 ; Stage 3b chronic kidney disease N18.32 ; Physical exam Z00.00 ; Medication management Z79.899 and Body mass index (BMI) of 24.0 to 24.9 in adult Z68.24 [facility] [address] [facility] [address] [place] [address] 06/26/2024 Romulo Agbo Restless legs syndro me (RLS) G25.81 ; [...] index (BMI) of 25.0-25.9 in adult Z68.25 [facility] [address] [facility] [address] [place] [address] 01/01/2024 Romulo Hernandez [facility] [address] [place] [address] 03/23/2024 Romulo Hernandez Assessments Encounter Date Diagnosis [...] X ray : Shoulder, right 07/29/2018 DEXA 05/24/2020 DEXA 04/18/2017 DEXA 01/14/2024 Carotid Ultrasound 03/12/2019 TSH+Free T4 04/18/2017 Lipid Panel 04/18/2017 Comp. Metabolic Panel (14) 04/18/2017 X ray : Chest (PA lateral) 02/20/2024 CBC w/ Diff 12/24/2019 CBC w/ Diff 05/19/2020 Comprehensive Metabolic Panel 05/19/2020 Comprehensive Metabolic Panel 08/25/2020 Comprehensive Metabolic Panel 12/15/2020 Comprehensive Metabolic Panel 01/31/2021 Comprehensive Metabolic Panel 02/18/2020 Hemoglobin A1c (Glycosylated) 12/24/2019 ECHO 01/31/2021 ECHO 08/25/2020 AAA (Abdominal Aortic Aneurysm) UltraSou nd 02/12/2019 Arterial Doppler Lower Extremity Bilater al 02/12/2019 Mammogram with Add Views & Breast US if needed 07/25/2017 Thyroid Panel With TSH 01/22/2018 Thyroid Panel With TSH 10/14/2017 Vitamin B12 and Folate 01/22/2018 Hemoglobin A1c 07/05/2023 Vitamin B12 12/19/2018 Vitamin B12 10/14/2017 Magnesium, Serum 12/19/2018 Vitamin D, 25-Hydroxy 04/10/2019 Vitamin D, 25-Hydroxy 04/30/2018 Vitamin D, 25-Hydroxy 10/13/2018 Vitamin D, 25-Hydroxy 12/21/2021 Vitamin D, 25-Hydroxy 01/14/2024 Lipid Panel 06/05/2024 Lipid Panel 10/14/2023 Lipid Panel 01/14/2024 Lipid Panel 07/05/2023 Lipid Panel 04/04/2023 Lipid Panel 08/01/2023 Lipid Panel 06/27/2022 Lipid Panel 09/28/2022 Lipid Panel 01/03/2023 Lipid Panel 09/20/2021 Lipid Panel 12/21/2021 Lipid Panel 03/26/2022 Lipid Panel 05/12/2021 Lipid Panel 01/22/2018 Lipid Panel 07/29/2018 Lipid Panel 04/30/2018 Lipid Panel 04/10/2019 Lipid Panel 10/13/2018 Lipid Panel 07/09/2019 Lipid Panel 10/14/2017 Comp. Metabolic Panel (14) 10/14/2017 Comp. Metabolic Panel (14) 04/10/2019 Comp. Metabolic Panel (14) 07/09/2019 Comp. Metabolic Panel (14) 07/29/2018 Comp. Metabolic Panel (14) 04/30/2018 Comp. Metabolic Panel (14) 01/22/2018 Comp. Metabolic Panel (14) 10/13/2018 Comp. Metabolic Panel (14) 08/21/2021 Comp. Metabolic Panel (14) 09/20/2021 Comp. Metabolic Panel (14) 05/12/2021 Comp. Metabolic Panel (14) 06/27/2022 Comp. Metabolic Panel (14) 03/26/2022 Comp. Metabolic Panel (14) 04/04/2023 Comp. Metabolic Panel (14) 12/21/2021 Comp. Metabolic Panel (14) 01/03/2023 Comp. Metabolic Panel (14) 09/28/2022 Comp. Metabolic Panel (14) 10/14/2023 Comp. Metabolic Panel (14) 07/05/2023 Comp. Metabolic Panel (14) 08/01/2023 Comp. Metabolic Panel (14) 01/14/2024 Comp. Metabolic Panel (14) 06/05/2024 Basic Metabolic Panel (8) 07/25/2023 Basic Metabolic Panel (8) 08/11/2021 Free Thyroxine + T4 10/14/2017 Mammogram: Ultrasound/additional mammo v iews if needed 01/14/2024 TSH+Free T4 01/03/2023 TSH+Free T4 12/21/2021 Vitamin D, 1,25 + 25-Hydroxy 01/22/2018 CBC w/diff 12/21/2021 CBC w/diff 07/25/2023 Lipid Panel 01/31/2021 Lipid Panel 02/18/2020 Lipid Panel 12/15/2020 Lipid Panel 08/25/2020 Lipid Panel 05/19/2020 Lipid Panel 12/24/2019 Vitamin D, 25-Hydroxy 12/24/2019 Vitamin D, 25-Hydroxy 02/18/2020 Insurance Providers Payer Name Payer Address Payer Phone Subscriber Number Group Number Insured Name Patient Relationship to Insured Coverage Start Date Coverage End Date [facility] [address] [place] [address] [id number] Cary Schneider Self - patient is the [...]
--- OUTSIDE RECORDS SUMMARY | 2024-11-23 12:01 | XMS_ITS | Patient Health Record ---
Author Organization [facility] Address [address] [place] [address] Support Name Relationship Address Phone Cary Schneider Guarantor Unknown [phone] Allergies No Known Allergies Reason For Referral No Information Medications Medication SIG (Take, Route, Frequency, Duration) Notes Start Date End Date Status Baclofen 5 MG 1 tablet Orally Three times a day; Duration: 30 days For Spasms Active Lidocaine 5 % 1 patch remove after 12 hours Externally Once a day; Duration: 30 days Non Acute Pain Active oxyCODONE-Acetaminophe n 5-325 MG 1 tablet as needed Orally every 4 hrs; Duration: 30 days Non Acute Pain Active Omeprazole 20 MG 2 capsules Orally Once a day; Duration: 30 day(s) GERD Active Aspirin 81 MG 1 capsule Orally Once a day; Duration: 30 day(s) Active Rosuvastatin Calcium 20 MG 1 tablet Orally Once a day; Duration: 30 day(s) Active Lisinopril 20 MG 1 tablet Orally Once a day; Duration: 30 days Active rOPINIRole HCl 2 MG 1 tablet Orally Once a day; Duration: 30 day(s) Restless Leg Syndrome Active Problems Problem Type SNOMED Code ICD Code Onset Dates Problem Status W/U Status Risk Notes Problem COVID-19 (913520525) COVID-19 (U07.1) Active confirmed Problem Cardiac pacemaker in situ (471433047) Presence of cardiac pacemaker (Z95.0) Active confirmed Problem Fracture of neck of femur (4118634) Fracture of unspecified part of neck of right femur, subsequent encounter for closed fracture with routine healing (S72.001D) Active confirmed Problem Recurrent falls (394185005) Repeated falls (R29.6) Active confirmed Problem Abnormal gait (99023939) Unspecified abnormalities of gait and mobility (R26.9) Active confirmed Problem Gastro-esophageal reflux disease without esophagitis (404940280) Gastro-esophagea l reflux disease without esophagitis (K21.9) Active confirmed Problem Essential hypertension (71574200) Essential (primary) hypertension (I10) Active confirmed Problem Restless legs syndrome (82458690) Restless legs syndrome (G25.81) Active confirmed Problem Hyperlipidemia (01692285) Hyperlipidemia, unspecified (E78.5) Active confirmed Problem Chronic anemia (822027368) Anemia in other chronic diseases classified elsewhere (D63.8) Active confirmed Plan Of Treatment No Information Insurance Providers Payer Name Payer Address Payer Phone Subscriber Number Group Number Insured Name Patient Relationship to Insured Coverage Start Date Coverage End Date [facility] [address] [address] [place] [phone] [id number] Cary Schneider Self - patient is the [...]
--- OUTSIDE RECORDS SUMMARY | 2024-11-23 12:01 | XMS_ITS | Patient Health Record ---
Author Organization [facility] - [address] Address [address] [place] [address] Care Team Providers Care Stencil Printer Name Role Phone Romulo Hernandez M.D Primary Care Provider Flavio HEART ANDRY Unavailable [phone] ATTDAREKAZULJOSE Unavailable [phone] Allergies No Known Allergies Results Component Value Reference Range Notes CAROTID ULTRASOUND Reviewed date:06/06/2024 10:05:10 AM Interpretation: Performing Lab: Notes/Report: Echocardiogram Reviewed date:03/12/2024 03:29:44 PM Interpretation: Performing Lab: Notes/Report: CMP Reviewed [...] 0.5-2.7 10E3/uL ABSOULTE MONOCYTES 0.4 0.2-1.0 10E3/uL BMI Counselling Reviewed date:04/15/2024 05:28:45 PM Interpretation:undefined Performing Lab: Notes/Report: undefined BP Check Reviewed date:04/15/2024 05:28:42 PM Interpretation:undefined Performing Lab: Notes/Report: undefined Fall Risk Assessment Reviewed date:04/15/2024 05:28:39 PM Interpretation:undefined Performing Lab: Notes/Report: undefined Tobacco Screening and Cessas izzy Reviewed date:04/15/2024 05:28:37 PM Interpretation:undefined Performing Lab: Notes/Report: undefined Bilateral Carotid Ultrasound Reviewed date:04/15/2024 03:48:20 PM Interpretation: Performing Lab: Notes/Report: Reason For Referral Reason A- LHC/OSC/DR. BELIA SOMMER Diagnosis 1 Acquired stenosis of aortic valve (I35.0) Referral Organization [facility] Referring Provider First Name ANDRY Referring Provider Last Name SLY Referring Provider Speciality Cardiology Referred Provider Specialty PCP General Notes Lizeth Cantu 2023 03:08:07 PM >[facility] AUTH #[id number] APPROVED FOR LHC/PCI WITH DR HERMAN FROM 03/10/24 TO 04/24/24 Referral Priority Routine Reason YANELY carotid us Diagnosis 1 Carotid stenosis, bi lateral (I65.23) Referral Organization [facility] Referring Provider First Name JOSE Referring Provider Last Name BATSHEVA Referring Provider Speciality Cardiology Referred Provider Specialty PCP General Notes Marie Stover 1 06/01/2023 10:54:23 AM >[place] [id number] Decision ID #: [id number] Referral Priority Stat Referral Appointment Date 04/07/2024 Reason NR-pacer ck Diagnosis 1 Syncope and collapse (R55) Referral Organization [facility] Referring Provider First Name ANDRY Referring Provider Last Name SLY Referring Provider Speciality Cardiology Referred Provider Specialty Cardiology General Notes Jose Hunt 03:42:39 PM >As per [facility] ,Pt has active Coverage from 04/29/2024 ,has a PPO Plan, Auth Initiated in [facility] for CPT 31516 ,51829 ,66553 ,49056 ,97372 ,56226 Shows that No Auth is REquired under Decision ID #: [id number]. Referral Priority Routine Referral Appointment Date 06/19/2024 Reason A tavr consult with dr. perez Diagnosis 1 SEVERE AORTIC STENOS IS (I35.0) Referral Organization [facility] [place] Referring Provider First Name ANDRY Referring Provider Last Name SLY Referring Provider Speciality Cardiology Referred Provider Cynthia Perez Referred Provider Specialty Cardiac Surg rohan General Notes Marie Stover 1 05/20/2023 12:12:10 PM >[facility] VERIFIED ACTIVE, AUTH PENDING PCP, Marie Stover 03/23/2024 03:42:09 PM >PATIENT NEEDS TO SEE PCP FIRST, THEY WILL SEND ONCE DONE, Marie Stover 03/31/2024 09:44:12 AM >PATIENT HAS APPT WITH PCP 04/16Ck Brandy 04/16/2024 07:59:18 AM >REFAXED TO PCP, Marie Stover 04/23/2024 10:26:18 AM >2ND REQUEST SENT, Marie Stover 2024 10:32:52 AM >RESENT 2ND REQUEST, Marie Stover 05/04/2024 09:54:23 AM >AUTH APPROVED [id number], 04/30-10/27/24 Referral Priority Routine Medications Medication SIG [...] (I35.0) Active confirmed Problem Sinus node dysfunction (25835317) Arrhythmia, sinus node (I49.5) Active confirmed Problem Accelerated essentia l hypertension (56393159) Accelerated essential hypertension (I10) Active confirmed Problem 33764574 Symptomatic bradycardia (R00.1) Active confirmed Problem Atherosclerotic hear t disease of citizen potawatom[place] coronary artery without angina pectoris (752942888924089) 2-vessel coronary artery disease (I25.10) Active confirmed Problem Aortic valve disorde r (8700203) Acquired stenosis of aortic valve (I35.0) Active confirmed Problem 378816309 Carotid stenosis , bilateral (I65.23) Active confirmed Problem Hyperlipoproteinemia (2245331) Acquired hyperlipoproteinemia (E78.5) Active confirmed Problem 042707406 SEVERE AORTIC STENOSIS (I35.0) Active confirmed Problem Hyperlipidemia (95766790) Hyperlipidemia, unspecified (E78.5) 2015 Active confirmed Asaf-447 667- Problem Atherosclerotic hear t disease of citizen [place] coronary artery without angina pectoris (931185510633501) Atherosclerotic heart disease of citizen [place]aw[place] coronary artery without angina pectoris (I25.10) 2015 Active confirmed Asaf-447 667- Problem Bradycardia (68545256) Bradycardia, unspecified (R00.1) 2015 Active confirmed Asaf-447 667-Sym ptomati c Problem Syncope and collapse (091647679) Syncope and collapse (R55) 2015 Active confirmed Asaf-447 667- Problem Cardiac pacemaker in situ (676002079) Presence of cardiac pacemaker (Z95.0) 2015 Active confirmed Asaf-447 667-Med tronic Dual Chamber - Advisa A2DR01 (MRI SAFE) S# [id number] [facility] 10-22-14 , has 5076 Leads. Vital [...] N/A Encounters Encounter Location Date Provider Diagnosis [facility] [place] [place] [address] 12/20/2023 ANDRY MIRYALA [facility] [address] [place] [address] 03/18/2024 JOSE ATTANTI [facility] [place] [place] [address] 03/20/2024 ANDRY MIRYALA [facility] [address] [place] [address] 05/08/2024 JOSE ATTANTI [facility] [place] [place] [address] 06/19/2024 ANDRY MIRYALA [facility] [place] [place] [address] 09/18/2024 ANDRY MIRYALA [facility] [place] [place] [address] 03/10/2024 ANDRY MIRYALA [facility] [place] [place] [address] 03/10/2024 ANDRY MIRYALA Accelerated essentia l hypertension I10 ; Acquired stenosis of aortic valve I35.0 ; Acquired hyperlipoproteinemia E78.5 ; SEVERE AORTIC STENOSIS I35.0 and Atherosclerotic heart disease of citizen [place] coronary artery without angina pectoris I25.10 [facility] [place] [place] [address] 03/13/2024 ANDRY MIRYALA Accelerated essentia l hypertension I10 [facility] [place] [place] [address] 04/07/2024 JOSE ATTANTI [facility] [place] [place] [address] 04/15/2024 JOSE ATTANTI SEVERE AORTIC STENOSIS I35.0 ; Carotid stenosis, bilateral I65.23 ; Presence of cardiac pacemaker Z95.0 ; Atherosclerotic heart disease of citizen [place] coronary artery without angina pectoris I25.10 and Hyperlipidemia, unspecified E78.5 [facility] [place] [place] [address] 04/07/2024 ANDRY MIRYALA [facility] [place] [address] 03/10/2024 ANDRY MIRYALA [facility] [place] [place] [address] 03/10/2024 ANDRY MIRYALA Encounter for other specified surgical aftercare Z48.89 [facility] [place] [place] [address] 03/12/2024 ANDRY MIRYALA Accelerated essentia l hypertension I10 and SEVERE AORTIC STENOSIS I35.0 [facility] [place] [place] [address] 03/13/2024 ANDRY MIRYALA [facility] [place] [place] [address] 03/18/2024 ANDRY MIRYALA [facility] [place] [place] [address] 03/20/2024 ANDRY MIRYALA [facility] [place] [place] [address] 03/24/2024 ANDRY MIRYALA [facility] [place] [place] [address] 03/31/2024 JOSE ATTANTI Carotid stenosis, bilateral I65.23 [facility] [address] [place] [address] 05/04/2024 ANDRY MIRYALA [facility] [place] [place] [address] 06/03/2024 ANDRY MIRYALA [facility] [place] [address] 08/20/2024 ANDRY MIRYALA [facility] [place] [address] 10/21/2024 ANDRY MIRYALA Assessments Encounter Date Diagnosis [...] Z95.0) 04/15/2024 Atherosclerotic hear t disease of citizen potaw[place] coronary artery without angina pectoris (ICD-10 - I25.10) 03/10/2024 SEVERE AORTIC STENOS IS (ICD-10 - I35.0) Severe CKD 03/10/2024 Atherosclerotic hear t disease of citizen [place] coronary artery without angina pectoris (ICD-10 - I25.10) [facility]-[id number]- Severe CKD 04/15/2024 Hyperlipidemia, unspecified (ICD-10 - E78.5) 03/10/2024 Other 1. Pleasant female patient with [...] surgeon consult, has had CT TAVR and [facility] which were all reviewed. Will follow-up post TAVR. Carotid stenosis: Carotid ultrasound reviewed showed moderate stenosis right ICA. Continue on aspirin. Hypertension: Continue current management and continue to monitor elevated today. CAD: [facility] reviewed continue to follow-up with primary hat former. Thank you so much for including us [...] Insured Coverage Start Date Coverage End Date [facility] [address] [address] [place], [place] [id number] Cary Schneider Self - patient is the [...] Bradycardia, unspecified Atherosclerotic heart diseas e of citizen [place] coronary artery without angina pectoris Essential (primary) hypertension Hyperlipidemia, unspecified Surgical History Surgery Date(Month/Year) appendectomy cardiac pacemaker lumpectomy, left breast Right Hip replacement 09/2021 [facility]- REFER FOR TAVR 11/20/24 Hospitalization History Reason Date(Month/Year) [facility] - Fall, right hip fracture 09/2021
--- OUTSIDE RECORDS SUMMARY | 2024-11-23 12:01 | XMS_ITS ---
Author Organization [facility] Address [address] [place] [address] Care Team Providers Care Customer Experience Specialist Name Role Phone Mary KHAN M.D, Romulo Primary Care Provider Unavail able Nataliia Brand Unavailable Unavailable Vanna Morel Unavailable [phone] Allergies No Known Allergies REASON FOR VISIT [...] Location Date Provider Diagnosis [facility] [address] [place] [address] 06/05/2023 Vanna Morel Nausea with vomiting , [...] Notes * MARGARITOCHETDOB: 8 (84 yo F)Acc No.[id number]:06/05/2023 Progress Notes Patient: CHET BROWN Provider: Marcus Morel DO :1940 A ge:83 Y S ex:Female Date:06/05/2023 Address:[address] [place] [address] Pcp:Romulo Hernandez MD, M.D Subjective: * Chief [...] rn * Billing Information: * Visit Code: 49573 Office Visit, Est Pt., Level 3. * Procedure Codes: * Electronic signature of Vanna Morel DO on 11/23/2024 at 01:01 PM EDT Sign off status: Pending * Provider: Marcus Morel DO Date: 06/05/2023 Generated for Alona rosa/Angela/Paulieitting on: 0 11/23/2024 01:01 PM EDT History and Physical Notes * [...]
--- OUTSIDE RECORDS SUMMARY | 2024-11-23 12:01 | XMS_ITS | Patient Health Record ---
Author Organization [facility] Address [address] [place] [address] Care Team Providers Care Orthopedic Shoes Salesperson Name Role Phone Mary KHAN M.D, Romulo [...] Risk Notes Problem Diverticular disease of colon (737146231) Diverticulosis of large intestine without perforation or abscess without bleeding (K57.30) Active confirmed Problem Residual hemorrhoidal skin tags (56058959) Residual hemorrhoidal skin tags (K64.4) Active confirmed Problem Nausea and vomiting (53161923) Nausea with vomiting, unspecified (R11.2) Active confirmed Problem History of polyp of colon (situation) (414817063) Personal history of colonic polyps (Z86.010) Active confirmed Problem Colon cancer screening (372704851) Screening Colon Cancer (Z12.11) Active confirmed Problem Dysphagia (08209682) Dysphagia (R13.10) Active confirmed Plan Of Treatment Pending Test Test Name Order Date COLONOSCOPY 07/25/2022 EGD 07/25/2022 US abdomen, limited to RUQ 07/25/2022 Insurance Providers Payer Name Payer Address Payer Phone Subscriber Number Group Number Insured Name Patient Relationship to Insured Coverage Start Date Coverage End Date [facility] [address] [place] [address] [id number] ER [id number] CHET PIMENTEL Self - patient is the insured Medical (General) History Medical History History ICD Code melanoma hypertension pacemaker AF Hyperlipidemia Surgical History Surgery Date(Month/Year) melanoma cancer cardiac pacemeker EGD 07/2022 COLONOSCOPY 07/2022
--- OUTSIDE RECORDS SUMMARY | 2024-11-23 12:01 | XMS_ITS ---
Author Organization [facility] - [address] Address [address] [place] [address] Care Team Providers Care Manager Mission Name Role Phone Romulo Hernandez M.D Primary Care Provider ANDRY Stephens Unavailable [phone] REASON FOR VISIT CARELINK (PACEMAKER) 3MTH F/U FROM HOME Encounters Encounter Location Date Provider Diagnosis [facility] [place] [address] [facility] [address] [place] [address] 06/19/2024 ANDRY HEART Plan Of Treatment No Information Progress Notes * Cary PIMENTEL ADOB: [birth year] (84 yo F)Acc No.[id number]:06/19/2024 Patient: Cary BROWN Jason Provider: Pablo HEART MD :1940 A ge:84 Y S ex:Female Date:06/19/2024 Address[address] [facility] Pcp:Romulo Hernandez M.D Subjective: * Chief Complaints: * 1 . CARELINK (PACEMAKER) 3MTH F/U FROM HOME. * Medical History: Objective: * Vitals: Assessment: Plan: * Treatment: * * Electronic signature of ASHA HEART MD,[facility] on 11/23/2024 at 01:01 PM EDT Sign off status: Pending * Provider: Pablo HEART MD Date: 0 06/19/2024 Generated for Printi ng/Farachelg/eTransmitting on: 0 11/23/2024 01:01 PM EDT
--- OUTSIDE RECORDS SUMMARY | 2024-11-23 12:01 | XMS_ITS ---
Author Organization [facility] - [address] Address [address] [place] [address] Care Team Providers Care Delimber Operator Name Role Phone Romulo Hernandez M.D Primary Care Provider ANDRY Stephens Unavailable [phone] REASON FOR VISIT CARELINK (PACEMAKER) 3MTH F/U FROM HOME Encounters Encounter Location Date Provider Diagnosis [facility] [place] [address] [place] [address] 09/18/2024 ANDRY HEART Plan Of Treatment No Information Progress Notes * Cray PIMENTEL ADOB: [birth year] (84 yo F)Acc No.[id number]:09/18/2024 Patient: Cary BROWN Jason Provider: Pablo HEART MD :1940 A ge:84 Y S ex:Female Date:09/18/2024 Address:[address] [facility] Pcp:Romulo Hernandez M.D Subjective: * Chief Complaints: * 1 . CARELINK (PACEMAKER) 3MTH F/U FROM HOME. * Medical History: Objective: * Vitals: Assessment: Plan: * Treatment: * * Electronic signature of ASHA HEART MD,[facility] on 11/23/2024 at 01:01 PM EDT Sign off status: Pending * Provider: Pablo HEART MD Date: 09/18/2024 Generated for Printi ng/Farachelg/eTransmitting on: 11/23/2024 01:01 PM EDT
--- OUTSIDE RECORDS SUMMARY | 2024-11-23 12:01 | XMS_ITS | Patient Health Record ---
Author Organization [facility] Address [address] [place], [place] [address] Care Team Providers Care Sewing Machine Operator Name Role Phone Romulo Hernandez MD Primary Care Provider Flavio ACOSTA, Unavailable [phone] Allergies No Known Allergies Reason For Referral No Information Medications Medication SIG (Take, Route, Frequency, Duration) Notes Start Date End Date Status PreserVision AREDS 2 - as directed Orally Active Vitamin D3 1.25 MG (08898 UT) 1 capsule Orally Active Lisinopril 20 [...] Status W/U Status Risk Notes Problem Nephrolithiasis (71720579) Nephrolithiasis (N20.0) Active confirmed Problem Chronic kidney disease stage 3A (050614686) Stage 3a chronic kidney disease (N18.31) Active [...] Insured Coverage Start Date Coverage End Date [facility] [address] [address] [place] [address] [id number] CHET PIMENETL Self - patient is the insured Medical (General) History Medical History History ICD Code Pacemaker/ defibrillator Breast cancer Surgical History Surgery Date(Month/Year) Pacemaker placement 2017 Radiation and lumpectomy 2017
--- OUTSIDE RECORDS SUMMARY | 2024-11-23 12:01 | XMS_ITS ---
Author Organization [facility] - [address] Address [address] [place] [address] Care Team Providers Care Contracts Advisor Name Role Phone Romulo Hernandez M.D Primary Care Provider Unavailjayla JOEY BrarOD Unavailable [phone] JOSE HERMAN Unavailable [phone] REASON FOR VISIT TAVR @ [facility] Encounters Encounter Location Date Provider Diagnosis [facility] [address] [place] [address] 05/08/2024 JOSE HERMAN Plan Of Treatment No Information Progress Notes * Cary PIMENTEL ADOB: [birth year] (84 yo F)Acc No.[id number]:05/08/2024 Patient: Cary BROWN Provider: Uri HERMAN MD :1940 A ge:84 Y S ex:Female Date:05/08/2024 [facility] [facility] Pcp:Romulo Hernandez M.D Subjective: * Chief Complaints: * 1 . TAVR @ [facility]. * Medical History: Objective: * Vitals: Assessment: Plan: * Treatment: * * Electronic signature of ABY HERMAN MD, [facility] on 11/23/2024 at 01:01 PM EDT Sign off status: Pending * Provider: Uri HERMAN MD Date: 0 05/08/2024 Generated for Printi ng/Farachelg/eTransmitting on: 11/23/2024 01:01 PM EDT
--- OUTSIDE RECORDS SUMMARY | 2024-11-23 12:02 | XMS_ITS | Patient Health Record ---
Author Organization [facility] Address [address] [place] [address] Support Name Relationship Address Phone Cary Schneider Guarantor Unknown [phone] Reason For Referral No Information Plan Of Treatment No Information Insurance Providers Payer Name Payer Address Payer Phone Subscriber Number Group Number Insured Name Patient Relationship to Insured Coverage Start Date Coverage End Date [facility] [phone] [place], [place] [id number] Cary Schneider Self - patient is the insured Medical (General) History Surgical History Surgery Date(Month/Year) Appendectomy 02/11/2013
[2024-11-23 12:33] LABS: Anion Gap 5 mmol/L (4-12); Blood Urea Nitrogen 33 mg/dL (7-17); Calcium 9.0 mg/dL (8.4-10.2); Carbon Dioxide 27 mmol/L (22-30); Chloride 102 mmol/L (98-107); Estimated Glomerular Filt Rate 25; Glucose 112 mg/dL (65-110); Osmolality Calculated 286 mOsm/kg (285-295); Potassium 5.7 mmol/L (3.4-5.0); Sodium 134 mmol/L (137-145)
[2024-11-23 12:43] LABS: NT Pro B Type Natriuretic Pept 1140 pg/mL (19.9-100)
== END 2024-11-23 11:53 | disposition home or self-care (01) ==
LOC: CHSLAB 11:54
PROVIDERS: PCP Internal Medicine; Visit Provider Internal Medicine
DX: N18.32 Chronic kidney disease, stage 3b (principal); I50.42 Chronic combined systolic (congestive) and diastolic (congestive) heart failure
CPT/HCPCS: 36415; 80048; 83880

== ENCOUNTER 2025-01-01 18:22 | Inpatient (IN) | payer MEDICARE, SELFPAY ==
--- OUTSIDE RECORDS SUMMARY | 2012-06-02 08:34 | XMS_ITS | Continuity of Care Document ---
Author Organization [facility] Address [address] [place] [address] Phone Care Team Providers Care Plant Ecologist Name Role Phone Pascual Yuen MD Unavailable Unavailable Medications Medication Instructions Dosage Effective Dates (start - stop) Status Comments meloxicam 7.5 mg tablet take 1 tablet by oral route every day 7.5 MG - Active Spiriva with HandiHaler 18 mcg & inhalation capsules inhale 1 capsule by inhalation route every day - Active omeprazole 20 mg capsule,delayed release as needed - Active fluoxetine 20 mg Cap Take once daily - Act antolin lisinopril 5 mg Tab Take once daily - Acti ve triamterene-hydrochlo rothiazide 75 mg-50 mg Tab Take once daily - Active Procedures Procedure Date ASC Facility Charge No Burn, Fall, Wrong Event, Or Hospital Transfer No ANNA Order [facility]gi End[facility]; W/bx 1/mx Offic/outpt E&m Estab Mod-hi 2 13 Colorectal Ca Scrn Not Hi Risk 12 ASC Facility Charge Advance Directives Directive Yes / No Effective Date File Name No Information Encounters Encounter Description Practice Location Reason(s) For Visit Diagnoses Date Provider Providers Copied on [facility]counter [facility], [address] [place] [address], [place], [place], [id number] tel:[phone] [facility] No Information 3 Wilfrid Garner. [address] [place] [address], [id number], [place]. tel:[phone] [facility], [address] [place] [address], [id number] tel:[phone] [facility] No Information 3 [facility]. [address] [place] [address], [id number], [place]. tel:[phone] Referring Provider: Pascual Novak, [address] [place] [address], [id number] . tel:[phone] [facility], [address] [place] [address], [id number] tel:[phone] [facility] Gastric polypDysphagi aNeop, bng, small intestine 3 Wilfrid Garner. [address] [place] [address], [id number], [place]. tel:[phone] Referring Provider: Fan CONDON C, [address] [facility], [place], [address]. tel:[phone] Offic/outpt E&m Estab Mod-hi 2 [facility], [address] [place] [address], [id number] tel:[phone] [facility] Arthritis, unspecified siteDysphagia 3 Wilfrid Garner. [address] [place] [address], [id number], [place]. tel:[phone] Referring Provider: [place], [address] [place] [address], [place], [address]. tel:[phone] [facility], [address] [place] [address], [id number] tel:[phone] [facility] Diverticulosi sScreening for colon cancer 2 Wilfrid Garner. [address] [place] [address], [id number], [place]. tel:[phone] [facility], [address] [place] [address], [id number] tel:[phone] [facility] No Information 2 [facility]. [address] [place] [address], [id number], [place]. tel:[phone] Referring Provider: Pascual Novak, [address] [place] [address], [place], [address] . tel:[phone] [facility], [address] [place] [address], [place], [place], [id number] tel:[phone] [facility] No Information 2 Wilfrid Garner. [address] [place] [address], [id number], . tel:[phone] Family History Family Member Type Diagnosis Age At Onset No Information Payers Payer name Insurance type Covered republican ID Authoriza tion(s) Medicare MB [id number] Social History Type Description Quantity Date Captured Comments Sex Female Smoking Status No Information Chief Complaint And Reason For Visit No Information Reason For Referral Reason For Referral No Information History Of Present Illness Encounter Date Complaint History Of Prese nt Illness No Information Functional Status Date Functional Assessmen t No Information Instructions Date Instruction Additional Infor mation No Information Assessments Type Assessment Date No Information Patient Care Teams Name Effective Dates (start - stop) Status Members No Information
--- OUTSIDE RECORDS SUMMARY | 2012-06-02 08:34 | XMS_ITS | Continuity of Care Document ---
Author Organization [facility] Address [address] [place] [phone] Phone Care Team Providers Care Dog Bather Name Role Phone Pascual Yuen MD Unavailable [...] Diagnoses Date Provider Providers Copied on [facility]counter [facility], [address] [place] [address], [place], [place], [id number] tel:[phone] [facility] No Information 3 Wilfrid Garner. [address] [place] [address], [id number], [place]. tel:[phone] [facility], [address] [place] [address], [id number] tel:[phone] [facility] No Information 3 [facility]. [address] [place] [address], [id number], [place]. tel:[phone] Referring Provider: Pascual Novak, [address] [place] [address], [id number] . tel:[phone] [facility], [address] [place] [address], [id number] tel:[phone] [facility] Gastric polypDysphagi aNeop, bng, small intestine 3 Wilfrid Garner. [address] [place] [address], [id number], [place]. tel:[phone] Referring Provider: Fan CONDON C, [address] [facility], [place], [address]. tel:[phone] Offic/outpt E&m Estab Mod-hi 2 [facility], [address] [place] [address], [id number] tel:[phone] [facility] Arthritis, unspecified siteDysphagia 3 Wilfrid Garner. [address] [place] [address], [id number], [place]. tel:[phone] Referring [place]: [place], [address] [place] [address], [place], [address]. tel:[phone] [facility], [address] [place] [address], [id number] tel:[phone] [facility] Diverticulosi sScreening for colon cancer 2 Wilfrid Garner. [address] [place] [address], [id number], [place]. tel:[phone] [facility], [address] [place] [address], [id number] tel:[phone] [facility] No Information 2 [facility]. [address] [place] [address], [id number], [place]. tel:[phone] Referring Provider: Pascual Novak, [address] [place] [address], [place], [address] . tel:[phone] [facility], [address] [place] [address], [place], [place], [id number] tel:[phone] [facility] No Information 2 Wilfrid Garner. [address] [place] [address], [id number], . tel:[phone] Family History Family Member Type Diagnosis Age At Onset No Information Payers Payer name Insurance type Covered libertarian ID Authoriza tion(s) Medicare MB [id number] Social History Type Description Quantity Date Captured [...]
--- OUTSIDE RECORDS SUMMARY | 2015-01-23 08:47 | XMS_ITS | Continuity of Care Document ---
Author Organization [facility] Address [address] [place] [address] Phone Care Team Providers Care Trimmer Tailer Name Role Phone Filippo Philip DO Unavailable Unavailable Allergies, Adverse Reactions, Alerts Substance Reaction Status Criticality No Known Allergies Active No Inform ation Medications Medication Instructions Dosage Effective Dates (start - stop) Status Comments atorvastatin 10 mg tablet - Active diltiazem ER 120 mg capsule,extended release - Active fluoxetine 20 mg capsule - Active lisinopril 5 mg tablet - Active Xarelto 20 mg tablet - Active Spiriva with HandiHaler 18 mcg & inhalation capsules - Active triamterene 37.5 mg-hydrochlorothiaz ja 25 mg capsule - Active hydrocodone 5 mg-acetaminophen 325 mg tablet take 1 tablet by oral route every 6 hours as needed for pain 1.00 tablet - Active Tylenol-Codeine #3 300 mg-30 mg tablet take 1 tablet by oral route every 6 hours as needed - Active hydrocodone 5 mg-acetaminophen 325 mg tablet take 1 tablet by oral route every 6 hours as needed for pain 1.00 tablet - No Longer Active Procedures Procedure Date Xray Finger(s) Min 2 Views Offic/outpt E&m [facility] [place] Advance Directives Directive Yes / No Effective Date File Name No Information Encounters Encounter Description Practice Location Reason(s) For Visit Diagnoses Date Provider Providers Copied on Encounter Offic/outpt E&m [facility], [address], [place], [place], [id number], [place] tel:[phone] [facility] Sprain[facility]str ain (chief complaint) Finger injuryDislocation of left thumbMallet thumb of left hand Erin Sierra. [address] [facility] [address], [place], [id number] , [place]. tel:[phone] Referring Provider: [place], [address] [facility] [address], [place], [address] . tel:[phone] Family History Family Member Type Diagnosis Age At Onset No Information Payers Payer name Insurance type Covered democrat ID Authoriza tion(s) Medicare [place] [id number] Social History Type Description Quantity Date Captured Comments Alcohol Use Details Unknown Caffeine Use Details Unknown Tobacco Use Status No Information Smoking Status No Information Sex Female Vital Signs Date / Time: Height Weight BMI Pulse Rate Blood Pressure Temperature Respiratory Rate Body Surface Area Head Circumference Head Circ. Percentile Wt./Jd. Percentile BMI percentile Pulse Ox Inhaled Ox 2:36 PM 64.00 in 72.575 kg (160.00 lbs) 27.4 6 kg/m eter (2) 70 /min 125/50 mm[Hg] 98.00 F Chief Complaint And Reason For Visit From encounter dated '01/23/2015 13:47'. Sprain/strain (chief complaint). Description: Onset: 2 hours ago. Location: left hand (thumb(s)). Additional information: Pt states she fell after tripping on a curb and landed on her left thumb. Redness and swelling. Pain level at 5. Reason For Referral Reason For Referral No Information Plan Of Treatment Date Type Action Status Referral Ordered: Xray Finger(s) Min 2 Views ordered Future Order: Radiology Order Xr ay Finger(s) Min 2 Views ([id number]), Added on: New History Of Present Illness Encounter Date Complaint History Of Prese nt Illness Sprain/strain Onset: 2 hours a go. Location: left hand (thumb(s)). Additional information: Pt states she fell after tripping on a curb and landed on her left thumb. Redness and swelling. Pain level at 5. Functional Status Date Functional Assessmen t No Information Medications Administered Medication Instructions Dosage Effective Dates (start - stop) Status Comments hydrocodone 5 mg-acetaminophen 325 mg tablet take 1 tablet by oral route every 6 hours as needed for pain 1.00 tablet - No Longer Active Instructions Date Instruction Additional Infor mation splint left thumbfol lowup with orthopedic hand specialist in 1 week Related to Mallet thumb of left hand xray of left thumb M CP joint dislocated, no fracturejoint was reduced but still had decreased strength on extension Related to Dislocation of left thumb Assessments Type Assessment Date assessment Finger injury assessment Dislocation of left thumb assessment Mallet thumb of left hand Patient Care Teams Name Effective Dates (start - stop) Status Members No Information
--- OUTSIDE RECORDS SUMMARY | 2015-01-23 08:47 | XMS_ITS | Continuity of Care Document ---
Author Organization [facility] Address [address] [place] [address] Phone Care Team Providers Care Supervisor Metal Placing Name Role Phone Filippo Philip DO Unavailable [...] Finger(s) Min 2 Views Offic/outpt E&m [facility] Sever 5 Advance Directives Directive Yes / No Effective Date File Name No Information Encounters Encounter Description Practice Location Reason(s) For Visit Diagnoses Date Provider Providers Copied on Encounter Offic/outpt E&m [facility], [address], [place], [place], [id number], [place] tel:[phone] [facility] Sprain/str ain (chief complaint) Finger injuryDislocation of left thumbMallet thumb of left hand Erin Sierra. [address] [facility] [address], [place], [id number] , [place]. tel:[phone] Referring Provider: [place], [address] [facility] [address], [place], [address] . tel:[phone] Family History Family Member Type Diagnosis Age At Onset No Information Payers Payer name Insurance type Covered alliance party ID Authoriza tion(s) Medicare MB [id number] Social History Type Description Quantity Date Captured [...] Order Xr ay Finger(s) Min 2 Views ([id number]), Added on: New History Of Present Illness [...]
--- OUTSIDE RECORDS SUMMARY | 2015-11-30 05:01 | XMS_ITS | Continuity of Care Document ---
Author Organization [employer] [facility] Address [address] [place] [address] [address] [place] [address] Phone Care Team Providers Care Erp Developer Name Role Phone Simba PT, DPT, Elmer Unavailable Unavailab le Procedures Procedure Date THERAPEUTIC EXERCISES MANUAL THERAPY FUNC ACTIVITY Medications Name Dose Freq Route DOC Mar THERAPEUTIC EXERCISES MANUAL THERAPY FUNC ACTIVITY Medications Name Dose Freq Route DOC Mar THERAPEUTIC EXERCISES MANUAL THERAPY FUNC ACTIVITY Medications Name Dose Freq Route DOC Mar THERAPEUTIC EXERCISES MANUAL THERAPY Medications Name Dose Freq Route DOC Mar THERAPEUTIC EXERCISES MANUAL THERAPY Medications Name Dose Freq Route DOC Mar PT EVALUATION THERAPEUTIC EXERCISES MANUAL THERAPY HOT/COLD PACK ELECTRIC STIMULATION UNATT Carrying, Moving And Handling Objects-Cu rrent Carrying, Moving And Handling Objects-Go al Medications w/ Name Dose Freq NOT Route No Reason DOC Pain Assess Positive -02/05 DOC 2014 BMI Normal and DOC 18-64 yo=18.5-25.0 65 + yo=23.0-30.0 Future Fall Risk Positive 2+ Falls or 1 Fall w/ Injury RA DOC Scre ened for Fall Risk Plan of Care DOC Functional Outcome Assessmen t documented, deficits identified, treatment plan es THERAPEUTIC EXERCISES NEUROMUSCULAR RE-ED MANUAL THERAPY FUNC ACTIVITY HOT/COLD PACK ELECTRIC STIMULATION UNA Medications Name Dose Freq Route DOC Sep THERAPEUTIC EXERCISES NEUROMUSCULAR RE-ED MANUAL THERAPY FUNC ACTIVITY HOT/COLD PACK ELECTRIC STIMULATION UNATT Medications Name Dose Freq Route DOC August THERAPEUTIC EXERCISES NEUROMUSCULAR RE-ED MANUAL THERAPY FUNC ACTIVITY HOT/COLD PACK ELECTRIC STIMULATION UNA Medications Name Dose Freq Route DOC August THERAPEUTIC EXERCISES NEUROMUSCULAR RE-ED MANUAL THERAPY FUNC ACTIVITY HOT/COLD PACK ELECTRIC STIMULATION UNATT Medications Name Dose Freq Route DOC August THERAPEUTIC EXERCISES NEUROMUSCULAR RE-ED MANUAL THERAPY FUNC ACTIVITY HOT/COLD PACK ELECTRIC STIMULATION UNA Medications Name Dose Freq Route DOC August PT RE-EVALUATION THERAPEUTIC EXERCISES NEUROMUSCULAR RE-ED MANUAL THERAPY FUNC ACTIVITY HOT/COLD PACK ELECTRIC STIMULATION UNA Carrying, Moving And Handling Objects-Cu rrent Carrying, Moving And Handling Objects-Go al Medications Name Dose Freq Route DOC August THERAPEUTIC EXERCISES NEUROMUSCULAR RE-ED MANUAL THERAPY FUNC ACTIVITY HOT/COLD PACK ELECTRIC STIMULATION UNATT Medications Name Dose Freq Route DOC August THERAPEUTIC EXERCISES NEUROMUSCULAR RE-ED MANUAL THERAPY FUNC ACTIVITY HOT/COLD PACK ELECTRIC STIMULATION UNATT Medications Name Dose Freq Route DOC August THERAPEUTIC EXERCISES NEUROMUSCULAR RE-ED MANUAL THERAPY FUNC ACTIVITY HOT/COLD PACK ELECTRIC STIMULATION UNATT Medications Name Dose Freq Route DOC August THERAPEUTIC EXERCISES NEUROMUSCULAR RE-ED MANUAL THERAPY FUNC ACTIVITY HOT/COLD PACK ELECTRIC STIMULATION UNATT Medications Name Dose Freq Route DOC August THERAPEUTIC EXERCISES NEUROMUSCULAR RE-ED MANUAL THERAPY FUNC ACTIVITY HOT/COLD PACK ELECTRIC STIMULATION UNA Medications Name Dose Freq Route DOC Jul THERAPEUTIC EXERCISES NEUROMUSCULAR RE-ED MANUAL THERAPY FUNC ACTIVITY HOT/COLD PACK ELECTRIC STIMULATION UNATT Medications Name Dose Freq Route DOC Jul THERAPEUTIC EXERCISES NEUROMUSCULAR RE-ED MANUAL THERAPY FUNC ACTIVITY HOT/COLD PACK ELECTRIC STIMULATION UNA Medications Name Dose Freq Route DOC Jul THERAPEUTIC EXERCISES NEUROMUSCULAR RE-ED MANUAL THERAPY FUNC ACTIVITY HOT/COLD PACK ELECTRIC STIMULATION UNATT Medications Name Dose Freq Route DOC Jul THERAPEUTIC EXERCISES MANUAL THERAPY FUNC ACTIVITY HOT/COLD PACK ELECTRIC STIMULATION UNATT Medications Name Dose Freq Route DOC Jul THERAPEUTIC EXERCISES MANUAL THERAPY FUNC ACTIVITY HOT/COLD PACK ELECTRIC STIMULATION UNATT Medications Name Dose Freq Route DOC Jul THERAPEUTIC EXERCISES MANUAL THERAPY FUNC ACTIVITY HOT/COLD PACK ELECTRIC STIMULATION Medications Name Dose Freq Route DOC Jul THERAPEUTIC EXERCISES MANUAL THERAPY FUNC ACTIVITY HOT/COLD PACK ELECTRIC STIMULATION Medications Name Dose Freq Route DOC Jul THERAPEUTIC EXERCISES MANUAL THERAPY HOT/COLD PACK ELECTRIC STIMULATION Medications Name Dose Freq Route DOC Jul THERAPEUTIC EXERCISES MANUAL THERAPY HOT/COLD PACK ELECTRIC STIMULATION Medications Name Dose Freq Route DOC Jul THERAPEUTIC EXERCISES MANUAL THERAPY HOT/COLD PACK ELECTRIC STIMULATION Medications Name Dose Freq Route [facility] Jun THERAPEUTIC EXERCISES MANUAL THERAPY HOT/COLD PACK ELECTRIC STIMULATION Medications Name Dose Freq Route [facility] Jun PT EVALUATION THERAPEUTIC EXERCISES MANUAL THERAPY HOT/COLD PACK ELECTRIC STIMULATION Carrying, Moving And Handling Objects-Cu rrent Carrying, Moving And Handling Objects-Go al Medications Name Dose Freq Route [facility] Jun Pain Assess Positive [facility] 2014 BMI Normal and DOC 18-64 yo=18.5-25.0 65 + yo=23.0-30.0 No Falls or 1 Fall w/o Injury Screened f or Fall Risk Functional Outcome Assessmen t documented, deficits identified, treatment plan es PT RE-EVALUATION THERAPEUTIC EXERCISES MANUAL THERAPY FUNC ACTIVITY Self Care - Discharge Self Care - Goal Medications Name Dose Freq Route DOC Mar THERAPEUTIC EXERCISES MANUAL THERAPY FUNC ACTIVITY HOT/COLD PACK ELECTRIC STIMULATION UNA Medications Name Dose Freq Route DOC Feb THERAPEUTIC EXERCISES MANUAL THERAPY FUNC ACTIVITY HOT/COLD PACK ELECTRIC STIMULATION UNA Medications Name Dose Freq Route DOC Feb THERAPEUTIC EXERCISES MANUAL THERAPY FUNC ACTIVITY HOT/COLD PACK ELECTRIC STIMULATION UNA Medications Name Dose Freq Route DOC Feb THERAPEUTIC EXERCISES MANUAL THERAPY FUNC ACTIVITY HOT/COLD PACK ELECTRIC STIMULATION UNA Medications Name Dose Freq Route DOC Feb THERAPEUTIC EXERCISES MANUAL THERAPY FUNC ACTIVITY HOT/COLD PACK ELECTRIC STIMULATION UNA Medications Name Dose Freq Route DOC Feb THERAPEUTIC EXERCISES MANUAL THERAPY FUNC ACTIVITY HOT/COLD PACK ELECTRIC STIMULATION UNA Medications Name Dose Freq Route DOC Feb THERAPEUTIC EXERCISES MANUAL THERAPY FUNC ACTIVITY HOT/COLD PACK ELECTRIC STIMULATION UNA Medications Name Dose Freq Route DOC Jan THERAPEUTIC EXERCISES MANUAL THERAPY HOT/COLD PACK ELECTRIC STIMULATION UNA Medications Name Dose Freq Route DOC Jan PT EVALUATION THERAPEUTIC EXERCISES MANUAL THERAPY HOT/COLD PACK ELECTRIC STIMULATION UNA Self Care - Current Self Care - Goal Medications Name Dose Freq Route DOC Jan Pain Assess Positive DOC 2013 BMI Low F/U Plan DOC No Falls or 1 Fall w/o Injury Screened f or Fall Risk Functional Outcome Assessmen t documented, deficits identified, treatment plan es Advance Directives Directive Yes / No Effective Date File Name No Information Encounters Encounter Description Practice Location Reason(s) For Visit Diagnoses Date Provider Providers Copied on Encounter [facility], [address] [address], [place], [place], [id number], tel:[phone] Mellen No Information 6 Cottrell Elmer. [address] [place], [address], . tel: [phone] [facility], [address], [place], [place], [id number], tel:[phone] Mellen No Information 5 Cottrell Elmer. [address] [place], [address], . tel: [phone] Referring Provider: Nilesh Novak, [address] [facility], [place], [address]. [phone] [facility], [address], [place], [place], [id number], tel:[phone] Mellen No Information 5 Cottrell Elmer. [address] [place], [address], . tel: [phone] Referring Provider: Nilesh Novak, [address] [place], [address]. tel:[phone] [facility], [address] [place] [address], [id number], tel:[phone] Mellen No Information 5 Cottrell Elmer. [address] [place], [address], . tel: [phone] Referring Provider: Nilesh Novak, [address] [place], [address]. tel: [phone] [facility], [address], [place], [place], [id number], [place] tel:[phone] Mellen No Information 0 9201 [address] Cottrell Elmer. [facility], [address], . tel: [phone] Referring Provider: Nilesh Novak, [address], [place], [address]. tel: [phone] [facility], [address], [place], [place], [id number], [place] tel:[phone] Mellen No Information Mar-0 4- 5 Cottrell Elmer. [facility], [address], [place]. tel: [phone] Referring Provider: Nilesh Novak, [address], [place], [address]. tel: [phone] [facility], [address], [place], [place], [id number], [place] tel:[phone] Mellen Dislocation of metacarpophalangea l joint of left thumb, subsPain in left finger(s)Stiffness of left hand, not elsewhere classified Mar-0 [address]201 [address] Cott[address] Elmer. [place], [address], [place]. tel: [phone] Referring Provider: Nilesh Novak, [address], [place], [address]. tel: [phone] [facility], [address], [place], [place], [address], [place] tel:[phone] Mellen No Information 5 5 Cottrell Elmer. [facility], [address], [place]. tel: [phone] Referring Provider: Benson Carpio, [address] [facility], [place], [address]. tel: [phone] [facility], [address], [place], [place], [address], tel:[phone] Mellen No Information August-2 2-201 5 Cottrell Elmer. [facility] [place], [address], [place]. tel: [phone] Referring Provider: Benson Carpio, [address] [facility], [place], [address]. tel:[phone] [facility], [address], [place], [place], [address], tel:[phone] Mellen No Information August-2 0-201 5 Cottrell Elmer. [facility] [place], [address], [place]. tel: [phone] Referring Provider: Benson Carpio, [address] [facility], [place], [address]. tel:[phone] [facility], [address] [facility] [address] [facility], [place], [place], [id number], tel:[phone] Mellen No Information August- 8-201 5 Cottrell Elmer. [facility] [place], [address], [place]. tel: [phone] Referring Provider: Benson Carpio, [address] [place], [address]. tel:[phone] [facility], [address], [place], [place], [id number], tel:[phone] Mellen No Information August-1 5-201 5 Cottrell Elmer. [facility] [place], [address], [place]. tel: [phone] Referring Provider: Benson Carpio, [address] [facility], [place], [address]. tel:[phone] [facility], [address], [place], [place], [id number], tel:[phone] Mellen No Information August-1 3-201 5 Cottrell Elmer. [facility] [place], [address], . tel: [phone] Referring Provider: Benson Carpio, [address], [place], [address]. tel:[phone] [facility], [address], [id number], tel:[phone] Mellen No Information May-1 2-201 5 Cottrell Elmer. [facility] [place], [address], . tel: [phone] Referring Provider: Benson Carpio, [address], [place], [address]. tel:[phone] [facility], [address], [id number], tel:[phone] Mellen No Information May-0 8-201 5 Cottrell Elmer. [facility] [place], [address], . tel: [phone] Referring Provider: Benson Carpio, [address] [place], [address]. tel:[phone] [facility], [address], [id number], tel:[phone] Mellen No Information May-0 6-201 5 Cottrell Elmer. [facility] [place], [address], . tel: [phone] Referring Provider: Benson Carpio, [address] [place], [address]. tel:[phone] [facility], [address], [id number], tel:[phone] Mellen No Information May-0 1-201 5 Cottrell Elmer. [facility] [place], [address], . tel: [phone] Referring Provider: Benson Carpio, [address] [place], [address]. tel:[phone] [facility], [address], [place], [place], [address], [place] tel:[phone] Mellen No Information 5 Cottrell Elmer. [facility] [place], [address], [place]. tel: [phone] Referring Provider: Benson Carpio, [address], [place], [address]. tel: [phone] [facility], [address], [place], [place], [address], [place] tel:[phone] Mellen No Information 5 Cottrell Elmer. [facility] [place], [address], [place]. tel: [phone] Referring Provider: Benson Carpio, [address], [place], [address]. tel: [phone] [facility], [address], [place], [place], [address], [place] tel:[phone] Mellen No Information 5 Cottrell Elmer. [facility] [place], [address], [place]. tel: [phone] Referring Provider: Benson Carpio, [address], [place], [address]. tel: [phone] [facility], [address], [place], [place], [address], [place] tel:[phone] Mellen No Information 5 Cottrell Elmer. [facility] [place], [address], [place]. tel: [phone] Referring Provider: Benson Carpio, [address], [place], [address]. tel:[phone] [facility], [address], [place], [place], [address], [place] tel:[phone] Mellen No Information 6-201 5 Cottrell Elmer. [address] [place], [address], [place]. tel: [phone] Referring Provider: Benson Carpio, [address], [place], [address]. tel:[phone] [facility], [address] [facility] [facility], [place], [place], [id number], [place] tel:[phone] Mellen No Information Jul-1 5-201 5 Cottrell Elmer. [address] [place], [address], [place]. tel: [phone] Referring Provider: Benson Carpio, [address], [place], [address]. tel:[phone] [facility], [address], [place], [place], [address], [place] tel:[phone] Mellen No Information 0- 5 Helen Saeed. . Referring Provider: Benson Carpio, [address], [place], [address]. tel:[phone] [facility], [address] [facility], [place], [place], [address], [place] tel:[phone] Mellen No Information Jul-0 9201 5 Cottrell Elmer. [facility] [place], [address], [place]. tel: [phone] Referring Provider: Benson Carpio, [address], [place], [address]. tel:[phone] [facility], [address], [place], [place], [address], [place] tel:[phone] Mellen No Information 0 6- 5 Cottrell Elmer. [facility] [place], [address], [place]. tel: [phone] Referring Provider: Benson Carpio, [address], [place], [address]. tel:[phone] [facility], [address], [place], [place], [address], [place] tel:[phone] Mellen No Information Apr-0 2-201 5 Cottrell Elmer. [facility] [place], [address], [place]. tel: [phone] Referring Provider: Benson Carpio, [address], [place], [address]. tel:[phone] [facility], [address], [place], [place], [address], [place] tel:[phone] Mellen No Information Mar-3 1-201 5 Cottrell Elmer. [facility] [place], [address], [place]. tel: [phone] Referring Provider: Benson Carpio, [address], [place], [address]. [phone] [facility], [address], [place], [place], [address], [place] tel:[phone] Mellen No Information Mar-2 7-201 5 Cottrell Elmer. [facility] [place], [address], [place]. tel: [phone] Referring Provider: Benson Carpio, [address] [facility], [place], [address]. tel:[phone] [facility], [address], [place], [place], [address], [place] tel:[phone] Mellen Partial Tear Of Rotator Cuff Mar-2 5-201 5 Cottrell Elmer. [facility] [place], [address], [place]. tel: [phone] Referring Provider: Benson Carpio, [address] [facility], [place], [address]. tel:[phone] [facility], [address], [place], [place], [address], [place] tel:[phone] Mellen No Information Dec-0 8-201 4 Cottrell Elmer. [address] [place], [address], [place]. tel: [phone] Referring Provider: Benson Carpio, [address], [place], [address]. tel:[phone] [facility], [address], [id number], [place] tel:[phone] Mellen No Information 0 4 Cottrell Elmer. [address] [place], [address], [place]. tel: [phone] Referring Provider: Benson Carpio, [address], [place], [address]. tel:[phone] [facility], [address], [id number], [place] tel:[phone] Mellen No Information 4 Cottrell Elmer. [facility] [place], [address], [place]. tel: [phone] Referring Provider: Benson Carpio, [address], [place], [address]. tel:[phone] [facility], [address], [id number], [place] tel:[phone] Mellen No Information 3 4 Cottrell Elmer. [facility] [place], [address], [place]. tel: [phone] Referring Provider: Benson Carpio, [address], [place], [address]. tel:[phone] [facility], [address], [id number], [place] tel:[phone] Mellen No Information 2 4 Cottrell Elmer. [address] [place], [address], [place]. tel: [phone] Referring Provider: Benson Carpio, [address] [place], [address]. tel: [phone] [facility], [address], [place], [place], [address], [place] tel:[phone] Mellen No Information 0 6 4 Cottrell Elmer. [facility] [place], [address], . tel: [phone] Referring Provider: Benson Carpio, [address], [place], [address]. tel: [phone] [facility], [address], [place], [place], [id number], [place] tel:[phone] Mellen No Information 0 4 Cottrell Elmer. [facility] [place], [address], . tel: [phone] Referring Provider: Benson Carpio, [address], [place], [address]. tel:[phone] [facility], [address], [place], [place], [address], [place] tel:[phone] Mellen No Information 3 4 Cottrell Elmer. [address] [place] [address], [address], . tel: [phone] Referring Provider: Benson Carpio, [address], [place], [address]. tel: [phone] [facility], [address], [place], [place], [address], [place] tel:[phone] Mellen No Information 1 4 Cottrell Elmer. [facility] [place], [address], [place]. tel: [phone] Referring Provider: Benson Carpio, [address] [facility], [place], [address]. tel:[phone] [facility], [address], [place], [place], [id number], [place] tel:[phone] Bárbara Other specified disorders of bursae and tendons in shoulder regionPain in joint involving shoulder region 4 Simba Payne. [address] [place], [address], . tel:[phone] Referring Provider: Benson Carpio, [address] [place] [address], [place], [address]. tel:[phone] Family History Family Member Type Diagnosis Age At Onset No Information Payers Payer name Insurance type Covered libertarian ID Authoriza tion(s) [place] [id number] Social History Type Description Quantity Date Captured [...]
--- OUTSIDE RECORDS SUMMARY | 2015-11-30 05:01 | XMS_ITS | Continuity of Care Document ---
Author Organization [facility] Address [address] [place] [address] [address] [place] [address] Phone Care Team Providers Care Director Of Recruiting Name Role Phone Simba PT, DPT, Elmer [...] ELECTRIC STIMULATION Medications Name Dose Freq Route [facility] Jun THERAPEUTIC EXERCISES MANUAL THERAPY HOT/COLD PACK ELECTRIC STIMULATION Medications Name Dose Freq Route [facility] Jun PT EVALUATION THERAPEUTIC EXERCISES MANUAL THERAPY HOT/COLD PACK ELECTRIC STIMULATION Carrying, Moving And Handling Objects-Cu rrent Carrying, Moving And Handling Objects-Go al Medications Name Dose Freq Route [facility] Jun Pain Assess Positive [facility] 2014 BMI Normal and DOC 18-64 yo=18.5-25.0 [...] Diagnoses Date Provider Providers Copied on Encounter [facility], [address] [address], [place], [place], [id number], tel:[phone] [place] No Information 6 Cottrell Elmer. [address] [place], [address], . tel: [phone] [facility], [address], [place], [place], [id number], tel:[phone] [place] No Information 5 Cottrell Elmer. [address] [place], [address], . tel: [phone] Referring Provider: Nilesh Novak, [address] [facility], [place], [address]. [phone] [facility], [address], [place], [place], [id number], tel:[phone] [place] No Information 5 Cottrell Elmer. [address] [place], [address], . tel: [phone] Referring Provider: Nilesh Novak, [address] [place], [address]. tel:[phone] [facility], [address] [place] [address], [id number], tel:[phone] [place] No Information 5 Cottrell Elmer. [address] [place], [address], . tel: [phone] Referring Provider: Nilesh Novak, [address] [place], [address]. tel: [phone] [facility], [address], [place], [place], [id number], [place] tel:[phone] [place] No Information 0 9201 5 Cottrell Elmer. [facility] [place], [address], . tel: [phone] Referring Provider: Nilesh Novak, [address], [place], [address]. tel: [phone] [facility], [address], [place], [place], [id number], [place] tel:[phone] [place] No Information Mar-0 4- 5 Cottrell Lemer. [facility], [place], [address], [place]. tel: [phone] Referring Provider: Nilesh Novak, [address], [place], [address]. tel: [phone] [facility], [address], [place], [place], [id number], [place] tel:[phone] [place] Dislocation of metacarpophalangea l joint of left thumb, subsPain in left finger(s)Stiffness of left hand, not elsewhere classified Mar-0 2201 5 Cottrell Elmer. [facility], [place], [address], [place]. tel: [phone] Referring Provider: Nilesh Novak, [address], [place], [address]. tel: [phone] [facility], [address], [place], [place], [address], [place] tel:[phone] [place] No Information 5 5 Cottrell Elmer. [facility] [place], [address], [place]. tel: [phone] Referring Provider: Benson Carpio, [address] [facility], [place], [address]. tel: [phone] [facility], [address], [place], [place], [id number], tel:[phone] [place] No Information August-2 2-201 5 Cottrell Elmer. [facility] [place], [address], [place]. tel: [phone] Referring Provider: Benson Carpio, [address] [facility], [place], [address]. tel:[phone] [facility], [address] [facility] [address], [place], [place], [id number], tel:[phone] [place] No Information August-2 0-201 5 Cottrell Elmer. [facility] [place], [address], [place]. tel: [phone] Referring Provider: Benson Carpio, [address] [facility], [place], [address]. tel:[phone] [facility], [address] [facility], [place], [place], [id number], tel:[phone] [place] No Information August- 8-201 5 Cottrell Elmer. [facility] [place], [address], [place]. tel: [phone] Referring Provider: Benson Carpio, [address] [place], [address]. tel:[phone] [facility], [address] [facility], [place], [place], [id number], tel:[phone] [place] No Information August-1 5-201 5 Cottrell Elmer. [facility] [place], [address], [place]. tel: [phone] Referring Provider: Benson Carpio, [address] [facility], [place], [address]. tel:[phone] [facility], [address] [facility], [place], [place], [address], tel:[phone] [place] No Information August-1 3-201 5 Cottrell Elmer. [facility] [place], [address], . tel: [phone] Referring Provider: Benson Carpio, [address], [place], [address]. tel:[phone] [facility], [address], [id number], tel:[phone] [place] No Information May-1 2-201 5 Cottrell Elmer. [facility] [place], [address], . tel: [phone] Referring Provider: Benson Carpio, [address], [place], [address]. tel:[phone] [facility], [address], [id number], tel:[phone] [place] No Information May-0 8-201 5 Cottrell Elmer. [facility] [place], [address], . tel: [phone] Referring Provider: Benson Carpio, [address] [place], [address]. tel:[phone] [facility], [address], [id number], tel:[phone] [place] No Information May-0 6-201 5 Cottrell Elmer. [facility] [place], [address], . tel: [phone] Referring Provider: Benson Carpio, [address] [place], [address]. tel:[phone] [facility], [address], [id number], tel:[phone] [place] No Information May-0 1-201 5 Cottrell Elmer. [facility] [place], [address], . tel: [phone] Referring Provider: Benson Carpio, [address] [place], [address]. tel:[phone] [facility], [address], [place], [place], [address], [place] tel:[phone] [place] No Information 5 Cottrell Elmer. [facility] [place], [address], [place]. tel: [phone] Referring Provider: Benson Carpio, [address], [place], [address]. tel: [phone] [facility], [address], [place], [place], [address], [place] tel:[phone] [place] No Information 5 Cottrell Elmer. [facility] [place], [address], [place]. tel: [phone] Referring Provider: Benson Carpio, [address], [place], [address]. tel: [phone] [facility], [address], [place], [place], [address], [place] tel:[phone] [place] No Information 5 Cottrell Elmer. [facility] [place], [address], [place]. tel: [phone] Referring Provider: Benson Carpio, [address], [place], [address]. tel: [phone] [facility], [address], [place], [place], [address], [place] tel:[phone] [place] No Information 5 Cottrell Elmer. [facility] [place], [address], [place]. tel: [phone] Referring Provider: Benson Carpio, [address], [place], [address]. tel:[phone] [facility], [address], [place], [address], [place] tel:[phone] [place] No Information 6-201 5 Cottrell Elmer. [address] [place], [address], [place]. tel: [phone] Referring Provider: Benson Carpio, [address], [place], [address]. tel:[phone] [facility], [address] [facility], [place], [place], [address], [place] tel:[phone] [place] No Information Jul-1 5-201 5 Cottrell Elmer. [address] [place], [address], [place]. tel: [phone] Referring Provider: Benson Carpio, [address], [place], [address]. tel:[phone] [facility], [address] [facility], [place], [place], [address], [place] tel:[phone] [place] No Information 0- 5 Helen Saeed. . Referring Provider: Benson Carpio, [address], [place], [address]. tel:[phone] [facility], [address] [facility], [place], [address], [place] tel:[phone] [place] No Information Jul-0 9201 5 Cottrell Elmer. [facility] [place], [address], [place]. tel: [phone] Referring Provider: Benson Carpio, [address], [place], [address]. tel:[phone] [facility], [address], [place], [place], [address], [place] tel:[phone] [place] No Information 0 6- 5 Cottrell Elmer. [facility] [place], [address], [place]. tel: [phone] Referring Provider: Benson Carpio, [address], [place], [address]. tel:[phone] [facility], [address], [place], [place], [address], [place] tel:[phone] [place] No Information Apr-0 2-201 5 Cottrell Elmer. [facility] [place], [address], [place]. tel: [phone] Referring Provider: Benson Carpio, [address], [place], [address]. tel:[phone] [facility], [address], [place], [place], [id number], [place] tel:[phone] [place] No Information Mar-3 1-201 5 Cottrell Elmer. [facility] [place], [address], [place]. tel: [phone] Referring Provider: Benson Carpio, [address], [place], [address]. tel:[phone] [facility], [address], [place], [place], [address], [place] tel:[phone] [place] No Information Mar-2 7-201 5 Ctotrell Elmer. [facility] [place], [address], [place]. tel: [phone] Referring Provider: Benson Carpio, [address] [facility], [place], [address]. tel:[phone] [facility], [address], [place], [place], [address], [place] tel:[phone] [place] Partial Tear Of Rotator Cuff Mar-2 5-201 5 Cottrell Elmer. [facility] [place], [address], [place]. tel: [phone] Referring Provider: Benson Carpio, [address] [facility], [place], [address]. tel:[phone] [facility], [address], [place], [place], [address], [place] tel:[phone] [place] No Information Dec-0 8-201 4 Cottrell Elmer. [address] [place], [address], [place]. tel: [phone] Referring Provider: Benson Carpio, [address], [place], [address]. tel:[phone] [facility], [address], [id number], [place] tel:[phone] [place] No Information 0 4 Cottrell Elmer. [address] [place], [address], [place]. tel: [phone] Referring Provider: Benson Carpio, [address], [place], [address]. tel:[phone] [facility], [address], [id number], [place] tel:[phone] [place] No Information 4 Cottrell Elmer. [facility] [place], [address], [place]. tel: [phone] Referring Provider: Benson Carpio, [address], [place], [address]. tel:[phone] [facility], [address], [id number], [place] tel:[phone] [place] No Information 3 4 Cottrell Elmer. [facility] [place], [address], [place]. tel: [phone] Referring Provider: Benson Carpio, [address], [place], [address]. tel:[phone] [facility], [address], [id number], [place] tel:[phone] [place] No Information 2 4 Cottrell Elmer. [address] [place], [address], [place]. tel: [phone] Referring Provider: Benson Carpio, [address] [place], [address]. tel: [phone] [facility], [address], [place], [place], [address], [place] tel:[phone] [place] No Information 0 6 4 Cottrell Elmer. [facility] [place], [address], . tel: [phone] Referring Provider: Benson Carpio, [address], [place], [address]. tel: [phone] [facility], [address], [place], [place], [address], [place] tel:[phone] [place] No Information 0 4 Cottrell Elmer. [facility] [place], [address], . tel: [phone] Referring Provider: Benson Carpio, [address], [place], [address]. tel:[phone] [facility], [address], [place], [place], [address], [place] tel:[phone] [place] No Information 3 4 Cottrell Elmer. [address] [place] [address], [address], . tel: [phone] Referring Provider: Benson Carpio, [address], [place], [address]. tel: [phone] [facility], [address], [place], [address], [place] tel:[phone] [place] No Information 1 4 Cottrell Elmer. [facility] [place], [address], [place]. tel: [phone] Referring Provider: Benson Carpio, [address] [facility], [place], [address]. tel:[phone] [facility], [address], [place], [address], [place] tel:[phone] Bárbara Other specified disorders of bursae and tendons in shoulder regionPain in joint involving shoulder region 4 Simba Payne. [address] [place], [address], . tel:[phone] Referring Provider: Bensno Carpio, [address] [place] [address], [place], [address]. tel:[phone] Family History Family Member Type Diagnosis Age At Onset No Information Payers Payer name Insurance type Covered republican ID Authoriza tion(s) Medicare [place] [id number] Social History Type Description Quantity Date Captured [...]
--- OUTSIDE RECORDS SUMMARY | 2017-01-04 04:00 | XMS_ITS | Continuity of Care Document ---
Author Organization [facility] Address [address] [address] Phone Care Team Providers Care Community Sports Coordinator Name Role Phone Talha Duncan MD Unavailable Unavailable Allergies, Adverse Reactions, Alerts Substance Reaction Status Criticality No Known Allergies Active No Inform ation Medications Medication Instructions Dosage Effective Dates (start - stop) Status Comments Colace 100 mg capsule take 1 capsule by oral route 2 times every day as needed 100 MG - Active Keflex 500 mg capsule take 1 capsule by oral route every 6 hours for 1 day total use - Active ketorolac 10 mg tablet take 1 tablet by oral route every 8 hours for 2 days total use - Active Zofran ODT 4 mg disintegrating tablet take 1 tablet by oral route every [address] on top of the tongue where they will dissolve, then swallow 4 MG - Active Percocet 10 mg-325 mg tablet take 1-2 tablet by oral route every 6 hours as needed - Active Colace 100 mg capsule take 1 capsule by oral route 2 times every day as needed 100 MG - Active Procedures Procedure Date Post Op Follow Up Visit Xray Shoulder; 2-4 V Post Op Follow Up Visit Arthrplsty Shldr Total OV Detailed Xray Shoulder; 2-4 V Office/Estab Expanded Office/New Detailed OP Advance Directives Directive Yes / No Effective Date File Name No Information Encounters Encounter Description Practice Location Reason(s) For Visit Diagnoses Date Provider Providers Copied on Encounter [facility], [address] [facility] [address], [place], [id number], [place] tel:[phone] [facility] left shoulder pain (chief complaint) Complete rotator cuff tear of left shoulder 7 Perla Palencia. [address] [place] [address], [place], [id number] , [place]. tel:[phone] Referring Provider: Talha Britton, [address] [place] [address] [address], [place], [address] . tel:[phone] [facility], [address] [place], [place] [address], [id number], [place] tel:[phone] [facility] Complete rotator cuff tear of left shoulder 7 Perla Palencia. [address] [place] [address], [id number] , [place]. tel:[phone] Referring Provider: Talha Duncan MD P, [address] [place] [address], [place], [address] . tel:[phone] [facility], [address] [place] [address], [id number], [place] tel:[phone] [facility] No Information 7 Perla Palencia. [address] [place] [address], [id number] , [place]. tel:[phone] Referring Provider: Talha Britton, [address] [place] [address], [place], [address] . tel:[phone] [facility], [address] [place], [place] [address], [id number], [place] tel:[phone] [facility] left shoulder pain (chief complaint) Complete rotator cuff tear of left shoulder 7 Perla Palencia. [address] [place] [address], [id number] , [place]. tel:[phone] Referring Provider: Talha Britton, [address] [place] [address] [address], [address] . tel:[phone] Office/Estab Expanded [facility], [address] [place] [address], [id number], tel:[phone] [facility] left shoulder pain (chief complaint) Complete rotator cuff tear of left shoulder 7 Perla Palencia. [address] [place] [address], [id number] , . tel:[phone] Referring Provider: Talha Duncan MD P, [address] [place] [address], [address] . tel:[phone] Office/New Detailed OP [facility], [address] [place] [address], [id number], tel:[phone] [facility] left shoulder pain (chief complaint) Complete rotator cuff tear of left shoulder 7 Perla Palencia. [address] [place] [address], [id number] , . tel:[phone] Referring Provider: Talha Duncan MD P, [address] [place] [address], [address] . tel:[phone] Family History Family Member Type Diagnosis Age At Onset Father Problem (finding) Family history unknown Mother Problem (finding) Diabetes mellitus Mother Problem (finding) hypertension Mother Problem (finding) Cardiovascular disease Payers Payer name Insurance type Covered republican ID Authoriza tion(s) Medicare [place] [id number] [employer] [place] [id number] Social History Type Description Quantity Date Captured Comments Alcohol Use Details Unknown Caffeine Use Details Unknown Tobacco Use Status No Information Smoking Status Never smoker Non-Smoking Tobacco Use Details : No Details Available : No Details Available Sex Female Vital Signs Date / Time: Height Weight BMI Pulse Rate Blood Pressure Temperature Respiratory Rate Body Surface Area Head Circumference Head Circ. Percentile Wt./Jd. Percentile BMI percentile Pulse Ox Inhaled Ox 10:04 AM 63.00 in 60.781 kg (134.00 lbs) 23.7 4 kg/m eter (2) Chief Complaint And Reason For Visit From encounter dated '01/04/2017 09:00'. left shoulder pain (chief complaint). Description: Cary Richard is a 76 year old female. She presents with pain on the left side. The symptoms occur intermittently. The problem is unchanged. The pain is described as aching. Reason For Referral Reason For Referral No Information Plan Of Treatment Date Type Action Status Referral Ordered: Xray Shoulder; 2-4 V LT ordered Future Order: Lab Order BMP - BA SIC METABOLIC PANEL ([id number]), Ordered on: Ordered Future Order: Lab Order CBC (INC LUDES DIFF/PLT) ([id number]), Ordered on: Ordered Future Order: Lab Order PT AND P TT ([id number]), Ordered on: Ordered History Of Present Illness Encounter Date Complaint History Of Prese nt Illness left shoulder pain Cary hughes is a 76 year old female. She presents with pain on the left side. The symptoms occur intermittently. The problem is unchanged. The pain is described as aching. left shoulder pain Cary hughes is a 76 year old female. She presents with pain on the left side. The symptoms occur constantly. The problem is unchanged. The pain is described as aching. left shoulder pain Cary hughes is a 76 year old female. She presents with pain on the left side. The symptoms occur intermittently. The problem is unchanged. The pain is described as aching. left shoulder pain Ms Richard is a 76 year old female who complains of left shoulder pain. She presents with pain on the left side. The symptoms occur intermittently. The problem is unchanged. The pain is described as aching. Functional Status Date Functional Assessmen t No Information Instructions Date Instruction Additional Infor elvie The patient verbaliz ed an understanding of the plan. Related to Complete rotator cuff tear of left shoulder Patient educated reg liz today's diagnosis. Related to Complete rotator cuff tear of left shoulder Patient educated reg arding medications. Related to Complete rotator cuff tear of left shoulder Patient educated reg arding plan of care and treatment plan. Related to Complete rotator cuff tear of left shoulder Patient instructed i n aftercare following procedure. Related to Complete rotator cuff tear of left shoulder The patient verbaliz ed an understanding of the plan. Related to Complete rotator cuff tear of left shoulder Patient educated reg arding today's diagnosis. Related to Complete rotator cuff tear of left shoulder Patient educated reg arding plan of care and treatment plan. Related to Complete rotator cuff tear of left shoulder The patient verbaliz ed an understanding of the plan. Related to Complete rotator cuff tear of left shoulder Patient educated reg arding plan of care and treatment plan. Related to Complete rotator cuff tear of left shoulder Patient instructed i n aftercare following procedure. Related to Complete rotator cuff tear of left shoulder Patient educated reg arding today's diagnosis. Related to Complete rotator cuff tear of left shoulder Patient educated reg arding medications. Related to Complete rotator cuff tear of left shoulder Return to office as instructed by physician. Related to Complete rotator cuff tear of left shoulder Patient educated reg arding today's diagnosis. Related to Complete rotator cuff tear of left shoulder Patient educated reg arding plan of care and treatment plan. Related to Complete rotator cuff tear of left shoulder Assessments Type Assessment Date assessment Complete rotator cuff tear of le ft shoulder Patient Care Teams Name Effective Dates (start - stop) Status Members No Information
--- OUTSIDE RECORDS SUMMARY | 2017-01-04 04:00 | XMS_ITS | Continuity of Care Document ---
Author Organization [facility] Address [address] [address] Phone Care Team Providers Care Elevator Supervisor Name Role Phone Talha Duncan MD Unavailable [...] Provider Providers Copied on Encounter [facility], [address] [facility] [address], [place], [id number], [place] tel:[phone] [facility] left shoulder pain (chief complaint) Complete rotator cuff tear of left shoulder 7 Perla Palencia. [address] [place] [address] [address], [place], [id number] , [place]. tel:[phone] Referring Provider: Talha Britton, [address] [place] [address] [address], [place], [address] . tel:[phone] [facility], [address] [place], [place] [address] [address], [id number], [place] tel:[phone] [facility] Complete rotator cuff tear of left shoulder 7 Perla Palencia. [address] [place] [address] [address], [id number] , [place]. tel:[phone] Referring Provider: Talha Duncan MD P, [address] [place] [address] [address], [address] . tel:[phone] [facility], [address] [place] [address] [address], [id number], [place] tel:[phone] [facility] No Information 7 Perla Palencia. [address] [place] [address] [address], [id number] , [place]. tel:[phone] Referring Provider: Talha Britton, [address] [place] [address] [address], [address] . tel:[phone] [facility], [address] [place], [place] [address] [address], [id number], [place] tel:[phone] [facility] left shoulder pain (chief complaint) Complete rotator cuff tear of left shoulder 7 Perla Palencia. [address] [place] [address] [address], [id number] , [place]. tel:[phone] Referring Provider: Talha Britton, [address] [place] [address] [address], [place], [address] . tel:[phone] Office/Estab Expanded [facility], [address] [place] [address], [id number], tel:[phone] [facility] left shoulder pain (chief complaint) Complete rotator cuff tear of left shoulder 7 Perla Palencia. [address] [place] [address], [id number] , . tel:[phone] Referring Provider: Talha Duncan MD P, [address] [place] [address], [id number] . tel:[phone] Office/New Detailed OP [facility], [address] [place] [address], [id number], tel:[phone] [facility] left shoulder pain (chief complaint) Complete rotator cuff tear of left shoulder 7 Perla Palencia. [address] [place] [address], [id number] , . tel:[phone] Referring Provider: Talha Duncan MD P, [address] [place] [address], [id number] . tel:[phone] Family History Family Member Type Diagnosis Age At Onset Father Problem (finding) Family history unknown Mother Problem (finding) Diabetes mellitus Mother Problem (finding) hypertension Mother Problem (finding) Cardiovascular disease Payers Payer name Insurance type Covered alliance party ID Authoriza tion(s) Medicare MB MB [id number] [employer] Med[employer] Cal MC MC [id number] Social History Type Description Quantity Date Captured [...] Order BMP - BA SIC METABOLIC PANEL (28099), Ordered on: Ordered Future Order: Lab Order [...]
[2025-01-01] VITALS (10 sets, daily range): BP systolic 95–160; BP diastolic 56–89; PULSE 82–92; RESP 18–26; TEMP 37.7; O2SAT 92–99; BMI 27.3
--- NOTE | ~2025-01-01 | XR_ITS ---
XR chest 1V portable 01/01/2025 18:51 Indication: Covid. Shortness of breath. Procedure: AP view of the chest Comparison: 10/13/2024 Findings: Heart size normal. No focal air space disease, pulmonary edema, pleural effusion or suspected pneumothorax. Pacemaker leads stable. Calcified granulomas right apex. Elevated right diaphragm. Impression: 1: No acute cardiopulmonary disease. Reviewed, dictated and finalized at location O. Impression: 1: No acute cardiopulmonary disease.
--- NOTE | 2025-01-01 18:25 | ED_ITS ---
HPI - Weakness General Chief complaint: Weakness Stated complaint: covid (+) weakness Source: patient and EMS Mode of arrival: EMS Limitations: no limitations History of Present Illness HPI Narrative: Patient is a 84-year-old female from a nursing facility here due to generalized weakness with COVID positive. She was sent in due to the fact they cannot do lifting and moving a patient in this type of facility. She has general weakness and not any focal changes. Shortness of breath. No chest pain. MD Complaint: generalized weakness Onset (ago): day(s) ( Two) Duration: constant Location: generalized Migration: none Severity: moderate Severity scale (1-10): 4 Quality: dull Relieving factors: none Exacerbating factors: movement Context: recent illness ( currently COVID positive with worsening symptoms) Associated symptoms: shortness of breath Related Data Home Medications ?Medication ?Instructions ?Recorded ?Confirmed ?Last Taken ?Type gabapentin 300 mg capsule 300 mg PO DAILY 10/21/24 Unknown History metoprolol succinate 25 mg mg PO 10/21/24 11/20/24 Unk nown History tablet,extended release 24 hr omeprazole 40 mg capsule,delayed 40 mg PO 10/21/24 Unknown History release ropinirole 2 mg tablet 2 mg PO 10/21/24 11/20/24 Un known History rosuvastatin 20 mg tablet 20 mg PO 10/21/24 11/20/24 U nknown History ergocalciferol (vitamin D2) 1,250 1,250 mcg PO WEEKLY 01/01/25 Unknown History mcg (50,000 unit) capsule Allergies Allergy/AdvReac Type Severity Reaction Status Date / Time No Known Allergies Allergy Verified 01/01/25 18:53 Review of Systems 2 Review of Systems: All systems reviewed & are unremarkable except as noted in HPI and below Constitutional: Constitutional: Reports no additional constitutional complaints Eyes: Eyes: Reports no additional eye complaints ENT: Reports system reviewed and no additional complaints, except as documented Cardiovascular: Cardiovascular: Reports no additional cardiovascular complaints Respiratory: Respiratory: Reports no additional respiratory complaints Gastrointestinal: Gastrointestinal: Reports no additional gastrointestinal complaints Genitourinary: Genitourinary: Reports no additional female genitourinary complaints Musculoskeletal: Musculoskeletal: Reports no additional musculoskeletal complaints Integumentary/Breasts: Skin/Breast: Reports system reviewed and no additional complaints, except as docu Neurologic: Reports system reviewed and no additional complaints, except as documented Psychiatric: Psychiatric: Reports no additional psychiatric complaints Endocrine: Endocrine: Reports no additional endocrine complaints Hematologic/Lymphatic: Hematologic/Lymphatic: Reports no additional hematologic/lymphatic complaints Allergic/Immunologic: Allergic/Immunologic: Reports no additional allergic/immunologic complaints PMFSH Social History Social History Smoking status: Former smoker Exam 2 Const: General: ill appearing Nutritional Appearance: well nourished O rientation/consciousness: patient oriented x3 Limitations: no limitations HENMT: Head: normal to inspection Ears: external ears normal F jerry/Nose/Sinus: Normal external nose present Eyes: Conjunctivae: conjunctivae normal Pupils: Equal, round and reactive pupils present EOM: EOMs intact bilaterally Neck: Neck: normal visual inspection Chest: Chest palpation & inspection: normal inspection of the chest Resp: Effort & Inspection: normal respiratory effort and not labored A uscultation: clear to auscultation bilaterally and no crackles Cardio: Rate: regular rate Rhythm: regular rhythm Heart sounds: no murmurs GI: Inspection: non-distended GI Palp: Yes Soft to palpation and No Tenderness to palpation present (GI) Auscultation: normal bowel sounds : General: Yes bladder normal to palpation Back/Spine/Pelvis: Back: no CVA tenderness Skin: General skin exam: normal color Rashes: no rashes Wounds: no wounds Neuro: General: patient oriented x3, moves all extremities and no meningeal signs Extrem: General: normal to inspection Psych: Mental Status: mental status grossly normal Affect: normal affect Attitude: cooperative Course Vital Signs Vital signs: Vital Signs Temperature 37.7 C H 01/01/25 18:22 Pulse Rate 89 01/01/25 18:22 Respiratory Rate 20 01/01/25 18:22 Blood Pressure 156/71 H 01/01/25 18:22 Pulse Oximetry 95 01/01/25 18:22 Oxygen Delivery Room Air 01/01/25 18:22 Temperature 37.7 C H 01/01/25 18:22 Pulse Rate 87 01/01/25 20:02 Respiratory Rate 20 01/01/25 20:02 Blood Pressure 135/89 01/01/25 20:02 Pulse Oximetry 97 01/01/25 20:02 Oxygen Delivery Room Air 01/01/25 18:25 MDM - Weakness MDM Narrative Medical decision making narrative: patient is a 84-year-old female with generalized weakness and COVID positive. We will do a septic workup at this time. Droplet precaution. IV fluid. Likely admit patient. Lab Data Attestation: I reviewed the patient's lab results. 01/01/25 19:20 01/01/25 19:20 Labs: Lab Results 01/01/25 01/01/25 Range/Units 19:20 19:38 WBC 7.6 (4.8-10.8) K/mm3 RBC 3.58 L (4.20-5.40) M/mm3 Hgb 11.3 L (11.7-13.8) g/dL Hct 33.9 L (35.0-42.0) % MCV 94.7 (78.0-102.0) fL MCH 31.6 H (27.0-31.0) pg MCHC 33.3 (32-36) g/dL RDW 12.8 (11.6-14.4) % Plt Count 67 L (150-420) K/mm3 MPV 10.0 (9.2-11.8) fl Immature Gran % (Auto) 0.4 H (0.0-0.0) % Neut % (Auto) 74.3 H (50.0-70.0) % Lymph % (Auto) 10.7 L (18.0-42.0) % Cassia % (Auto) 14.1 H (2.0-11.0) % Eos % (Auto) 0.0 L (1.0-6.0) % Baso % (Auto) 0.5 (0.0-1.0) % Lymph # (Auto) 0.81 L (1.10-4.50) K/mm3 Cassia # (Auto) 1.07 H (0.10-0.90) K/mm3 Eos # (Auto) 0.00 L (0.02-0.50) K/mm3 Baso # (Auto) 0.04 (0.00-0.10) K/mm3 Abs Immat Gran (auto) 0.03 H (0.00-0.00) K/mm3 Absolute Neuts (auto) 5.62 (1.70-7.20) K/mm3 Absolute Nucleated RBC 0.00 (0.00-0.00) K/mm3 Nucleated RBC % 0.0 (0-0.0) % % Immature Plt Fraction 2.8 (1.0-7.0) % Sodium 135 L (137-145) mmol/L Potassium 4.5 (3.4-5.0) mmol/L Chloride 96 L (98-107) mmol/L Carbon Dioxide 28 (22-30) mmol/L Anion Gap 11 (4-12) mmol/L BUN 27 H (7-17) mg/dL Creatinine 1.85 H (0.7-1.0) mg/dL Estim Creat Clear Calc 18 ml/min Estimated GFR 26 L (59 - ) Glucose 120 H (65-110) mg/dL Calculated Osmolality 286 (285-295) mOsm/kg Lactic Acid 1.1 (0.4-2.0) mmol/L Calcium 9.4 (8.4-10.2) mg/dL Total Bilirubin 0.7 (0.2-1.3) mg/dL AST 73 H (14-36) U/L ALT 26 (6-35) U/L Alkaline Phosphatase 109 (38-126) U/L Troponin I 0.078 H* (0.000-0.034) ng/mL NT-Pro-B Natriuret Pep 5510 H (19.9-100) pg/mL Total Protein 7.9 (6.3-8.2) g/dL Albumin 4.6 (3.5-5.1) g/dL Urine Color Light yellow (Yellow) Urine Appearance Clear (Clear) Urine pH 6.5 (5.0-8.0) Ur Specific [place] 1.010 (1.010-1.020) Urine Protein 2+ H (Negative) Urine Glucose (UA) Negative (Negative) Urine Ketones Negative (Negative) Ur Blood (Man) 1+ H (Negative) Urine Nitrate Negative (Negative) Urine Bilirubin Negative (Negative) Urine Urobilinogen 1.0 (0.2-1.0) mg/dL Leukocyte Esterase Rfl 1+ H (Negative) CLIVE/UL Urine RBC 6-10 H (0-2) /hpf Urine WBC 10-15 H (0-3) /hpf Urine WBC Clumps Present H (None) /hpf Ur Squamous Epith Cells Few (Few) /hpf Amorphous Sediment Moderate H (None) Urine Bacteria 1+ H (None) /hpf Urine Mucus Few H /lpf Influenza A (RT-PCR) Negative (Negative) Influenza B (RT-PCR) Negative (Negative) RSV (RT-PCR) Negative (Negative) SARS-CoV-2 RNA (RT-PCR) Positive A (Negative) Imaging Data Attestation: I personally reviewed and interpreted this imaging study as follows: Radiologist's impression: chest x-ray is negative for acute process ECG Data EKG #1: Attestation: I personally reviewed and interpreted this ECG as follows: ECG completion date: 01/01/25 ECG completion time: 18:52 EKG Interpretation: normal rate, sinus rhythm, no ectopy, non-specific ST changes, widened QRS, normal QT and left axis Discharge Plan Discharge Clinical Impression: COVID, Generalized weakness, Sepsis secondary to UTI, Elevated troponin, Elevated brain natriuretic peptide (BNP) level CKD (chronic kidney disease) Qualifiers: Chronic kidney disease stage: unspecified stage Qualified Code(s): N18.9 - Chronic kidney disease, unspecified Patient Disposition: Acute Care [facility] Condition: Stable Patient Language: [place] Prescriptions: No Action ergocalciferol (vitamin D2) 1,250 mcg (50,000 unit) capsule 1,250 mcg PO WEEKLY rosuvastatin 20 mg tablet 20 mg PO ropinirole 2 mg tablet 2 mg PO metoprolol succinate 25 mg tablet extended release 24 hr PO gabapentin 300 mg capsule 300 mg PO DAILY omeprazole 40 mg capsule,delayed release(DR/EC) 40 mg PO Follow-up/Referrals: Eliseo Mar MD [Primary Care Provider, Internal Medicine] Time of Disposition: 20:19
--- NOTE | 2025-01-01 18:26 | ECG_ITS ---
Test Date: 2025-01-01 18:39:55 Measurements Intervals [place] Rate: 85 P: 79 OR: 224 QRS: -72 QRSD: 120 T: 89 QT: 391 QTc: 466 Interpretive Statements SINUS RHYTHM WITH SINUS ARRHYTHMIA WITH FIRST DEGREE AV BLOCK LEFT AXIS DEVIATION [QRS AXIS < -30] LEFT VENTRICULAR HYPERTROPHY AND ST-T CHANGE [VOLTAGE CRITERIA PLUS ST/T ABNORMALITY] Compared to ECG 10/13/2024 14:02:13 Left ventricular hypertrophy now present ST (T wave) deviation now present Atrial-paced complex(es) or rhythm no longer present Intraventricular conduction delay no longer present Electronically Signed On 01-02-2025 10:48:31 CDT by Dandy Loya M.D.
--- NOTE | 2025-01-01 18:55 | PC.NURSE ---
ASSUMED CARE. REPORT RECEIVED FROM DAMEON WILSON. LAB CURRENTLY AT THE BEDSIDE. COVID PRECAUTIONS IN PLACE
--- NOTE | 2025-01-01 19:00 | PC.NURSE ---
report to sheba méndez
--- NOTE | 2025-01-01 19:09 | PC.NURSE ---
ATTEMPTED IV LINE PLACEMENT X 1. UNSUCCESSFUL. LAB TO DRAW SECOND SET OF BLOOD CULTURES. DAUGHTER, PAM, OUT IN WAITING ROOM. SHE DOES NOT WANT TO COME BACK TO THE ROOM. PATIENT HAS CALL LIGHT IN REACH
[2025-01-01 19:39] LABS: Hematocrit 33.9 % (35.0-42.0); Hemoglobin 11.3 g/dL (11.7-13.8); Immature Granulocyte Percent A 0.4 % (0.0-0.0); Immature Platelet Fraction Pct 2.8 % (1.0-7.0); Lymphocytes Absolute Auto 0.81 K/mm3 (1.10-4.50); Mean Corpuscular HGB Conc 33.3 g/dL (32-36); Mean Corpuscular Hemoglobin 31.6 pg (27.0-31.0); Mean Corpuscular Volume 94.7 fL (78.0-102.0); Nucleated Red Blood Cells Absolute Auto 0.00 K/mm3 (0.00-0.00); Nucleated Red Blood Cells Perc 0.0 % (0-0.0); Platelet Count Result 67 K/mm3 (150-420); Red Blood Count 3.58 M/mm3 (4.20-5.40); White Blood Count 7.6 K/mm3 (4.8-10.8)
[2025-01-01] MEDS: SODIUM CHLORIDE 0.9% IV 1,000 ML 999 ML IV CONT (19:40)
[2025-01-01 19:45] LABS: Add Urine Microscopic? YES; Appearance Urine Clear (Clear); Glucose Urine UA Negative (Negative); Leukocyte Esterase Ur 1+ LEU/UL (Negative); Nitrate Urine Negative (Negative); Specific Grav Ur 1.010 (1.010-1.020)
[2025-01-01 19:47] LABS: Alanine Aminotransferase 26 U/L (6-35); Albumin Level 4.6 g/dL (3.5-5.1); Alkaline Phosphatase 109 U/L (38-126); Anion Gap 11 mmol/L (4-12); Aspartate Amino Transferase 73 U/L (14-36); Bilirubin,Total 0.7 mg/dL (0.2-1.3); Blood Urea Nitrogen 27 mg/dL (7-17); Calcium 9.4 mg/dL (8.4-10.2); Carbon Dioxide 28 mmol/L (22-30); Chloride 96 mmol/L (98-107); Estimated CRCL calculation 18 ml/min; Estimated Glomerular Filt Rate 26; Glucose 120 mg/dL (65-110); Osmolality Calculated 286 mOsm/kg (285-295); Potassium 4.5 mmol/L (3.4-5.0); Sodium 135 mmol/L (137-145); Total Protein 7.9 g/dL (6.3-8.2)
--- NOTE | 2025-01-01 20:00 | PC.NURSE ---
RESTING QUIETLY ON STRETCHER. STATES MY LEGS JUST WONT QUIT MOVING. HX OF RLS. CALL LIGHT IN REACH
[2025-01-01 20:01] LABS: NT Pro B Type Natriuretic Pept 5510 pg/mL (19.9-100); Troponin I 0.078 ng/mL (0.000-0.034)
[2025-01-01 20:12] LABS: Influenza A QL RT-PCR Negative (Negative); Influenza B QL RT-PCR Negative (Negative); RSV RNA, RT-PCR Negative (Negative); SARS-CoV-2 RNA PCR Positive (Negative)
[2025-01-01] MEDS: ASPIRIN 81 MG CHEWABLE TABLET 324 MG PO (20:20)
[2025-01-01] MEDS: PIPERACILLIN/TAZOBACTAM SOD 3.375 GM in SODIUM CHLORIDE 0.9% IV 50 ML 100 ML IVPB (20:21)
--- NOTE | 2025-01-01 20:33 | PC.NURSE ---
SPOKE WITH MAL RN, CHARGE NURSE ON MED SURG FLOOR. PATIENT TO GO TO ROOM 207
--- NOTE | 2025-01-01 21:11 | PC.NURSE ---
PATIENT IS RESTING QUIETLY ON STRETCHER. WAITING TO GO TO THE FLOOR. ROOM 207. JOEL DENIES ANY NEEDS. CALL LIGHT IN REACH
--- NOTE | 2025-01-01 21:41 | ADMGEN ---
This patient, Cary Schneider, was admitted to 2nd Floor Room 207-1. Patient/family oriented to hospital policies and general routines including ID bracelet, bed and alarms, visiting hours, pain management, procedures, bathroom and other care routines, personal items, smoking policy, room service/diet, and visiting hours. Information on how to activate the Rapid Response Team has been discussed. Patient/Family are encouraged to report perceived risks to care and to ask questions if they do not understand what they are told or what they should do.
[2025-01-01] MEDS: SODIUM CHLORIDE 0.9% IV 1,000 ML 100 ML IV CONT (21:45)
[2025-01-02] VITALS: BP 126/51; PULSE 87; RESP 16; TEMP 36.7; O2SAT 94
[2025-01-02] MEDS: PIPERACILLIN/TAZOBACTAM SOD 2.25 GM in SODIUM CHLORIDE 0.9% IV 50 ML 100 ML IVPB (06:10)
[2025-01-02 06:39] LABS: Hematocrit 32.1 % (35.0-42.0); Hemoglobin 10.6 g/dL (11.7-13.8); Immature Granulocyte Percent A 0.2 % (0.0-0.0); Immature Platelet Fraction Pct 2.9 % (1.0-7.0); Lymphocytes Absolute Auto 0.51 K/mm3 (1.10-4.50); Mean Corpuscular HGB Conc 33.0 g/dL (32-36); Mean Corpuscular Hemoglobin 31.5 pg (27.0-31.0); Mean Corpuscular Volume 95.5 fL (78.0-102.0); Nucleated Red Blood Cells Absolute Auto 0.00 K/mm3 (0.00-0.00); Nucleated Red Blood Cells Perc 0.0 % (0-0.0); Platelet Count Result 58 K/mm3 (150-420); Red Blood Count 3.36 M/mm3 (4.20-5.40); White Blood Count 5.7 K/mm3 (4.8-10.8)
[2025-01-02 06:49] LABS: Alanine Aminotransferase 27 U/L (6-35); Albumin Level 4.3 g/dL (3.5-5.1); Alkaline Phosphatase 103 U/L (38-126); Anion Gap 11 mmol/L (4-12); Aspartate Amino Transferase 80 U/L (14-36); Bilirubin,Total 0.8 mg/dL (0.2-1.3); Blood Urea Nitrogen 28 mg/dL (7-17); Calcium 9.1 mg/dL (8.4-10.2); Carbon Dioxide 24 mmol/L (22-30); Chloride 101 mmol/L (98-107); Estimated CRCL calculation 21 ml/min; Estimated Glomerular Filt Rate 28; Glucose 148 mg/dL (65-110); Osmolality Calculated 290 mOsm/kg (285-295); Potassium 4.9 mmol/L (3.4-5.0); Sodium 136 mmol/L (137-145); Total Protein 7.2 g/dL (6.3-8.2)
[2025-01-02 08:00] VITALS: BP 148/68; PULSE 84; RESP 17; TEMP 36.3; O2SAT 94
[2025-01-02 08:06] LABS: Troponin I 0.140 ng/mL (0.000-0.034)
[2025-01-02] MEDS: PANTOPRAZOLE 40 MG TABLET PO ×2 (09:28→17:20)
[2025-01-02 09:29] VITALS: PULSE 80
[2025-01-02] MEDS: GABAPENTIN 300 MG CAPSULE PO (09:29)
[2025-01-02] MEDS: ROSUVASTATIN 10 MG TABLET 20 MG PO (09:29)
[2025-01-02] MEDS: METOPROLOL SUCCINATE EXT REL 25 MG TABCR PO (09:29)
--- NOTE | 2025-01-02 09:42 | PM.IMHP ---
H&P: HPI History of Present Illness Date/Time: 01/02/25 09:42 Chief Complaint: Weakness Narrative: Patient is a 84 year old female with PMH of HTN, aortic stenosis s/p TAVR, chronic diastolic heart failure, PVD, HLD, RLS, neuropathy, GERD and a history of breast cancer. Patient presented to the ER yesterday from her assisted living facility after she sustained a fall and needed help to get up due to weakness. Patient was diagnosed with Covid-19 a few days ago at her assisted living. Patient reports she had a cough a few days ago, but it has resolved. In the ED the patient was given some IV fluids, IV zosyn and PO prednisone. Patient denies chest pain or dyspnea. Patients labwork in the ED showed a troponin of 0.078, BNP 5510, Cr 1.85, BUN 27, Platelets 67. UA showed wbc 10-15 with wbc clumps and RBC 6-10, urine culture is pending. Patient was admitted to the hospital for observation. PT/OT will be consulted. Repeat troponins to trend. Review of Systems Review of Systems: All systems reviewed & are unremarkable except as noted in HPI and below [facility] Social History Social History Smoking packs per day: 0.5 Smoking cigarettes per day: 10.0 Years smoked: 30 Smoking pack-years: 15.00 Smoking status: Former smoker Tobacco type: cigarettes Second hand tobacco smoke exposure: No Smoking end date: 04/29/94 Alcohol intake: current Drinks per week: 1 Substance use: never Lack of Transportation: No Lack of Food: Never True Current Housing: I Have Housing Concerned About Future Housing: No Difficulty Paying Gas/Electric Bills: No Difficulty Paying for Meds: No Currently Unemployed: No Education: High School Diploma/GED Difficulty w/ Childcare or Family Care: No Spiritual care concerns: No Meds Home Medications and Allergies Home Medications ?Medication ?Instructions ?Recorded ?Confirmed ?Type gabapentin 300 mg capsule 300 mg PO DAILY 10/21/24 01/01/25 History metoprolol succinate 25 mg 25 mg PO DAILY 10/21/24 01/01/25 History tablet,extended release 24 hr omeprazole 40 mg capsule,delayed 40 mg PO QAM 10/21/24 01/01/25 History release ropinirole 2 mg tablet 2 mg PO Q12H 10/21/24 01/01/25 History rosuvastatin 20 mg tablet 20 mg PO DAILY 10/21/24 01/01/25 History ergocalciferol (vitamin D2) 1,250 1,250 mcg PO WEEKLY 01/01/25 01/01/25 History mcg (50,000 unit) capsule Allergies Allergy/AdvReac Type Severity Reaction Status Date / Time No Known Allergies Allergy Verified 01/01/25 18:53 Vital Signs Vital Signs - 24 hr 01/01/25 18:22 01/01/25 18:25 01/01/25 18:54 Temperature 99.9 F H Pulse Rate 89 86 Respiratory Rate 20 22 H Blood Pressure 156/71 H 95/69 L Pulse Oximetry 95 97 Oxygen Delivery Room Air Room Air 01/01/25 19:33 01/01/25 19:46 01/01/25 20:02 Temperature Pulse Rate 89 85 87 Respiratory Rate 22 H 20 20 Blood Pressure 95/69 L 122/80 135/89 Pulse Oximetry 92 96 97 Oxygen Delivery 01/01/25 20:18 01/01/25 20:32 01/01/25 20:46 Temperature Pulse Rate 89 92 84 Respiratory Rate 18 22 H 26 H Blood Pressure 142/82 H 160/80 H 131/58 L Pulse Oximetry 99 94 93 Oxygen Delivery Room Air Room Air Room Air 01/01/25 21:00 01/01/25 21:14 01/02/25 00:00 Temperature 98.1 F Pulse Rate 82 82 87 Respiratory Rate 20 20 16 Blood Pressure 125/56 L 125/56 L 126/51 L Pulse Oximetry 93 93 94 Oxygen Delivery Room Air Room Air Room Air 01/02/25 09:29 Temperature Pulse Rate 80 Respiratory Rate Blood Pressure Pulse Oximetry Oxygen Delivery Exam Narrative: General: elderly, no acute distress HEENT: normocephalic, . Mucous membranes moist. EOMI Respiratory: clear to auscultation bilaterally, no wheeze, rales, rhonchi Cardiovascular: Regular rate and rhythm, normal S1-S2 upon auscultation. No murmurs, rubs, or clicks. Abdomen: Soft, round, no pulsatile masses, nondistended and nontender. No rebound, no guarding. Bowel sounds present to all four quadrants Extremities: No cyanosis, clubbing. 1+ edema to BLE. Neuro: Alert and orientated x 4. Cranial nerves 2-12 intact without focal deficit. Poor historian. Skin: Warm, dry, and intact, without rash, erythema, or lesion.? Psych: pleasant, cooperative, normal speech, normal affect H&P: Results Labs Labs: Short CBC 01/01/25 01/02/25 Range/Units 19:20 05:59 WBC 7.6 5.7 (4.8-10.8) K/mm3 Hgb 11.3 L 10.6 L (11.7-13.8) g/dL Hct 33.9 L 32.1 L (35.0-42.0) % Plt Count 67 L 58 L (150-420) K/mm3 BMP 01/01/25 01/02/25 19:20 05:59 Sodium 135 L 136 L Potassium 4.5 4.9 Chloride 96 L 101 Carbon Dioxide 28 24 BUN 27 H 28 H Creatinine 1.85 H 1.74 H Glucose 120 H 148 H Calcium 9.4 9.1 Cardiac Enzymes 01/01/25 01/02/25 Range/Units 19:20 05:59 Troponin I 0.078 H* 0.140 H* (0.000-0.034) ng/mL Liver Function 01/01/25 01/02/25 Range/Units 19:20 05:59 Total Bilirubin 0.7 0.8 (0.2-1.3) mg/dL AST 73 H 80 H (14-36) U/L ALT 26 27 (6-35) U/L Alkaline Phosphatase 109 103 (38-126) U/L Albumin 4.6 4.3 (3.5-5.1) g/dL Urine 01/01/25 Range/Units 19:38 Urine Color Light yellow (Yellow) Urine Appearance Clear (Clear) Urine pH 6.5 (5.0-8.0) Ur Specific [place] 1.010 (1.010-1.020) Urine Protein 2+ H (Negative) Urine Glucose (UA) Negative (Negative) Assessment and Plan Assessment and plan (1) Generalized weakness: Code(s): R53.1 - Weakness Status: Acute Assessment and Plan: patient had a fall requiring her to be helped up by staff staff is not able to assist patients so she was sent for evaluation patient diagnosed with covid a few days ago at her [place] Covid + here on PCR PT/OT eval and treat fall precautions (2) COVID: Code(s): U07.1 - COVID-19 Status: Acute Assessment and Plan: per report patient tested positive a few days ago at her [place] patient reports she had a cough but that it has resolved covid + here on PCR s/p PO prednisone in ED CXR with no acute changes patient on room air, denies cough or dyspnea isolation PT/OT (3) Elevated troponin: Code(s): R79.89 - Other specified abnormal findings of blood chemistry Status: Acute Assessment and Plan: patients initial troponin was 0.078 and repeat this AM was 0.140 most likely demand ischemia check repeat troponin in 3 hours patient denies chest pain or dyspnea (4) Elevated brain natriuretic peptide (BNP) level: Code(s): R79.89 - Other specified abnormal findings of blood chemistry Status: Acute Assessment and Plan: patients BNP 5510 on admission patient has 1+ edema to BLE which patient reports has been worsening over months per notes from nephrology patient was taking PO lasix as outpatient but it does not apper she is taking now restart PO lasix 20 mg daily monitor kidney function (5) Acquired thrombocytopenia: Code(s): D69.6 - Thrombocytopenia, unspecified Status: Acute Assessment and Plan: Plt count on admission 67 review of previous labs appears her basline is the low 100's most likely reactive to acute illness no signs of bleeding CBC in am (6) Acute cystitis: Code(s): N30.00 - Acute cystitis without hematuria Status: Acute Assessment and Plan: UA with rbc 6-10, wbc 10-15 with wbc clumps f/u urine culture s/p IV zosyn in ED start IV Rocephin AM labs (7) Diastolic dysfunction: Code(s): I51.89 - Other ill-defined heart diseases Status: Acute Assessment and Plan: patients BNP elevated 5510 on admission restart patients home lasix 20 mg PO daily patient denies dyspnea and reports edema has been worsening over months monitor kidney function patient sees cardiology as outpatient AM labs (8) Abnormal results of kidney function studies: Code(s): R94.4 - Abnormal results of kidney function studies Status: Acute Assessment and Plan: Patients baseline cr appears around 1.7 patient sees nephrology as outpatient avoid nephrotoxics as able BMP in am Quality VTE Prophylaxis VTE prophylaxis: mechanical ordered and pharmacologic ordered
[2025-01-02] MEDS: FUROSEMIDE 20 MG TABLET PO (09:55)
[2025-01-02] MEDS: ARTIFICIAL TEARS OPHTH SOLN 15 ML BOTTLE 1 DROP EACH EYE (10:01)
[2025-01-02] MEDS: cefTRIAXone 1 GM in SODIUM CHLORIDE 0.9% IV 50 ML 100 ML IVPB (10:52)
[2025-01-02 11:34] LABS: Troponin I 0.108 ng/mL (0.000-0.034)
[2025-01-02 16:00] VITALS: BP 142/77; PULSE 71; RESP 15; TEMP 36.7; O2SAT 97
--- NOTE | 2025-01-02 19:53 | PC.NURSE ---
This RN assumed care of pt at this time and introduce self to pt. Pt resting comfortably in hospital bed with with even and unlabored respirations. VS updated. Pt provided with warm blankets and denies any further needs at this time. Hospital bed remains in low locked position, call light in reach, and bed alarm on.
[2025-01-02 19:58] VITALS: PULSE 71; RESP 15; O2SAT 97
[2025-01-03 00:22] VITALS: BP 129/54; PULSE 71; RESP 18; TEMP 36.6; O2SAT 94
--- NOTE | 2025-01-03 04:58 | PC.NURSE ---
This RN at bedside to provide pt with additional briefs. Pt denies any other needs or concerns at this time. Respirations even and unlabored. Hosptial bed remains in low locked position, bed alarm on, and call light within pt's reach.
[2025-01-03 07:30] LABS: Alanine Aminotransferase 26 U/L (6-35); Albumin Level 3.8 g/dL (3.5-5.1); Alkaline Phosphatase 76 U/L (38-126); Anion Gap 11 mmol/L (4-12); Aspartate Amino Transferase 77 U/L (14-36); Bilirubin,Total 0.7 mg/dL (0.2-1.3); Blood Urea Nitrogen 35 mg/dL (7-17); Calcium 8.6 mg/dL (8.4-10.2); Carbon Dioxide 21 mmol/L (22-30); Chloride 103 mmol/L (98-107); Estimated CRCL calculation 22 ml/min; Estimated Glomerular Filt Rate 29; Glucose 101 mg/dL (65-110); Osmolality Calculated 288 mOsm/kg (285-295); Potassium 4.6 mmol/L (3.4-5.0); Sodium 135 mmol/L (137-145); Total Protein 6.9 g/dL (6.3-8.2)
[2025-01-03 07:43] LABS: NT Pro B Type Natriuretic Pept 2650 pg/mL (19.9-100)
--- NOTE | 2025-01-03 07:55 | PM.DS ---
DS: Admitting Diagnosis Discharge Date 01/03/2025 Admitting Diagnosis Generalized weakness DS: Discharge Diagnosis Discharge Diagnosis (1) Generalized weakness: Code(s): R53.1 - Weakness Status: Acute Assessment and Plan: patient had a fall requiring her to be helped up by staff staff is not able to assist patients so she was sent for evaluation patient diagnosed with covid a few days ago at her [facility] Covid + here on PCR PT/OT eval and treat fall precautions patient has been walking in her room with a walker (2) COVID: Code(s): U07.1 - COVID-19 Status: Acute Assessment and Plan: per report patient tested positive a few days ago at her AL patient reports she had a cough but that it has resolved covid + here on PCR s/p PO prednisone in ED CXR with no acute changes patient on room air, denies cough or dyspnea isolation PT/OT (3) Elevated troponin: Code(s): R79.89 - Other specified abnormal findings of blood chemistry Status: Acute Assessment and Plan: patients initial troponin was 0.078 and repeat this AM was 0.140 and 0.108 patient denies chest pain or dyspnea appears to be related to demand ischemia (4) Elevated brain natriuretic peptide (BNP) level: Code(s): R79.89 - Other specified abnormal findings of blood chemistry Status: Acute Assessment and Plan: patients BNP 5510 on admission patient has 1+ edema to BLE which patient reports has been worsening over months per notes from nephrology patient was taking PO lasix as outpatient but it does not apper she is taking now restart PO lasix 20 mg daily monitor kidney function BNP this AM improved to 2650 patient needs to f/u with cardiology on discharge, discussed with patient and written on discharge instructions (5) Acquired thrombocytopenia: Code(s): D69.6 - Thrombocytopenia, unspecified Status: Acute Assessment and Plan: Plt count on admission 67 review of previous labs appears her basline is the low 100's most likely reactive to acute illness no signs of bleeding (6) Acute cystitis: Code(s): N30.00 - Acute cystitis without hematuria Status: Acute Assessment and Plan: UA with rbc 6-10, wbc 10-15 with wbc clumps f/u urine culture s/p IV zosyn in ED IV Rocephin change to PO Keflex x 2 more days (7) Diastolic dysfunction: Code(s): I51.89 - Other ill-defined heart diseases Status: Acute Assessment and Plan: patients BNP elevated 5510 on admission restart patients home lasix 20 mg PO daily patient denies dyspnea and reports edema has been worsening over months monitor kidney function patient sees cardiology as outpatient 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 Patient was treated with IV antibiotics for the UTI and switched to PO Keflex on discharge. Urine culture will be followed after discharge. Patient's troponins reviewed and appear to be a result of demand ischemia. Patient's BNP was elevated and I restarted her furosemide. Patient's BNP improved from 5510 to 2650 on day of discharge. Patient denied cough, dyspnea related to Covid-19 diagnosis. Patient does not need steroids. Patient's strength improved and patient was ambulating in her room with a walker, this is her baseline at her assisted living facility. Patient to be discharged back to her [facility] today. patient will need to follow up with her PCP, cardiology and nephrology after discharge. Time Spent with Patient Time attestation: Total time spent providing and/or coordinating discharge services: 25 Minutes Exam Narrative: General: elderly, no acute distress HEENT: normocephalic, . Mucous membranes moist. EOMI Respiratory: clear to auscultation bilaterally, no wheeze, rales, rhonchi Cardiovascular: Regular rate and rhythm, normal S1-S2 upon auscultation. No murmurs, rubs, or clicks. Abdomen: Soft, round, no pulsatile masses, nondistended and nontender. No rebound, no guarding. Bowel sounds present to all four quadrants Extremities: No cyanosis, clubbing. trace edema to BLE. Neuro: Alert and orientated x 4. Cranial nerves 2-12 intact without focal deficit. Poor historian. Skin: Warm, dry, and intact, without rash, erythema, or lesion.? Psych: pleasant, cooperative, normal speech, normal affect DS: Data Data Completed and Pending Labs on day of discharge: Labs from last 24 hours 01/03/25 01/02/25 01/02/25 07:11 11:04 05:59 Sodium 135 L Potassium 4.6 Chloride 103 Carbon Dioxide 21 L Anion Gap 11 BUN 35 H Creatinine 1.68 H Estim Creat Clear Calc 22 Estimated GFR 29 L Glucose 101 Calculated Osmolality 288 Calcium 8.6 Total Bilirubin 0.7 AST 77 H ALT 26 Alkaline Phosphatase 76 Troponin I 0.108 H* D 0.140 H* NT-Pro-B Natriuret Pep 2650 H Total Protein 6.9 Albumin 3.8 Discharge Plan Discharge Attending physician on discharge: Lauri Goddard Discharging Clinician: Sherry Suarez Patient Disposition: Home Activity: as tolerated Diet: heart healthy Patient Instructions: Antibiotic Form, Cephalexin (By mouth), Furosemide (By mouth), Fall Prevention for Older Adults (DC), Urinary Tract Infection in Older Adults (DC), COVID-19 (Coronavirus Disease 2019) (DC) Patient Language: [place] Stand Alone Forms: General Discharge Information Follow-up/Referrals: Aguilar Garcia DO [Physician, Cardiology] Referral Note: Please follow up within 1-2 weeks of discharge Eliseo Mar MD [Primary Care Provider, Internal Medicine] Referral Note: Please make an appointment to be seen within 1-2 weeks of discharge. Please have your electrolyte levels and kidney function checked at this appointment (BMP). Filippo Duff MD [Physician, Nephrology] Referral Note: Please make an appointment to follow up in 1-2 weeks Discharge Medications: New cephalexin 500 mg Capsule 500 mg PO Q12HR Qty: 3 0RF furosemide 20 mg Tablet 20 mg PO DAILY Qty: 30 0RF Continued ergocalciferol (vitamin D2) 1,250 mcg (50,000 unit) capsule 1,250 mcg PO WEEKLY rosuvastatin 20 mg tablet 20 mg PO DAILY ropinirole 2 mg tablet 2 mg PO Q12H metoprolol succinate 25 mg tablet extended release 24 hr 25 mg PO DAILY gabapentin 300 mg capsule 300 mg PO DAILY omeprazole 40 mg capsule,delayed release(DR/EC) 40 mg PO QAM Patient Comments: Take 30 minutes before breakfast Rx Instructions: Take 30 minutes before breakfast Date of admission: 01/02/25 08:28 Primary Care Provider: Eliseo Mar Admitting Provider: Lauri Goddard Attending physician on admission: Lauri Goddard Condition: Stable Quality VTE Prophylaxis VTE prophylaxis: mechanical ordered and pharmacologic ordered
[2025-01-03 08:00] VITALS: BP 156/53; PULSE 65; RESP 17; TEMP 36.1; O2SAT 99
[2025-01-03 09:30] VITALS: PULSE 65
[2025-01-03] MEDS: METOPROLOL SUCCINATE EXT REL 25 MG TABCR PO (09:30)
[2025-01-03] MEDS: ROSUVASTATIN 10 MG TABLET 20 MG PO (09:31)
[2025-01-03] MEDS: FUROSEMIDE 20 MG TABLET PO (09:31)
[2025-01-03] MEDS: CEPHALEXIN 500 MG CAPSULE PO (09:31)
[2025-01-03] MEDS: PANTOPRAZOLE 40 MG TABLET PO (09:31)
[2025-01-03] MEDS: GABAPENTIN 300 MG CAPSULE PO (09:31)
[2025-01-03] MEDS: ARTIFICIAL TEARS OPHTH SOLN 15 ML BOTTLE 1 DROP EACH EYE (09:33)
--- NOTE | 2025-01-03 10:41 | PC.NURSE ---
Call made to the [facility] to alert of patient discharge today, advised they will have to evaluate her for appropriateness before she can be released back to the facility, patient and daughter notified, call back and Vania from the [facility] should be out about noon to evaluate her.
--- NOTE | 2025-01-03 12:20 | PC.NURSE ---
Vania gao the [facility] at bedside to assess patient for return. Pt okayed to return today.
--- NOTE | 2025-01-03 12:35 | PC.NURSE ---
Discharge instructions reviewed with patient and her daughter in law. All questions answered. Pt transported via wheelchair and assisted into private vehicle.
--- NOTE | 2025-01-04 08:45 | PC.NURSE ---
Urine cx shows mixed urogenital alana.
--- NOTE | 2025-01-05 12:15 | PC.NURSE ---
Follow up call to the [facility], doing well, no concerns.
== END 2025-01-03 12:35 | DRG 178 ==
LOC: CHSED 20:20 → CHS2ND 20:44
PROVIDERS: Nurse Practitioner Adult Health; Admitting Provider Internal Medicine; Emergency Provider Emergency Medicine; PCP Internal Medicine; Visit Provider Internal Medicine
DX: U07.1 COVID-19 (principal); I13.0 Hypertensive heart and chronic kidney disease with heart failure and stage 1 through stage 4 chronic kidney disease, or unspecified chronic kidney disease; N30.00 Acute cystitis without hematuria; I24.89 Other forms of acute ischemic heart disease; I50.32 Chronic diastolic (congestive) heart failure; R53.1 Weakness; D69.6 Thrombocytopenia, unspecified; E78.5 Hyperlipidemia, unspecified; G25.81 Restless legs syndrome; G62.9 Polyneuropathy, unspecified; I73.9 Peripheral vascular disease, unspecified; K21.9 Gastro-esophageal reflux disease without esophagitis; N18.9 Chronic kidney disease, unspecified; Z95.4 Presence of other heart-valve replacement; Z85.3 Personal history of malignant neoplasm of breast; Z87.891 Personal history of nicotine dependence
CPT/HCPCS: 36415; 71045; 80053; 81001; 83605; 83880; 84484; 85025; 85055; 87040; 87086; 87637; 93005; 96361; 96365; 99285; A9270; G0378; J0696; J2543; J7030; J7512

== ENCOUNTER 2025-02-15 11:03 | Outpatient (CLI) | payer MEDICARE, SELFPAY ==
[2025-02-15 11:14] LABS: Hematocrit 32.8 % (35.0-42.0); Hemoglobin 10.9 g/dL (11.7-13.8); Mean Corpuscular HGB Conc 33.2 g/dL (32-36); Mean Corpuscular Hemoglobin 32.0 pg (27.0-31.0); Mean Corpuscular Volume 96.2 fL (78.0-102.0); Platelet Count Result 106 K/mm3 (150-420); Red Blood Count 3.41 M/mm3 (4.20-5.40); White Blood Count 8.0 K/mm3 (4.8-10.8)
[2025-02-15 11:36] LABS: Albumin Level 4.6 g/dL (3.5-5.1); Anion Gap 8 mmol/L (4-12); Blood Urea Nitrogen 25 mg/dL (7-17); Calcium 9.7 mg/dL (8.4-10.2); Carbon Dioxide 29 mmol/L (22-30); Chloride 103 mmol/L (98-107); Estimated Glomerular Filt Rate 33; Glucose 96 mg/dL (65-110); Osmolality Calculated 294 mOsm/kg (285-295); Potassium 5.8 mmol/L (3.4-5.0); Sodium 140 mmol/L (137-145)
[2025-02-15 11:49] LABS: Total Protein Urine Random 38 mg/dL; Ur Ttl Prot Creatinine Ratio 0.36 mg/mg (0-0.20)
[2025-02-16 23:26] LABS: Parathyroid Intact 80.5 (7.5-53.5)
== END 2025-02-15 11:04 | disposition home or self-care (01) ==
LOC: CHSLAB 11:04
PROVIDERS: PCP Internal Medicine; Visit Provider Internal Medicine Nephrology
DX: R94.4 Abnormal results of kidney function studies (principal)
CPT/HCPCS: 36415; 80069; 82570; 83970; 84156; 85027

== ENCOUNTER 2025-03-22 13:01 | Outpatient (CLI) | payer MEDICARE, SELFPAY ==
[2025-03-22 13:20] LABS: Hematocrit 34.5 % (35.0-42.0); Hemoglobin 11.2 g/dL (11.7-13.8); Mean Corpuscular HGB Conc 32.5 g/dL (32-36); Mean Corpuscular Hemoglobin 31.6 pg (27.0-31.0); Mean Corpuscular Volume 97.5 fL (78.0-102.0); Platelet Count Result 101 K/mm3 (150-420); Red Blood Count 3.54 M/mm3 (4.20-5.40); White Blood Count 6.0 K/mm3 (4.8-10.8)
[2025-03-22 14:15] LABS: Alanine Aminotransferase 23 U/L (6-35); Albumin Level 4.6 g/dL (3.5-5.1); Alkaline Phosphatase 118 U/L (38-126); Anion Gap 11 mmol/L (4-12); Aspartate Amino Transferase 38 U/L (14-36); Bilirubin,Total 0.3 mg/dL (0.2-1.3); Blood Urea Nitrogen 29 mg/dL (7-17); Calcium 9.6 mg/dL (8.4-10.2); Carbon Dioxide 27 mmol/L (22-30); Chloride 102 mmol/L (98-107); Estimated Glomerular Filt Rate 27; Glucose 128 mg/dL (65-110); Osmolality Calculated 297 mOsm/kg (285-295); Sodium 140 mmol/L (137-145); Total Protein 7.4 g/dL (6.3-8.2)
[2025-03-22 14:24] LABS: NT Pro B Type Natriuretic Pept 1490 pg/mL (19.9-100)
[2025-03-22 14:42] LABS: Potassium 6.0 mmol/L (3.4-5.0)
== END 2025-03-22 13:02 | disposition home or self-care (01) ==
LOC: CHSLAB 13:02
PROVIDERS: PCP Internal Medicine; Visit Provider Internal Medicine Nephrology
DX: N18.9 Chronic kidney disease, unspecified (principal); E87.5 Hyperkalemia; I50.9 Heart failure, unspecified; D64.9 Anemia, unspecified
CPT/HCPCS: 36415; 80053; 83880; 85027

== ENCOUNTER 2025-03-24 13:05 | Outpatient (CLI) | payer MEDICARE, SELFPAY ==
[2025-03-24 13:55] LABS: Anion Gap 7 mmol/L (4-12); Blood Urea Nitrogen 26 mg/dL (7-17); Calcium 9.4 mg/dL (8.4-10.2); Carbon Dioxide 31 mmol/L (22-30); Chloride 101 mmol/L (98-107); Estimated Glomerular Filt Rate 28; Glucose 116 mg/dL (65-110); Osmolality Calculated 293 mOsm/kg (285-295); Sodium 139 mmol/L (137-145)
[2025-03-24 14:04] LABS: NT Pro B Type Natriuretic Pept 1670 pg/mL (19.9-100)
[2025-03-24 14:12] LABS: Potassium 6.0 mmol/L (3.4-5.0)
== END 2025-03-24 13:06 | disposition home or self-care (01) ==
LOC: CHSLAB 13:06
PROVIDERS: PCP Internal Medicine; Visit Provider Nurse Practitioner Family
DX: I50.9 Heart failure, unspecified (principal)
CPT/HCPCS: 36415; 80048; 83880

== ENCOUNTER 2025-03-29 13:00 | Outpatient (CLI) | payer MEDICARE, SELFPAY ==
[2025-03-29 13:39] LABS: Anion Gap 11 mmol/L (4-12); Blood Urea Nitrogen 31 mg/dL (7-17); Calcium 9.0 mg/dL (8.4-10.2); Carbon Dioxide 31 mmol/L (22-30); Chloride 98 mmol/L (98-107); Estimated Glomerular Filt Rate 24; Glucose 136 mg/dL (65-110); Osmolality Calculated 298 mOsm/kg (285-295); Potassium 4.2 mmol/L (3.4-5.0); Sodium 140 mmol/L (137-145)
== END 2025-03-29 13:01 | disposition home or self-care (01) ==
LOC: CHSIMG 13:01
PROVIDERS: PCP Internal Medicine; Visit Provider Internal Medicine Nephrology
DX: N18.9 Chronic kidney disease, unspecified (principal)
CPT/HCPCS: 36415; 80048